=== PATIENT | female | born 1965 | race Caucasian/White ===

== ENCOUNTER 2018-08-07 11:30 | Emergency (ER) | payer OTHER ==
[2018-08-07 12:59] LABS: Urine Bacteria <20 /HPF (<20)
[2018-08-07 13:00] LABS: Urine Culture Reflex Order NOT NEEDED; Urine Mucus 1+ /HPF (NONE SEEN)
--- NOTE | 2018-08-07 13:01 | RAD REPORT ---
EXAM DESCRIPTION: Jorge Cash (2 Views)08/07/2018 12:52 pm CLINICAL HISTORY: Cough COMPARISON: 2014 FINDINGS: The lungs appear clear of acute infiltrate. The heart is normal size IMPRESSION: No acute abnormalities displayed
--- NOTE | 2018-08-07 13:44 | EDPHYS ---
Physician Documentation [facility] Name: Brittany Schulte Age: 53 yrs Sex: Female : 1965 Arrival Date: 08/07/2018 Time: 11:33 Bed 16 Private MD: Rishi Alfaro H ED Physician Dean Zacarias HPI: 08/07 12:10 This 53 yrs old Female presents to ER via Ambulatory with complaints of Sinus cp Congestion, Cough. 12:10 The patient or guardian reports cough, that is intermittent. Onset: The cp symptoms/episode began/occurred 6 month(s) ago, and became worse 4 day(s) ago. Severity of symptoms: in the emergency department the symptoms are unchanged, despite home interventions. Associated signs and symptoms: Pertinent positives: rhinorrhea, sinus congestion, Pertinent negatives: chest pain, fever, sore throat, vomiting. The patient has been recently seen by a physician: the patient's primary care provider, with similar presenting complaints, given RX for cough syrup and inhaler. Historical: - Allergies: 11:40 No Known Allergies; hb - Home Meds: 11:40 Keppra 500 mg Oral tab at bedtime [Active]; hb - PSHx: 11:40 Lumpectomy; Brain sx; hb - Immunization history:: Adult Immunizations up to date. - Social history:: Smoking status: Patient/guardian denies using tobacco. - Ebola Screening: : No symptoms or risks identified at this time. ROS: 12:15 Constitutional: Negative for body aches, chills, fever, poor PO intake. cp 12:15 Eyes: Negative for injury, pain, redness, and discharge. cp 12:15 ENT: Positive for sinus congestion, Negative for drainage from ear(s), ear pain, sore throat, difficulty swallowing, difficulty handling secretions. 12:15 Cardiovascular: Negative for chest pain, edema, palpitations. 12:15 Respiratory: Positive for cough, Negative for shortness of breath, wheezing. 12:15 Abdomen/GI: Negative for abdominal pain, nausea, vomiting, and diarrhea. 12:15 Skin: Negative for cellulitis, rash. 12:15 All other systems are negative. Exam: 12:20 Constitutional: The patient appears in no acute distress, alert, awake, cp non-diaphoretic, non-toxic, well developed, well nourished. 12:20 Head/Face: Normocephalic, atraumatic. cp 12:20 Eyes: Periorbital structures: appear normal, Conjunctiva: normal, no exudate, no injection, Sclera: no appreciated abnormality, Lids and lashes: appear normal, bilaterally. 12:20 ENT: External ear(s): are unremarkable, Ear canal(s): are normal, clear, TM's: bulging, is not appreciated, bilaterally, dullness, bilaterally, erythema, is not appreciated, bilaterally, Nose: is normal, Mouth: Lips: moist, Oral mucosa: pink and intact, moist, Posterior pharynx: Airway: no evidence of obstruction, patent, Tonsils: are normal in appearance, Uvula: midline, non-edematous, no erythema, swelling, is not appreciated, erythema, is not appreciated, exudate, is not appreciated. 12:20 Neck: ROM/movement: is normal, is supple, without pain, no range of motions limitations, no meningismus, no nuchal rigidity. 12:20 Chest/axilla: Inspection: normal, Palpation: is normal, no crepitus, no tenderness. 12:20 Cardiovascular: Rate: normal, Rhythm: regular, Edema: is not appreciated, JVD: is not appreciated. 12:20 Respiratory: the patient does not display signs of respiratory distress, Respirations: normal, no use of accessory muscles, no retractions, no splinting, no tachypnea, labored breathing, is not present, Breath sounds: bronchial sounds, are not appreciated, decreased breath sounds, are not appreciated, stridor, is not appreciated, wheezing: is not appreciated. 12:20 Abdomen/GI: Exam negative for discomfort, distension, guarding, Inspection: abdomen appears normal. 12:20 Back: pain, is absent, ROM is normal. 12:20 Skin: cellulitis, is not appreciated, no rash present. 12:20 Neuro: Orientation: to person, place \T\ time. Mentation: is normal, Cerebellar function: is grossly normal, Motor: is normal, Sensation: is normal. Vital Signs: 11:40 BP 198 / 88; Pulse 88; Resp 16; Temp 97.7; Pulse Ox 100% on R/A; Pain 3/10; hb 13:28 BP 137 / 87; Pulse 85; Resp 18; Temp 97.5; Pulse Ox 100% on R/A; ph MDM: 11:42 Patient medically screened. cp 12:30 Differential Diagnosis: Bronchitis Influenza Asthma Exacerbation Viral Syndrome cp Pneumonia. 13:22 Data reviewed: vital signs, nurses notes, lab test result(s), radiologic studies, plain cp films, and as a result, I will discharge patient. 13:22 Test interpretation: by ED physician or midlevel provider: plain radiologic studies. cp Counseling: I had a detailed discussion with the patient and/or guardian regarding: the historical points, exam findings, and any diagnostic results supporting the discharge/admit diagnosis, lab results, radiology results, the need for outpatient follow up, a family practitioner, to return to the emergency department if symptoms worsen or persist or if there are any questions or concerns that arise at home. 08/07 12:03 Order name: Strep; Complete Time: 13:05 08/07 12:03 Order name: Influenza Screen (a \T\ B); Complete Time: 13:05 08/07 12:34 Order name: Urine Microscopic Only; Complete Time: 13:05 08/07 13:05 Interpretation: Normal except: URBC 10-20; SQEPI 5-10. 08/07 12:59 Order name: Urine Dipstick--Ancillary (enter results) [facility] 08/07 12:59 Order name: Urine --Ancillary (enter results) [facility] 08/07 13:01 Order name: Throat Culture [facility] 08/07 12:03 Order name: XRAY Chest Pa And Lat (2 Views); Complete Time: 13:05 08/07 12:34 Order name: Urine Dipstick-Ancillary (obtain specimen); Complete Time: 12:48 08/07 13:19 Order name: Vital Signs; Complete Time: 13:28 cp Administered Medications: No medications were administered Disposition: 08/07/18 13:43 Discharged to Home. Impression: Cough. - Condition is Stable. - Discharge Instructions: Cough, Adult. - Prescriptions for Tessalon Perles 100 mg Oral Capsule - take 2 capsule by ORAL route every 8 hours As needed; 30 capsule. Medrol ([place]) 4 mg Oral Tablets, Dose Pack - take 1 tablet by ORAL route as directed - follow package instructions; 1 packet. Flonase Allergy Relief 50 mcg/actuation Nasal spray,suspension - inhale 1 spray by INTRANASAL route once daily for 14-21 days; 1 unit. - Medication Reconciliation Form, Thank You Letter, Antibiotic Education, Prescription Opioid Use form. - Follow up: Rishi Alfaro DO; When: 2 - 3 days; Reason: Recheck today's complaints. - Problem is an ongoing problem. - Symptoms have improved. Addendum: 08/09/2018 07:12 Co-signature as Attending Physician, Dean Zacarias MD. r n Signatures: Dispatcher [employer] EDKY Dean Zacarias MD MD rn Smirch, Shelby, RN RN ss Ezio Huynh PA PA cp Yris Devi RN RN Corrections: (The following items were deleted from the chart) 08/07 13:58 13:43 08/07/2018 13:43 Discharged to Home. Impression: Cough. Condition is Stable. ss Forms are Medication Reconciliation Form, Thank You Letter, Antibiotic Education, Prescription Opioid Use. Follow up: Rishi Alfaro; When: 2 - 3 days; Reason: Recheck today's complaints. Problem is an ongoing problem. Symptoms have improved. cp
--- NOTE | 2018-08-07 13:44 | ER ---
Nurse's Notes [facility] Name: Brittany Schulte Age: 53 yrs Sex: Female : 1965 Arrival Date: 08/07/2018 Time: 11:33 Bed 16 Private MD: Rishi Alfaro H Diagnosis: Cough Presentation: 08/07 11:39 Presenting complaint: Patient states: Low back pain, cough, sinus congestion, headache, hb body aches, and burning with urination x 4 days. Transition of care: patient was not received from another setting of care. Onset of symptoms was August 03, 2018. Risk Assessment: Do you want to hurt yourself or someone else? Patient reports no desire to harm self or others. Care prior to arrival: None. 11:39 Method Of Arrival: Ambulatory hb 11:39 Acuity: ANNMARIE 3 hb Historical: - Allergies: 11:40 No Known Allergies; hb - Home Meds: 11:40 Keppra 500 mg Oral tab at bedtime [Active]; hb - PSHx: 11:40 Lumpectomy; Brain sx; hb - Immunization history:: Adult Immunizations up to date. - Social history:: Smoking status: Patient/guardian denies using tobacco. - Ebola Screening: : No symptoms or risks identified at this time. Screenin:41 Abuse screen: Denies threats or abuse. Denies injuries from another. Nutritional hb screening: No deficits noted. Tuberculosis screening: No symptoms or risk factors identified. Fall Risk None identified. Assessment: 12:15 General: Appears in no apparent distress. comfortable, well groomed, Behavior is calm, ph cooperative, appropriate for age. Pain: Complains of pain in "all over" and low back area. Neuro: Level of Consciousness is awake, alert, obeys commands, Oriented to person, place, time, situation. Cardiovascular: Capillary refill < 3 seconds in bilateral fingers Patient's skin is warm and dry. Respiratory: Reports cough that is Airway is patent Respiratory effort is even, unlabored, Respiratory pattern is regular, symmetrical. GI: No signs and/or symptoms were reported involving the gastrointestinal system. : Reports burning with urination, pain in lower back with urination. EENT: Reports nasal congestion nasal discharge Denies difficulty swallowing. Derm: Skin is intact, is healthy with good turgor, Skin is pink, warm \\T\\ dry. Musculoskeletal: Circulation, motion, and sensation intact. Range of motion: intact in all extremities. 13:30 Reassessment: Patient appears in no apparent distress at this time. Patient and/or ph family updated on plan of care and expected duration. Pain level reassessed. Patient is alert, oriented x 3, equal unlabored respirations, skin warm/dry/pink. Pt resting quietly, awaiting d/c family at bedside. Vital Signs: 11:40 BP 198 / 88; Pulse 88; Resp 16; Temp 97.7; Pulse Ox 100% on R/A; Pain 3/10; hb 13:28 BP 137 / 87; Pulse 85; Resp 18; Temp 97.5; Pulse Ox 100% on R/A; ph ED Course: 11:33 Patient arrived in ED. sb2 11:33 Rishi Alfaro DO is Private Physician. sb2 11:40 Triage completed. hb 11:40 Arm band placed on left wrist. hb 11:41 Ezio Huynh PA is PHCP. cp 11:41 Dean Zacarias MD is Attending Physician. cp 11:46 Emmy Fletcher, JENNY is Primary Nurse. ph 12:38 Flu and/or RSV swab sent to lab. Strep swab sent to lab. dh3 12:48 Urine collected: clean catch specimen, clear. dh3 12:50 X-ray completed. Patient tolerated procedure well. sw 12:52 XRAY Chest Pa And Lat (2 Views) In Process Unspecified. EDMS 13:43 Rishi Alfaro DO is Referral Physician. cp 13:58 No provider procedures requiring assistance completed. Patient did not have IV access ss during this emergency room visit. Administered Medications: No medications were administered Outcome: 13:43 Discharge ordered by MD. cp 13:58 Discharged to home ambulatory, with family. ss 13:58 Condition: good 13:58 Discharge instructions given to patient, family, Instructed on discharge instructions, follow up and referral plans. Demonstrated understanding of instructions, follow-up care, medications, Prescriptions given X 3. 13:58 Patient left the ED. ss Signatures: Dispatcher [employer] EDKY Kirti Pressley RN RN Emmy Fletcher RN RN ph Ijeoma Richards Ezio Huynh PA PA cp Baxter, Heather, RN RN Claudia Horvath 3 Catherine Irvin 2
[2018-08-07 14:06] VITALS: O2SAT 100
[2018-08-07 14:08] VITALS: BP 137/87; TEMP 97.5
[2018-08-07 14:16] LABS: Urine Blood 1+ (NEG); Urine Glucose NEGATIVE (NEG); Urine Protein TRACE (NEG)
== END 2018-08-07 13:58 | disposition home or self-care (01) ==
LOC: ER 11:30
DX: R05 Cough (principal)
CPT/HCPCS: 71046; 81003; 81015; 81025; 87070; 87081; 87804; 99283

== ENCOUNTER 2018-08-08 12:12 | Emergency (ER) | payer OTHER ==
--- OUTSIDE RECORDS SUMMARY | 2018-08-08 12:15 | XMS REPORT | Continuity of Care Document ---
:1965 Author Organization Interface Problems Problem Status Onset Classification Date Comments Source Date Reported LOCALIZATION Active 03/17/20 [facility] RELATED EPILEPSY Medical AND EPILEP Center SEIZURES Active 12/11/19 [place] [id number] [facility] Center INTRACTABLE Active 11/07/19 [facility] SEIZURES 15 [facility] Seizures Resolved Problem 08/19/2015 [facility] Final: 01/24/2015 [facility] PSYMOTR EPIL W Active [facility] INTR [facility] Center FEBRILE Active [facility] CONVULSIONS NOS [facility] Medications Medication Details Route Status Patient Ordering Order Source Instructions Provider Date Sodium Chloride 1,000 mL, 1,000 Inactive 01/21[facility] [place] 0.154 MEQ/ML ml/hr, Infuse Formerly named [facility] Medical Injectable Over: 1 hr, [place] Solution Route: IV, 1,000, Drug form: INJ, ONCE, Priority: STAT, Dosing Weight 70 kg, Start date: 01/21/15 10:15:00, Duration: 1 doses or times, Stop date: 01/21/15 10:15:00 Milk of Magnesia 2.4 gm=30 mL, Active [place] 8% oral PO, Daily, PRN 2015 Medical suspension Constipation, X Center 10 day, # 300 mL, 0 Refill(s) Citrate of 300 ml, Route: Inactive 01/21[facility] [place] Magnesia PO, Drug Form: 2014 Medical LIQ, Dosing Center Weight 70, kg, ONCE, NOW, Start date: 01/21/15 8:11:00, Stop date: 01/21/15 8:11:00Notes: (Same as: Citrate of Magnesia) magnesium 300 ml, Route: Inactive 01/21[facility] citrate PO, Drug Form: 2014 Medical LIQ, Dosing Center Weight 70, kg, ONCE, NOW, Start date: 01/21/15 5:58:00, Stop date: 01/21/15 5:58:00Notes: (Same as: Citrate of Magnesia) Acetaminophen 1 tab, PO, Q4H, Active 01/21[facility] [place] 300 MG / Codeine PRN Pain, X 10 2014 Medical Phosphate 30 MG day, # 60 tab, 0 Center Oral Tablet Refill(s) [Tylenol with Codeine #3] heparin sodium, 5,000 unit, 1 Inactive [facility] porcine 2500 mL, Route: 2014 Medical UNT/ML SUB-Q, Drug Center Injectable form: INJ, Q8H, Solution Dosing Weight 70, kg, Start date: 01/21/15 0:00:00, Duration: 30 day, Stop date: 02/19/15 16:00:00Notes: porcine heparin levETIRAcetam 750 mg, 3 tab, No Longer [facility] Route: PO, Drug Active 2014 Medical form: TAB, Q12H, Center Dosing Weight 70, kg, Start date: 01/19/15 21:00:00, Duration: 30 day, Stop date: 02/18/15 9:00:00Notes: (Same as:Kebolivar) Divalproex 500 mg, 1 tab, No Longer [facility] Sodium 500 MG Route: PO, Drug Active 2014 Medical Enteric Coated form: ECTAB, [place] Tablet Q12H, Dosing [Depakote] Weight 70, kg, Start date: 01/19/15 21:00:00, Duration: 30 day, Stop date: 02/18/15 9:00:00, Delayed Release tabletSpecial Instructions: Delayed Release tabletNotes: (Same as: Depakote Delayed Release) Do not confuse with the extended-release tablet. Delayed absorption enteric coated tablet. Do not crush Ondansetron 4 mg, Route: Inactive [facility] IVP, ONCE, 2014 Medical Dosing Weight Center 70, kg, PRN Nausea & Vomiting, Start date: 01/19/15 13:19:00 Naloxone 0.04 mg, Route: Inactive [facility] IVP, Q2MIN, 2014 Medical Dosing Weight Center 70, kg, PRN Narcotic Reversal, Start date: 01/19/15 13:19:00, Duration: 8 doses or times, Stop date: Limited # of times Flumazenil 0.2 mg, Route: Inactive [facility] IVP, PRN, Dosing 2014 Medical Weight 70, kg, Center PRN Benzodiazepine Reversal, Initial dose, Start date: 01/19/15 13:19:00, Duration: 30 day, Stop date: 02/18/15 13:18:00 Hydromorphone 0.5 mg, Route: Inactive [facility] IVP, Q5Min, 2014 Medical Dosing Weight Center 70, kg, PRN Pain Score 7-10, Start date: 01/19/15 13:19:00, Duration: 4 doses or times, Stop date: Limited # of times Keppra 1,000 mg, Route: Inactive [facility] IVPB, ONCE, 2014 Medical Dosing Weight Center 70, kg, Loading Dose, Start date: 01/19/15 13:04:00, Duration: 1 doses or times, Stop date: 01/19/15 13:04:00Notes: Same as Keppra Mix with 100 mL NS, LR or D5W MEDICATION WASTE Product Size: 500 mg Product Wasted: ___ mg Dexamethasone 4 mg, 1 mL, No Longer [facility] Route: IVP, Drug Active 2014 Medical form: INJ, Q6H, Center Dosing Weight 70, kg, Start date: 01/19/15 12:00:00, Duration: 24 hr, Stop date: 01/20/15 6:00:00Notes: Concentration: 4mg/ml Docusate 100 mg, 1 cap, No Longer [facility] Route: PO, Drug Active 2014 Medical form: CAP, Q12H, Center Dosing Weight 70, kg, Start date: 01/19/15 9:00:00, Duration: 30 day, Stop date: 02/17/15 21:00:00Notes: (Same as: Colace) (Do Not Crush) senna 8.6 mg 8.6 mg, 1 tab, No Longer [facility] oral tablet Route: PO, Drug Active 2014 Medical Form: TAB, Center Dosing Weight 70, kg, Q12H, Start date: 01/19/15 9:00:00, Duration: 30 day, Stop date: 02/17/15 21:00:00Notes: (Same as: Senokot) Famotidine 20 mg, 2 mL, Inactive [facility] Route: IVP, Drug 2014 Medical form: INJ, Q12H, Center Dosing Weight 70, kg, Start date: 01/19/15 9:00:00, Duration: 24 hr, Stop date: 01/19/15 21:00:00Notes: (Same as: Pepcid) Can be dilute in 5-10cc NS IVP: Slow IV push over at least 2 minutes. Ancef 2 gm, Route: Inactive [facility] IVPB, ONCE, 2014 Medical Dosing Weight Center 70, kg, Start date: 01/19/15 8:40:00, Duration: 1 doses or times, Stop date: 01/19/15 8:40:00 Cefazolin 2 gm, Route: No Longer [facility] IVPB, Drug form: Active 2014 Medical INJ, Q8H, Dosing Center Weight 70, kg, Priority: Routine, Start date: 01/19/15 7:00:00, Stop date: 01/20/15 9:00:00Notes: (Same As: Ancef, Kefzol) Cefazolin FOR IV SET ONLY MEDICATION WASTE Product Size: 1000 mg Product Wasted: ___ mg Vancomycin 1 gm, Route: Inactive [facility] IVPB, Drug form: 2014 Medical INJ, [id number], Center Dosing Weight 70, kg, Time Critical Medication, Priority: Routine, Start date: 01/19/15 7:00:00, Duration: 2 doses or times, Stop date: 01/19/15 19:00:00Notes: TIME CRITICAL MEDICATION (Same As: Vancocin) Infusion rate 2001 mg: infuse over 2.5 hours MEDICATION WASTE Product Size: 1000 mg Product Wasted: ___ mg Regular Insulin, 3 unit, 0.03 mL, No Longer [facility] Human 100 UNT/ML Route: SUB-Q, Active 2014 Medical Injectable Drug form: SOLN, Center Solution PRN, Dosing Weight 70, kg, PRN Abnormal Lab Result, Start date: 01/19/15 6:36:00, Duration: 30 day, Stop date: 02/18/15 6:35:00Notes: (Same as: Humulin R) Roll in palms of hands gently; Do not shake vigorously. "single patient use only" (Restricted to patients requiring a dose > 60 units) Stable for 28 days at room temperature Expires in days from Da te Dextrose 50% 6.25 gm, 12.5 No Longer [place] Syringe mL, Route: IVP, Active 2014 Medical Drug Form: INJ, Center Dosing Weight 70, kg, PRN, PRN Abnormal Lab Result, Start date: 01/19/15 6:36:00, Duration: 30 day, Stop date: 02/18/15 6:35:00 Ondansetron 4 MG 4 mg, 1 tab, No Longer [place] Disintegrating Route: PO, Drug Active 2014 Medical Tablet form: TABDIS, Center Q6H, Dosing Weight 70, kg, PRN Nausea & Vomiting, Start date: 01/19/15 6:34:00, Duration: 30 day, Stop date: 02/18/15 6:33:00Notes: (Same as: Zofran ODT) Ondansetron 4 mg, 2 mL, No Longer [facility] Route: IVP, Drug Active 2014 Medical form: INJ, Q6H, Center Dosing Weight 70, kg, PRN Nausea & Vomiting, Start date: 01/19/15 6:34:00, Duration: 30 day, Stop date: 02/18/15 6:33:00Notes: (Same as: Zofran) MEDICATION WASTE Product Size: 4 mg Product Wasted: ___ mg NS + KCL 20mEq/L 1,000 mL, Rate: No Longer [place] 1000ml (Premix) 80 ml/hr, Infuse Active 2014 Medical 1,000 mL over: 12.5 hr, Center Route: IV, Dosing Weight 70 kg, Total Volume: 1,000, Hepl[place] IV when PO > 500ml, Start date: 01/19/15 6:34:00, Duration: 30 day, Stop date: 02/18/15 6:33:00Notes: PREMIX IV - Do Not Alter Acetaminophen 650 mg, 2 tab, No Longer [facility] Route: PO, Drug Active 2014 Medical form: TAB, Q6H, Center Dosing Weight 70, kg, PRN For Temp > 100.4 F, Start date: 01/19/15 6:32:00, Duration: 30 day, Stop date: 02/18/15 6:31:00Notes: Do not exceed 4 gm/day. (Same as: Tylenol) Acetaminophen 1 tab, Route: No Longer [place] 325 MG / PO, Drug Form: Active 2014 Medical Hydrocodone TAB, Dosing Center Bitartrate 5 MG Weight 70, kg, Oral Tablet Q4H, PRN Pain [[place] 5/325] Score 1-3, Start date: 01/19/15 6:32:00, Duration: 30 day, Stop date: 02/18/15 6:31:00Notes: (Same as: [place] 325/5) Do not exceed 4gm/day of acetaminophen. Morphine 2 mg, 1 mL, No Longer [place] Route: IVP, Drug Active 2014 Medical form: INJ, Q2H, Center Dosing Weight 70, kg, PRN Pain Score 7-10, Start date: 01/19/15 6:32:00, Duration: 30 day, Stop date: 02/18/15 6:31:00Notes: (Same as:MORPhine Sulfate) Hydralazine 10 mg, 0.5 mL, No Longer [place] Route: IVP, Drug Active 2014 Medical form: INJ, Q2H, Center Dosing Weight 70, kg, PRN Hypertension, Start date: 01/19/15 6:32:00, Duration: 30 day, Stop date: 02/18/15 6:31:00Notes: (Same as: Apresoline) Push over 5 minutes Divalproex 500 mg, 1 tab, Inactive [place] Sodium 500 MG Route: PO, Drug 2014 Medical Enteric Coated form: ECTAB, [place] Tablet ONCE, Dosing Weight 70.455, kg, Start date: 11/19/14 10:05:00, Stop date: 11/19/14 10:05:00, Delayed Release tabletSpecial Instructions: Delayed Release tabletNotes: (Same as: Depakote Delayed Release) Do not confuse with the extended-release tablet. Delayed absorption enteric coated tablet. Do not crush Keppra XR 750mg Keppra XR 750mg No Longer [place] tablet tablet, 750 mg, Active 2014 Medical Drug form: MISC, [place] Route: PO, Bedtime, 11/16/14 21:00:00, Duration: 30 day, Stop date: 12/15/14 21:00:00 Keppra XR 750 mg, Route: Inactive [place] PO, Drug form: 2014 Medical ERTAB, Daily, Center Dosing Weight 70.455, kg, Start date: 11/16/14 9:00:00, Duration: 30 day, Stop date: 12/15/14 9:00:00 Divalproex 500 mg, 1 tab, No Longer [place] Sodium 500 MG Route: PO, Drug Active 2014 Medical Enteric Coated form: ECTAB, Center Tablet Q12H, Dosing [Depakote] Weight 70.455, kg, Start date: 11/16/14 9:00:00, Duration: 30 day, Stop date: 12/15/14 21:00:00 24 HR 750 mg=1 tab, Active [place] Levetiracetam PO, Daily 2014 Medical 750 MG Extended Center Release Tablet [Keppra] Levetiracetam 750 mg=1 tab, Inactive [place] 750 MG Oral PO, Bedtime, 0 2014 Medical Tablet [Keppra] Refill(s) Center Divalproex 500 mg=1 tab, Active [place] Sodium 500 MG PO, BID, 0 2014 Medical Enteric Coated Refill(s) Center Tablet [Depakote] Saline Flush 10 ml, Route: No Longer [place] 0.9% IVP, Drug Form: Active 2014 Medical INJ, kg, Q12H, Center Start date: 11/15/14 9:00:00, Duration: 30 day, Stop date: 12/14/14 21:00:00Notes: (Same as: BD Posiflush) Saline Flush 10 ml, Route: No Longer [place] 0.9% IVP, Drug Form: Active 2014 Medical INJ, kg, PRN, Center PRN Line Flush, Start date: 11/15/14 8:32:00, Duration: 30 day, Stop date: 12/15/14 8:31:00Notes: (Same as: BD Posiflush) Allergies, Adverse Reactions, Alerts Substance Category Reaction Severity Reaction Status Date Comments Source type Reported Immunizations Immunization Date Given Site Status Last Updated Comments Source Results Order Name Results Value Reference Date Interpretation Comments Source Range Brain wo Brain wo EXAM: MRI BRAIN WITHOUT CONTRAST 08/16 - [facility] contrast contrast /2015 - Medical MRI This report was dictated by a Vamp Marker/Fellow. I have personally reviewed the images as Center well as the Resident's interpretation and agree with the findings. DATE: Aug 16, 2015 09:20:00 AM Read by: Marley Rojo MD Resident: Marley Rojo MD Dictated Date/time: 08/16/15 11:10 Electronically Signed by: Anamaria Mendoza 08/16/15 11:54 FINAL REPORT INDICATION: Epilepsy TECHNIQUE: Multiplanar multisequence MRI images of the head were obtained without intravenous contrast administration. COMPARISON: MR of the brain dated November 15, 2014 FINDINGS: Postsurgical changes related to right anterior temporal lobectomy and amygdalohippocampectomy with minimal surrounding gliosis. No evidence of mass effect, midline shift or acute intracranial hemorrhage. Few scattered T2/FLAIR hyperintensities in the subcortical white matter, compatible with chronic microvascular ischemic change, not unexpected for patient age. The ventricles and cerebral sulci have normal size and configuration. Normal flow voids are maintained in the major intracranial vessels. The orbits, paranasal sinuses and mastoid air cells appear unremarkable. A 9 mm hemangioma is noted in the left side of the clivus, an d appears unchanged as compared to prior imaging. IMPRESSION: Postsurgical changes related to right anterior temporal lobectomy and amygdalohippocampectomy with minimal surrounding gliosis. CHEM PANEL eGFR 74 01/20 1Result Comment: The eGFR is calculated using the CKD-EPI formula. In most young, healthy individuals the eGFR will be >90 mL/ min/1.73m2. The eGFR declines with age. An eGFR of 60-89 may be normal in [facility] mL/min/1.73 /2014 some populations, particularly the elderly, for whom the CKD-EPI formula has not been extensively validated. Use of the eGFR is not recommended in the following populations: Medical Center Individuals with unstable creatinine concentrations, including patients and those with serious co-morbid conditions. Patients with extremes in muscle mass or diet. The data above are obtained from the National Kidney Disease Education Program (NKDEP) which additionally recommends that when the eGFR is used in patients with extremes of body mass index for purposes of drug dosing, the eGFR should be multiplied by the estimated BMI. CHEM PANEL Chloride Lvl 109 meq/L 95 - 109 01/20 [facility] CHEM PANEL CO2 22 meq/L 24 - 32 01/20 [facility] CHEM PANEL Potassium 4.1 meq/L 3.5 - 5.1 01/20 [facility] CHEM PANEL Sodium Lvl 141 meq/L 135 - 145 01/20 [facility] CHEM PANEL Creatinine 0.9 mg/dL 0.5 - 1.4 01/20 [facility] CHEM PANEL BUN 12 mg/dL 7 - 22 01/20 [facility] CHEM PANEL Calcium Lvl 9.1 mg/dL 8.5 - 10.5 01/20 [facility] CHEM PANEL Glucose Lvl 155 mg/dL 70 - 99 01/20 3Interpretive Data: Adult reference range values reflect the clinical guidelines of the [place] [employer]. [facility] CHEM PANEL AGAP 14.1 meq/L 10.0 - 01/20 20.0 [facility] HEMATOLOGY Monocytes # 0.2 K/CMM 0.0 - 0.8 01/20 [facility] HEMATOLOGY Segs 90.3 % 45.0 - 07 75.0 [facility] HEMATOLOGY Monocytes 1.8 % 2.0 - 12.0 01/20 [facility] HEMATOLOGY Basophils 0.1 % 0.0 - 1.0 01/20 [facility] HEMATOLOGY Segs-Bands # 7.6 K/CMM 1.5 - 8.1 01/20 [facility] HEMATOLOGY Lymphocytes 0.7 K/CMM 1.0 - 5.5 01/20 [place] # /2014 [facility] HEMATOLOGY Lymphocytes 7.8 % 20.0 - 07 40.0 [facility] HEMATOLOGY RDW 12.9 % 11.5 - 07 14.5 [facility] HEMATOLOGY Hct 30.9 % 36.0 - 07 48.0 [facility] HEMATOLOGY MCV 92.2 fL 80.0 - 07 98.0 /2014 [facility] HEMATOLOGY MCH 31.5 pg 27.0 - 01/20 31.0 [facility] HEMATOLOGY MCHC 34.2 g/dL 32.0 - 01/20 [facility] 36.0 /2014 [facility] HEMATOLOGY Platelet 165 K/CMM 133 - 450 01/20 [facility] HEMATOLOGY MPV 9.9 fL 7.4 - 10.4 01/20 [facility] HEMATOLOGY Hgb 10.6 g/dL 12.0 - 01/20 [facility] 16.0 /2014 [facility] HEMATOLOGY RBC 3.35 M/CMM 4.20 - 01/20 [facility] 5.40 /2014 [facility] HEMATOLOGY WBC 8.5 K/CMM 3.7 - 10.4 01/20 [facility] HEMATOLOGY INR 1.10 0.85 - 01/20 5Interpretive Data: RECOMMENDED RANGES FOR PROTIME INR: [facility] . 2.0-3.0 for most medical and surgical thromboembolic states. Medical 2.5-3.5 for artificial heart valves and recurrent embolism. Center INR SHOULD BE USED ONLY FOR PATIENTS ON STABLE ANTICOAGULANT THERAPY. HEMATOLOGY PTT 27.4 s 22.9 - 01/20 7Interpretive [facility] 35.8 Data: Heparin [facility] Range: 57 - 92 Seconds HEMATOLOGY PT 14.3 s 12.0 - 01/20 [facility] 14.7 [facility] IMMUNOLOGY Hep C Ab Negative 01/19 [facility] (01/19/15 12:01 PM) Brain wo Brain wo EXAM: CT BRAIN WITHOUT CONTRAST 01/19 [facility] contrast CT contrast CT /2014 [facility] DATE: 01/19/2015 Read by: Arsenio Ivey MD Dictated Date/time: 01/19/15 18:17 Electronically Signed by: Arsenio Ivey MD 01/19/15 18:21 FINAL REPORT INDICATION: Confusion, anterior temporal lobectomy TECHNIQUE: Noncontrast axial imaging was obtained from the vertex to the skull base. COMPARISON: MRI brain from 11/15/2014 FINDINGS: Recent postoperative changes related to right convexity craniotomy and anterior temporal lobectomy. There is a small amount of hemorrhage along the margins of the resection cavity. Expected po stoperative pneumocephalus. A right scalp drainage catheters in place. No hydrocephalus or significant midline shift. Basal cisterns remain patent. Minimal edema adjacent to the resection cavity. Otherwise, the worley- white matter interface is maintained. IMPRESSION: Expected postoperative changes following right anterior temporal lobectomy. BLOOD BANK Antibody Negative 01/19 [facility] RESULTS [facility]rn [facility] (01/19/15 7:16 AM) [place] BLOOD BANK ABO/Rh O POS 01/19 [facility] RESULTS [facility] BLOOD BANK RBC product Product available 01/19 [facility] RESULTS [facility] (01/19/15 6:26 AM) [place] CHEM PANEL Magnesium 2.2 mg/dL 1.8 - 2.4 01/07 [facility] Lvl /2014 [facility] CHEM PANEL eGFR 106 01/07 2Result Comment: The eGFR is calculated using the CKD-EPI formula. In most young, healthy individuals the eGFR will be > 90 mL/min/1.73m2. The eGFR declines with age. An eGFR of 60-89 may be normal in [facility] mL/min/1.73 some populations, particularly the elderly, for whom the CKD-EPI formula has not been extensively validated. Use of the eGFR is not recommended in the following populations: [place] [id number] Center Individuals with unstable creatinine concentrations, including patients and those with serious co-morbid conditions. Patients with extremes in muscle mass or diet. The data above are obtained from the National Kidney Disease Education Program (NKDEP) which additionally recommends that when the eGFR is used in patients with extremes of body mass index for purposes of drug dosing, the eGFR should be multiplied by the estimated BMI. CHEM PANEL Bili Total 0.5 mg/dL 0.2 - 1.3 01/07 [facility] CHEM PANEL AST 11 unit/L 0 - 37 01/07 [facility] CHEM PANEL Alk Phos 91 unit/L 39 - 136 01/07 [facility] CHEM PANEL ALT 22 unit/L 0 - 65 01/07 [facility] CHEM PANEL Albumin Lvl 4.3 g/dL 3.5 - 5.0 01/07 [facility] CHEM PANEL Creatinine 0.6 mg/dL 0.5 - 1.4 01/07 [facility] Lv [facility] CHEM PANEL BUN 14 mg/dL 7 - 22 01/07 [facility] CHEM PANEL CO2 31 meq/L 24 - 32 01/07 [facility] CHEM PANEL Chloride Lvl 102 meq/L 95 - 109 01/07 [facility] CHEM PANEL Potassium 4.4 meq/L 3.5 - 5.1 01/07 [facility] Lvl /2014 [facility] CHEM PANEL Sodium Lvl 141 meq/L 135 - 145 01/07 [facility] CHEM PANEL Total 7.6 g/dL 6.4 - 8.4 01/07 Protein [facility] CHEM PANEL Calcium Lvl 9.6 mg/dL 8.5 - 10.5 01/07 [facility] CHEM PANEL Glucose Lvl 98 mg/dL 70 - 99 01/07 4Interpretive Data: Adult reference range values reflect the clinical guidelines of the [place] [employer]. [facility] CHEM PANEL AGAP 12.4 meq/L 10.0 - 01/07 20.0 [facility] CHEM PANEL A/G Ratio 1.3 0.7 - 1.6 01/07 [facility] CHEM PANEL Globulin 3.3 g/dL 2.0 - 4.0 01/07 [facility] CHEM PANEL B/C Ratio 23 6 - 25 01/07 [facility] HEMATOLOGY INR 0.94 0.85 - 01/07 6Interpretive Data: RECOMMENDED RANGES FOR PROTIME INR: [facility] 1. 2.0-3.0 for most medical and surgical thromboembolic states. Medical 2.5-3.5 for artificial heart valves and recurrent embolism. Center INR SHOULD BE USED ONLY FOR PATIENTS ON STABLE ANTICOAGULANT THERAPY. HEMATOLOGY PT 12.5 s 12.0 - 01/07 14.7 [facility] HEMATOLOGY PTT 30.3 s 22.9 - 01/07 8Interpretive [facility] 35.8 Data: Heparin [facility] Range: 57 - 92 Seconds HEMATOLOGY Platelet 221 K/CMM 133 - 450 01/07 [facility] HEMATOLOGY RDW 13.4 % 11.5 - 01/07 14.5 [facility] HEMATOLOGY MPV 9.8 fL 7.4 - 10.4 01/07 [facility] HEMATOLOGY MCV 93.3 fL 80.0 - 01/07 98.0 [facility] HEMATOLOGY MCHC 32.5 g/dL 32.0 - 01/07 36.0 [facility] HEMATOLOGY MCH 30.4 pg 27.0 - 01/07 [place] 31.0 [facility] HEMATOLOGY Hct 42.1 % 36.0 - 01/07 [place] 48.0 /2015 [facility] HEMATOLOGY RBC 4.51 M/CMM 4.20 - 01/07 [place] 5.40 /2014 [facility] HEMATOLOGY WBC 4.7 K/CMM 3.7 - 10.4 01/07 [facility] HEMATOLOGY Hgb 13.7 g/dL 12.0 - 01/07 [place] 16.0 /2014 [facility] HEMATOLOGY Lymphocytes 2.3 K/CMM 1.0 - 5.5 01/07 # /2015 [facility] HEMATOLOGY Monocytes # 0.3 K/CMM 0.0 - 0.8 01/07 /2014 [facility] HEMATOLOGY Eosinophils 0.1 K/CMM 0.0 - 0.5 01/07 # /2014 [facility] HEMATOLOGY Segs 42.7 % 45.0 - 01/07 [place] 75.0 /2014 [facility] HEMATOLOGY Basophils 0.2 % 0.0 - 1.0 01/07 [facility] HEMATOLOGY Segs-Bands # 2.0 K/CMM 1.5 - 8.1 01/07 /2014 [facility] HEMATOLOGY Lymphocytes 49.5 % 20.0 - 01/07 [place] 40.0 /2015 [facility] HEMATOLOGY Monocytes 6.4 % 2.0 - 12.0 01/07 [facility] HEMATOLOGY Eosinophils 1.2 % 0.0 - 4.0 01/07 [facility] CHEM PANEL Globulin 3.4 g/dL 2.0 - 4.0 11/15 [facility] CHEM PANEL A/G Ratio 1.2 0.7 - 1.6 11/15 [facility] CHEM PANEL Bili 0.4 mg/dL 0.0 - 1.0 11/15 Indirect [facility] CHEM PANEL Albumin Lvl 4.0 g/dL 3.5 - 5.0 11/15 [facility] CHEM PANEL ALT 20 unit/L 0 - 65 11/15 [facility] CHEM PANEL AST 14 unit/L 0 - 37 11/15 2014 [facility] CHEM PANEL Total 7.4 g/dL 6.4 - 8.4 11/15 [facility] CHEM PANEL Bili Direct 0.1 mg/dL 0.0 - 0.3 11/15 [facility] CHEM PANEL Alk Phos 78 unit/L 39 - 136 11/15 [facility]2014 [facility] CHEM PANEL Bili Total 0.5 mg/dL 0.2 - 1.3 11/15 [facility] ELECTROLYTE AGAP 9.1 meq/L 10.0 - 11/15 [facility] 20.0 [facility] ELECTROLYTE eGFR 106 11/15 1Result Comment: The eGFR is calculated using the CKD-EPI formula. In most young, healthy individuals the eGFR will be > 90 mL/min/1.73m2. The eGFR declines with age. An eGFR of 60-89 may be normal in [facility] mL/min/1.73 some populations, particularly the elderly, for whom the CKD-EPI formula has not been extensively validated. Use of the eGFR is not recommended in the following populations: [address] Individuals with unstable creatinine concentrations, including patients and those with serious co-morbid conditions. Patients with extremes in muscle mass or diet. The data above are obtained from the National Kidney Disease Education Program (NKDEP) which additionally recommends that when the eGFR is used in patients with extremes of body mass index for purposes of drug dosing, the eGFR should be multiplied by the estimated BMI. ELECTROLYTE BUN 17 mg/dL 7 - 22 11/15 [facility] ELECTROLYTE Glucose Lvl 81 mg/dL 70 - 99 11/15 2Interpretive Data: Adult reference range values reflect the clinical guidelines [facility] of the [place] [employer]. [facility] ELECTROLYTE Calcium Lvl 9.0 mg/dL 8.5 - 10.5 11/15 [facility] ELECTROLYTE CO2 31 meq/L 24 - 32 11/15 [facility] ELECTROLYTE Creatinine 0.6 mg/dL 0.5 - 1.4 11/15 [facility] ELECTROLYTE Chloride Lvl 105 meq/L 95 - 109 11/15 [facility] ELECTROLYTE Sodium Lvl 141 meq/L 135 - 145 11/15 [facility] ELECTROLYTE Potassium 4.1 meq/L 3.5 - 5.1 11/15 [facility] HEMATOLOGY Basophils 0.3 % 0.0 - 1.0 11/15 [facility]2014 [facility] HEMATOLOGY Eosinophils 0.7 % 0.0 - 4.0 11/15 [facility] HEMATOLOGY Monocytes 9.1 % 2.0 - 12.0 11/15 [facility] HEMATOLOGY Lymphocytes 46.9 % 20.0 - 11/15 40.0 [facility] HEMATOLOGY Segs 43.0 % 45.0 - 11/15 75.0 /2014 [facility] HEMATOLOGY Lymphocytes 2.4 K/CMM 1.0 - 5.5 11/15 # /2014 [facility] HEMATOLOGY Segs-Bands # 2.2 K/CMM 1.5 - 8.1 11/15 [facility] HEMATOLOGY Monocytes # 0.5 K/CMM 0.0 - 0.8 11/15 [facility] HEMATOLOGY MPV 11.1 fL 7.4 - 10.4 11/15 [facility] HEMATOLOGY RBC 4.47 M/CMM 4.20 - 11/15 5.40 [facility] HEMATOLOGY Hgb 13.3 g/dL 12.0 - 11/15 16.0 [facility] HEMATOLOGY RDW 13.2 % 11.5 - 11/15 14.5 [facility] HEMATOLOGY Platelet 142 K/CMM 133 - 450 11/15 [facility] HEMATOLOGY WBC 5.1 K/CMM 3.7 - 10.4 11/15 [facility] HEMATOLOGY Hct 41.7 % 36.0 - 11/15 48.0 [facility] HEMATOLOGY MCH 29.7 pg 27.0 - 11/15 31.0 [facility] HEMATOLOGY MCHC 31.9 g/dL 32.0 - 11/15 36.0 [facility] HEMATOLOGY MCV 93.2 fL 80.0 - 11/15 98.0 [facility] TOXICOLOGY [place] Lvl 11 11/15 3Result Comment: Therapeutic Levels: [facility] / Drug Dosage Trough (mcg/mL) Peak (mcg/mL) Medical L 500 mg BID 3.1 - 10.0 10.0 - 25.0 Center 1000 mg BID 4.9 - 37.1 30.0 - 40.0 1500 mg BID 7.0 - 34.0 36.1 - 70.0 Toxic level not established Test Performed at: [employer] [facility], [address] [place] [address] B [place]IVER[place], [facility] TOXICOLOGY Valproic 121 ug/ml 50 - 100 11/15 [facility] Acid LvFormerly named [facility] [place] Vital Signs Vital Sign Value Date Comments Source Respitory Rate 17 01/21/2015 [facility] Systolic (mm Hg) 102 01/21/2015 [facility] Diastolic (mm Hg) 69 01/21/2015 [facility] Heart Rate 69 01/21/2015 [facility] Respitory Rate 18 01/21/2015 [facility] Heart Rate 67 01/21/2015 [facility] Systolic (mm Hg) 97 01/21/2015 [facility] Diastolic (mm Hg) 70 01/21/2015 [facility] Systolic (mm Hg) 79 01/21/2015 [facility] Diastolic (mm Hg) 56 01/21/2015 [facility] Respitory Rate 18 01/21/2015 [facility] Heart Rate 65 01/21/2015 [facility] Temperature Oral (F) 98.1 F 01/21/2015 [facility] Temperature Oral (F) 97 F 01/21/2015 [facility] Temperature Oral (F) 98 F 01/21/2015 [facility] Height 162.56 cm 01/19/2015 [facility] Weight 70 01/19/2015 [facility] BMI Calculated 26.49 01/19/2015 [facility] Height 162.56 cm 01/07/2015 [facility] BMI Calculated 26.49 01/07/2015 [facility] Weight 70 01/07/2015 [facility] Temperature Oral (F) 97.8 F 11/20/2014 [facility] Heart Rate 78 11/20/2014 [facility] Respitory Rate 16 11/20/2014 [facility] Systolic (mm Hg) 121 11/20/2014 [facility] Diastolic (mm Hg) 78 11/20/2014 [facility] Heart Rate 80 11/20/2014 [facility] Temperature Oral (F) 97.3 F 11/20/2014 [facility] Systolic (mm Hg) 120 11/20/2014 [facility] Diastolic (mm Hg) 77 11/20/2014 [facility] Respitory Rate 17 11/20/2014 [facility] Temperature Oral (F) 98.1 F 11/19/2014 [facility] Systolic (mm Hg) 133 11/19/2014 [facility] Diastolic (mm Hg) 82 11/19/2014 [facility] Respitory Rate 16 11/19/2014 [facility] Heart Rate 72 11/19/2014 [facility] Weight 70.455 11/15/2014 [facility] Height 162.56 cm 11/15/2014 [facility] BMI Calculated 26.66 11/15/2014 [facility] Encounters Location Location Encounter Encounter Reason Attending ADM DC Status Source Details Type Number For Provider Date Date Visit [facility] Inpatient [id number] Taqueria 11/15 11/20 [facility] Mejia /2014 [facility] ([place], [place]) Inpatient [id number] Taqueria 01/19 01/21 [facility] /2014 [facility] ([place] [place] Outpatient [id number] Jean-Pierre 08/16 08/17 [facility] Yarelis /2015 [facility] ([place] [place] Procedures Procedure Code Date Perfomer Comments Source
--- OUTSIDE RECORDS SUMMARY | 2018-08-08 12:16 | XMS REPORT | Summary of Care ---
:1965 Author Organization [facility] Address [address] [place] [id number] Encounter [facility] Tan_candie(FIN) [id number] Date(s): 08/16/15 - 08/16/15 [facility] [address] [place] [id number]- [employer] Discharge Disposition: Home Attending Physician: Jean-Pierre Santoyo MD Referring Physician: Jean-Pierre Santoyo MD Vital Signs No data available for this section Problem List Condition Effective Dates Status Health Status Informant Seizures(Confirmed) Resolved Allergies, Adverse Reactions, Alerts Substance Reaction Severity Status NKDA Active Medications No data available for this section Results No data available for this section Immunizations No data available for this section Procedures No data available for this section Social History Social History Type Response Alcohol Never Smoking Status Never smoker; Exposure to Tobacco Smoke None; Cigarette Smoking Last 365 Days No; Reg Smoking Cessation Counseling Yes Assessment and Plan No data available for this section
--- OUTSIDE RECORDS SUMMARY | 2018-08-08 12:16 | XMS REPORT | Summary of Care ---
:1965 Author Encounter HQ Ashlee(ROSSY) [id number] Date(s): 11/15/14 - 11/20/14 [facility] [address] [place] [address] Professional Services provided by [facility] [place] [address]- Discharge Disposition: Home Physician Attending: Erik Horn MD Physician Admitting: Erik Horn MD Physician_Referring: Taqueria Mejia MD Vital Signs Most recent to oldest 1 2 3 [Reference Range]: Height 162.56 cm (11/15/14 8:44 AM) Temperature Oral [96.4-99.1 97.8 DegF 97.3 DegF 98.1 DegF DegF] (11/20/14 8:32 AM) (11/19/14 7:45 PM) (11/19/14 8:47 AM) Blood Pressure [90-140/60-90 121/78 mmHg 120/77 mmHg 133/82 mmHg mmHg] (11/20/14 8:32 AM) (11/19/14 7:45 PM) (11/19/14 8:47 AM) Respiratory Rate [14-20 BRMIN] 16 BRMIN 17 BRMIN 16 BRMIN (11/20/14 8:32 AM) (11/19/14 7:45 PM) (11/19/14 8:47 AM) Peripheral Pulse Rate [60-100 78 bpm 80 bpm 72 bpm bpm] (11/20/14 8:32 AM) (11/19/14 7:45 PM) (11/19/14 8:47 AM) Weight 70.455 kg (11/15/14 8:44 AM) Body Mass Index 26.66 m2 (11/15/14 8:44 AM) Problem List Condition Effective Dates Status Health Status Informant Seizures(Confirmed) Resolved Allergies, Adverse Reactions, Alerts Substance Reaction Severity Status NKDA Active Medications Depakote 500 mg oral enteric coated tablet 500 mg=1 tab, PO, BID, 0 Refill(s) Start Date: 11/15/14 Status: OrderedDepakote 500 mg oral enteric coated tablet 500 mg, 1 tab, Route: PO, Drug form: ECTAB, Q12H, Dosing Weight 70.455, kg, Start date: 11/16/14 9:00:00, Duration: 30 day, Stop date: 12/15/14 21:00:00 Start Date: 11/16/14 Stop Date: 11/20/14 Status: DiscontinuedDepakote 500 mg oral enteric coated tablet 2 tabs, PO, Bedtime, 0 Refill(s) Start Date: 11/15/14 Stop Date: 11/15/14 Status: Discontinueddivalproex sodium 500 mg oral enteric coated tablet ( Depakote) 500 mg, 1 tab, Route: PO, Drug form: ECTAB, ONCE, Dosing Weight 70.455, kg, Start date: 11/19/14 10:05:00, Stop date: 11/19/14 10:05:00, Delayed Release tablet Special Instructions: Delayed Release tablet Notes: (Same as: Depakote Delayed Release) Do not confuse with the extended- release tablet. Delayed absorption enteric coated tablet. Do not crush Start Date: 11/19/14 Stop Date: 11/19/14 Status: CompletedKeppra 750 mg oral tablet 750 mg=1 tab, PO, Bedtime, 0 Refill(s) Start Date: 11/15/14 Stop Date: 11/15/14 Status: DiscontinuedKeppra XR 750 mg, Route: PO, Drug form: ERTAB, Daily, Dosing Weight 70.455, kg, Start date : 11/16/14 9:00:00, Duration: 30 day, Stop date: 12/15/14 9:00:00 Start Date: 11/16/14 Stop Date: 11/16/14 Status: DeletedKeppra XR 750 mg oral tablet, extended release 750 mg=1 tab, PO, Daily Start Date: 11/15/14 Status: OrderedKeppra XR 750mg tablet Keppra XR 750mg tablet, 750 mg, Drug form: MISC, Route: PO, Bedtime, 11/16/14 21 :00:00, Duration: 30day, Stop date: 12/15/14 21:00:00 Start Date: 11/16/14 Stop Date: 11/20/14 Status: DiscontinuedSaline Flush 0.9% 10 ml, Route: IVP, Drug Form: INJ, kg, Q12H, Start date: 11/15/14 9:00:00, Duration: 30 day, Stop date: 12/14/14 21:00:00 Notes: (Same as: BD Posiflush) Start Date: 11/15/14 Stop Date: 11/20/14 Status: DiscontinuedSaline Flush 0.9% 10 ml, Route: IVP, Drug Form: INJ, kg, PRN, PRN Line Flush, Start date: 8:32:00, Duration: 30 day, Stop date: 12/15/14 8:31:00 Notes: (Same as: BD Posiflush) Start Date: 11/15/14 Stop Date: 11/20/14 Status: Discontinued Results ELECTROLYTES Most recent to oldest [Reference Range]: 1 Sodium Lvl [135-145 mEq/L] 141 mEq/L (11/15/14 11:11 AM) Potassium Lvl [3.5-5.1 mEq/L] 4.1 mEq/L (11/15/14 11:11 AM) Chloride Lvl [95-109 mEq/L] 105 mEq/L (11/15/14 11:11 AM) CO2 [24-32 mEq/L] 31 mEq/L (11/15/14 11:11 AM) AGAP [10.0-20.0 mEq/L] 9.1 mEq/L *LOW* (11/15/14 11:11 AM) CHEM PANEL Most recent to oldest [Reference Range]: 1 Creatinine Lvl [0.5-1.4 mg/dL] 0.6 mg/dL (11/15/14 11:11 AM) eGFR 106 mL/min/1.73m2 1 *NA* (11/15/14 11:11 AM) BUN [7-22 mg/dL] 17 mg/dL (11/15/14 11:11 AM) Glucose Lvl [70-99 mg/dL] 81 mg/dL 2 (11/15/14 11:11 AM) Total Protein [6.4-8.4 g/dL] 7.4 g/dL (11/15/14 11:11 AM) Albumin Lvl [3.5-5.0 g/dL] 4.0 g/dL (11/15/14 11:11 AM) Globulin [2.0-4.0 g/dL] 3.4 g/dL (11/15/14 11:11 AM) A/G Ratio [0.7-1.6] 1.2 (11/15/14 11:11 AM) Calcium Lvl [8.5-10.5 mg/dL] 9.0 mg/dL (11/15/14 11:11 AM) ALT [0-65 unit/L] 20 unit/L (11/15/14 11:11 AM) AST [0-37 unit/L] 14 unit/L (11/15/14 11:11 AM) Alk Phos [39-136 unit/L] 78 unit/L (11/15/14 11:11 AM) Bili Total [0.2-1.3 mg/dL] 0.5 mg/dL (11/15/14 11:11 AM) Bili Direct [0.0-0.3 mg/dL] 0.1 mg/dL (11/15/14 11:11 AM) Bili Indirect [0.0-1.0 mg/dL] 0.4 mg/dL (11/15/14 11:11 AM) 1Result Comment: The eGFR is calculated using the CKD-EPI formula. In most young , healthy individualsthe eGFR will be >90 mL/min/1.73m2. The eGFR declines with age. An eGFR of 60-89 may be normal in some populations, particularly the elderly, for whom the CKD-EPI formula has not been extensively validated. Use of the eGFR is not recommended in the following populations: Individuals with unstable creatinine concentrations, including patients and those with serious co-morbid conditions. Patients with extremes in muscle mass or diet. The data above are obtained from the National Kidney Disease Education Program ( NKDEP) which additionally recommends that when the eGFR is used in patients with extremes of body mass index for purposesof drug dosing, the eGFR should be multiplied by the estimated BMI.2Interpretive Data: Adult reference range values reflect the clinical guidelines of the [place] [employer].TOXICOLOGY Most recent to oldest [Reference Range]: 1 Valproic Acid Lvl [50-100 ug/ml] 121 ug/ml *HI* (11/15/14 11:11 AM) Keppa Lvl 11 microgram/mL 3 *NA* (11/15/14 11:11 AM) 3Result Comment: Therapeutic Levels: Drug Dosage Trough (mcg/mL) Peak (mcg/mL) 500 mg BID 3.1 - 10.0 10.0 - 25.0 1000 mg BID 4.9 - 37.1 30.0 - 40.0 1500 mg BID 7.0 - 34.0 36.1 - 70.0 Toxic level not established Test Performed at: [employer] [facility], [id number] [place] [id number] Farrah Hunt MD, FCAPHEMATOLOGY Most recent to oldest [Reference Range]: 1 WBC [3.7-10.4 K/CMM] 5.1 K/CMM (11/15/14 11:11 AM) RBC [4.20-5.40 M/CMM] 4.47 M/CMM (11/15/14 11:11 AM) Hgb [12.0-16.0 g/dL] 13.3 g/dL (11/15/14 11:11 AM) Hct [36.0-48.0 %] 41.7 % (11/15/14 11:11 AM) MCV [80.0-98.0 fL] 93.2 fL (11/15/14 11:11 AM) MCH [27.0-31.0 pg] 29.7 pg (11/15/14 11:11 AM) MCHC [32.0-36.0 g/dL] 31.9 g/dL *LOW* (11/15/14 11:11 AM) RDW [11.5-14.5 %] 13.2 % (11/15/14 11:11 AM) Platelet [133-450 K/CMM] 142 K/CMM (11/15/14 11:11 AM) MPV [7.4-10.4 fL] 11.1 fL *HI* (11/15/14 11:11 AM) Segs [45.0-75.0 %] 43.0 % *LOW* (11/15/14 11:11 AM) Lymphocytes [20.0-40.0 %] 46.9 % *HI* (11/15/14 11:11 AM) Monocytes [2.0-12.0 %] 9.1 % (11/15/14 11:11 AM) Eosinophils [0.0-4.0 %] 0.7 % (11/15/14 11:11 AM) Basophils [0.0-1.0 %] 0.3 % (11/15/14 11:11 AM) Segs-Bands # [1.5-8.1 K/CMM] 2.2 K/CMM (11/15/14 11:11 AM) Lymphocytes # [1.0-5.5 K/CMM] 2.4 K/CMM (11/15/14 11:11 AM) Monocytes # [0.0-0.8 K/CMM] 0.5 K/CMM (11/15/14 11:11 AM) Immunizations No data available for this section Procedures No data available for this section Social History Social History Type Response Alcohol Never Smoking Status Never smoker; Exposure to Tobacco Smoke None; Cigarette Smoking Last 365 Days No; Reg Smoking Cessation Counseling No Assessment and Plan Extracted from: Title: EMU Discharge Summary Author: Ariane Bahena MD Date: 11/20/14 EMU Discharge Summary Referring Physician: Dr. Mejia Attending Physician: Dr. Horn Date of admission: 11/15/14 Date of discharge: 11/20/14 Epilepsy classification: right temporal lobe epilespy Anticonvulsants on discharge: Keppra 750 mg XR qhs, Depakote 500 mg BID Other medications on discharge; Allergies: NKDA, none Follow-up: Dr. Mejia Reason for EMU evaluation: phase I evaluation Seizure history: This is a 49-year-old right-handed female referred by Dr. Mejia for evaluation of a seizure disorder. Pt speaks primarily Fijian, but also speaks some Gambian. Pts was in the room and helped translate. Pt states she began having seizures in the 7th grade where she would simply "faint." Pt was not sure about what workup was done as a child and what medications were tried, but pt was ultimately given the diagnosis of epilepsy. Pt states that throughout her life that if she does not sleep enough or gets very stressed the seizures tend to become more frequent. Pts stated that whenever she has these episodes pt typically gets a strange look on her face, and that her hand will curl up. Pt's states she has also fallen during these episodes. Pt never becomes incotinent. Pt's states that soemtimes she will be confused after an episode and do things such as "pouring creamer on something instead of salt... or she will start tidying up out of nowhere." Pt does not remember her episodes. Pt states she is currently on Divalproex and Levetiracetam. It was reported in pts prior HPI from clinic that she had a fall and hit her head requiring redd. Pt states this was February of 2013. Pt states she had some headaches since this. Seizure History: Age of Onset: Pt states her seizures began in 7th grade when she was around 10 or 11 y/o. Triggers: Pt feels that she has multiple triggers, her main one being getting less than 7-8 hours of sleep. Pt states they can also be triggered by not eating , and by being too hot or too cold. Longest seizure free period: Pt had trouble recalling what her longest seizure free period was, but it appeared maybe 1-2 months. Type: Pt's reports the pt's face will change into a "funny face" and her eyes will looks strange. Pt's states that more recently her hand will curl up. He cannot recall if this is unilat eral or bilateral. Pt's states she will sometimes fall whenever these happen. Duration: states they only last a few seconds to minutes. Frequency: Pt states that recently she has had seizures more frequently, close to once every two weeks. Pt states that she feels this is because she has had more stress with her daughter recently. Auras: No aura was endorsed. Incontinence: Pt does not lose continence. Injury: Pt has fallen before or hit her head in the past with seizures. Per allscripts from Dr. Mejia's visit: The patient speaks only Fijian, and even with an american sign language interpreter was exceedingly difficult to get a clear history from her (and her who does speak Gambian wa s present as well and additional assistance). Apparently, she has been referred to be evaluated for a possible epilepsy surgery. Her first seizure occurred between the age of 10 and 11. She describes on ly a fainting spell. It is unclear what kind of workup was completed, but seemed to at least include electroencephalogram at some point leading to a diagnosis of epilepsy. The patient also states that s he was told by her mother that she was the result of a forceps delivery in that she has a unspecified lesion on the right side of her brain. The patient states that throughout most of her life, she will generally get recurrence of these "fainting episodes" when she overexerts or loses sleep. Her states that her hands will curl up, her eyes will become glassy. If she is standing, she may fall. This will last for a few seconds and then resolve. The patient states that she has only had 4 events within the last year. The is convinced that she has had many more of that and that she is und er reporting. The patient has been maintained recently on the divalproex and levetiracetam as noted, but it is unclear which medications have been tried previously and on what doses. The patient is unab le to tell me the results of any recent imaging study or EEG. The patient had a fall and a accident, hitting her head on February 25 of this year, receiving 5 to 6 redd in her scalp after visiting the emergency room. She has complained of severe headaches ever s sylvester, it appears this may be one of the prime motivators to get her to come in for evaluation. The patient can provide very little additional history. My initial impression from speaking with her is that she was seeking out epilepsy surgery in the hope that she could get off the medications entir dominique. When it was explained to her that this was not terribly likely, she perseverated on the adverse affects that she was suffering from the existing medications, particularly that they made her sleepy. We discussed at length with the fact that during a inpatient evaluation for potential surgery, we would also have the opportunity to rapidly change her over to an alternative medication. Her ap peared to understand this, but it is less than clear that the patient has a good understanding of the plan moving forward. Other Medical History: None, only epilepsy Family & Social History: Patient is from [place]. She is for 21 years and has an 18 yo daughter and 1 yo grandson. The patient worked for many years, but quit when she got . The patien t speaks Fijian. No smoking alcohol use, or drug use. The patient has no family history of seizure. Positive family history of DM, HTN and CVA. Previous investigations: done in [place] AEDs on admission: Keppra 750 mg XR qhs, Depakote 500 mg BID Previous AEDs, reasons for discontinuation: Unable to remember these medications; was on several in [place] in the past. Patient endorses using Dilantin and oxcarabazepine prior. Examination: General: Awake, alert, no apparent distress HEENT: Normocephalic, atraumatic, no nasal discharge, OP clear CV: RRR, no murmurs or rubs Lung: CTAB, no wheezes Abd: Soft, non-tender, non-distended, normal BS MSK: No muscle atrophy, no fasciculations Skin: No rashes or lesions Neuro: Mental Status: Patient is awake alert, fully oriented to person, place, and time Speech/language: Comprehension and fluency are intact. Cranial Nerves: EOMI, visual moran full, pupils 3 mm briskly reactive bilaterally, facial sensation intact, face symmetric, hearing intact, tongue/ uvula/soft palate midline, normal sternocleidomastoid and trapezius muscle strength. No evidence of tongue atrophy or fibrillations Motor: RUE- Deltoid 5/5, Triceps 5/5, Biceps 5/5, Wrist flexion 5/5, Wrist extension 5/5 LUE- Deltoid 5/5, Triceps 5/5, Biceps 5/5, Wrist flexion 5/5, Wrist extension 5 /5 RLE- Iliopsoas 5/5, Knee extension 5/5, Knee flexion 5/5, dorsiflexion 5/5, plantarflexion 5/5 LLE- Iliopsoas 5/5, Knee extension 5/5, Knee flexion 5/5, dorsiflexion 5/5, plantarflexion 5/5 Tone is normal Sensation: intact to light touch Coordination: FTN wnl with no signs of dysmetria. Gait: deferred Reflexes: R Triceps 2+, Biceps 2+, Brachioradialis 2+, Patellar 2+, Ankle 2+ L Triceps 2+, Biceps 2+, Brachioradialis 2+, Patellar 2+, Ankle 2+ Toes down going bilaterally Clinical course: The patient was admitted to the EMU and had several recorded auras and 2 seizure episodes during hospitalization. On 11/15, the patient was admitted to the EMU and was continued on home doses of Keppra XR 750 mg qhs, Depakote 500 mg BID. On 11/16, the patient's evening dose of Depakote was held, and the patient was continued on Keppra. Overnight, the button was pushed for patient feeling something strange in her abdomen and chest, like palpitations/butterflies in her stomach. No clinical seizure activity. Continue d to hold Depakote. Held Keppra on the night of 11/17. On the day of 11/18, both Depakote and Keppra were held. The patient was also sleep deprived without a cocktail. The patient again pushed the button for autonomic aura. She describes the aura as a feeling from her legs up to her stomach; she sometimes feels numbness in her face and body chills, followed by feeling hot. Overnight on 11/18-11/19, there was One push button event for aura. Patient experienced 2 seizures at 04:30 and 06:00. The patient felt the aura of rising in her stomach with palpitations and chills, followed by staring, eyes deviate d to the right, hands fidgeting with her right hand, grabbing her gown, not responding. The patient's left side remains flaccid. The patient does not remember what happened during the seizures, but is a ble to recall what the nurse said just prior and a few minutes following. Post- ictally, the patient is confused, not speaking. Patient's Keppra and Depakote had continued to be held overnight. EEG samuels es were noted. The patient was restarted on Keppra and Depakote on 11/19. She will be discharged with these medications, with plans to follow up with Dr. Mejia in clinic. Summary of VEEG evaluation: INTERICTAL ABNORMALITIES: 1. Continuous slow, right frontotemporal (FT10/F8/T8) INTERICTAL EPILEPTIFORM ABNORMALITIES: 1. 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 2. Nonspecific foci of T2 signal hyperintensity in the bilateral frontal subcortical white matter. In a patient in this age group, this is as likely as not to be a post ischemic or post inflammatory gli osis. It does not have morphologic findings characteristic of a dysplasia. Neuropsychology: n/a Conclusions: The patient has MTS on the right on MRI, and she has interictal sharps in the rightfrontotemporal region. Ictally, the patient has a focal seizure on the right, with left side flaccid, eyes deviated rig ht, and automatisms, all preceded by an autonomic aura. This supports right temporal epilepsy. This case will be discussed during case conference. The patient may be a good surgical candidate given the right sided MRI changes that correspond with the patient's right sided epilepsy. Ariane Bahena MD PGY 1 Neurology Pager #[phone] Teaching Physician Attestation: I was present with the resident (or fellow) during the history and exam. I discussed the case with the resident and agree with the findings and plan as documented in the resident's note. My changes to the note are indicated by adeola. Extracted from: Title: EMU Progress Note Author: Ariane Bahena MD Date: 11/19/14 EMU Daily Progress Note Subjective: 11/15: Admit to EMU. No events. On home AED's: Keppra XR 750 mg qhs, Depakote 500 mg BID. 11/16: No events. Held patient's evening dose of Depakote. Keppra was continued. 11/17: Overnight, the button was pushed for patient feeling something strange in her abdomen and chest, like palpiations. No clinical seizure activity. Continue to hold Depakote. Will hold Keppra tonight and try sleep deprivation. 11/18: Keppra and Depakote both held. Patient sleep deprived. Patient experienced autonomic aura overnight, but no seizure. No seizure cocktail given. 11/19: One push button event for aura. Patient experienced 2 seizures at 04:30 and 06:00. The patient felt the aura of rising in her stomach with palpitations and chills, followed by staring, eyes devia cleve to the right, hands fidgeting, not responding. The patient does not remember what happened during the seizures, but is able to recall what the nurse said just prior and a few minutes following. Nel ent's Keppra and Depakote have continued to be held overnight. Objective: Vitals: Vitals Tmp(F) Tmp(C) Ttype BP MAP Pulse RR SpO2 FIO2 ETCO2 11/19 08:47 98.1 36.72 oral 133/82 --- 72 16 --- --- --- 11/18 20:00 97.0 36.11 oral 138/88 --- 78 17 97 --- --- 11/18 09:44 97.0 36.11 oral 114/72 --- 52 18 --- --- --- 11/17 19:45 98.5 36.94 oral 107/74 85 77 18 98 --- --- 24 Hr Tmax: 98.1F (36.72c) at 11/19 08:47 24 Hr Tmin: 97.0F (36.11c) at 11/18 20:00 36 Hr Tmax: 98.1F (36.72c) at 11/19 08:47 36 Hr Tmin: 97.0F (36.11c) at 11/18 20:00 Vital Signs are the last 5 in the past 48 hours. Weights are the last 5 in 60 days, plus initial. Physical Exam: AAO*3 Speech: fluent, comprehension intact, repeatition and naming intact evp and chief operating officer: 2-12 intact Motor: Strength is 5/5 throughout Sensory: Intact sensation to light touch and pin prick throughout Cerebellar signs: Intact FTN, Rombergs negative Gait: normal Labs: BMP, CBC wnl Valproic acid level 121 H Medications: Scheduled Meds (3): 11/16/14 (Suspended) divalproex sodium (Depakote 500 mg oral enteric coated tablet) 500 mg PO Q12H 11/17/14 (Suspended) non-formulary (Keppra XR 750mg tablet) 750 mg PO Bedtime 11/15/14 sodium chloride (Saline Flush 0.9%) 10 ml IVP Q12H Unscheduled Meds: None PRN Meds (1): 11/15/14 sodium chloride (Saline Flush 0.9%) 10 ml IVP PRN One Time Meds: None Continuous Infusions: None Imaging: MRI brain without contrast 11/15: 1. 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 2. Nonspecific foci of T2 signal hyperintensity in the bilateral frontal subcortical white matter. In a patient in this age group, this is as likely as not to be a post ischemic or post inflammatory gli osis. It does not have morphologic findings characteristic of a dysplasia. Assessment: Patient is a 49 yo right handed female who presents for phase I evlauation. Patient noted to have right sided MTS on imaging, and EEG has shown abnormal sharps on the right. Plan: - Continuous video EEG monitoring - Will restart Keppra and Depakote today - Plan for discharge tomorrow # Disposition: Once work up is complete, will discharge home. Patient will follow up with Dr. Mejia on discharge. Ariane Bahena MD PGY 1 Neurology Resident Pager # [phone] MSO # [id number] Teaching Physician Attestation: I was present with the resident (or fellow) during the history and exam. I discussed the case with the resident and agree with the findings and plan as documented in the resident's note. My changes to the note are indicated by adeola. Extracted from: Title: EMU Author: Yony Orourke DO Date: 11/15/14 EMU History and Physical Reason for admission: Phase I Diagnostic Evaluation HPI: This is a 49-year-old right-handed female referred by Dr. Mejia for evaluation of a seizure disorder. Pt speaks primarily Fijian, but also speaks some Gambian. Pts was in the room and helped translate. Pt states she began having seizures in the 7th grade where she would simply "faint." Pt was not sure about what workup was done as a child and what medications were tried, but pt was ultimately given the diagnosis of epilepsy. Pt states that throughout her life that if she does not sleep enough or gets very stressed the seizures tend to become more frequent. Pts stated that whenever she has these episodes pt typically gets a strange look on her face, and that her hand will curl up. Pt's states she has also fallen during these episodes. Pt never becomes incotinent. Pt's states that soemtimes she will be confused after an episode and do things such as "pouring creamer on something instead of salt... or she will start tidying up out of nowhere." Pt does not remember her episodes. Pt states she is currently on Divalproex and Levetiracetam. It was reported in pts prior HPI from clinic that she had a fall and hit her head requiring redd. Pt states this was February of 2013. Pt states she had some headaches since this. Seizure History: Age of Onset: Pt states her seizures began in 7th grade when she was around 10 or 11 y/o. Triggers: Pt feels that she has multiple triggers, her main one being getting less than 7-8 hours of sleep. Pt states they can also be triggered by not eating , and by being too hot or too cold. Longest seizure free period: Pt had trouble recalling what her longest seizure free period was, but it appeared maybe 1-2 months. Type: Pt's reports the pt's face will change into a "funny face" and her eyes will looks strange. Pt's states that more recently her hand will curl up. He cannot recall if this is unilat eral or bilateral. Pt's states she will sometimes fall whenever these happen. Duration: states they only last a few seconds to minutes. Frequency: Pt states that recently she has had seizures more frequently, close to once every two weeks. Pt states that she feels this is because she has had more stress with her daughter recently. Auras: No aura was endorsed. Incontinence: Pt does not lose continence. Injury: Pt has fallen before or hit her head in the past with seizures. Per allscripts from Dr. Mejia's visit: The patient speaks only Fijian, and even with an american sign language interpreter was exceedingly difficult to get a clear history from her (and her who does speak Gambian wa s present as well and additional assistance). Apparently, she has been referred to be evaluated for a possible epilepsy surgery. Her first seizure occurred between the age of 10 and 11. She describes on ly a fainting spell. It is unclear what kind of workup was completed, but seemed to at least include electroencephalogram at some point leading to a diagnosis of epilepsy. The patient also states that s he was told by her mother that she was the result of a forceps delivery in that she has a unspecified lesion on the right side of her brain. The patient states that throughout most of her life, she will generally get recurrence of these "fainting episodes" when she overexerts or loses sleep. Her states that her hands will curl up, her eyes will become glassy. If she is standing, she may fall. This will last for a few seconds and then resolve. The patient states that she has only had 4 events within the last year. The is convinced that she has had many more of that and that she is und er reporting. The patient has been maintained recently on the divalproex and levetiracetam as noted, but it is unclear which medications have been tried previously and on what doses. The patient is unab le to tell me the results of any recent imaging study or EEG. The patient had a fall and a accident, hitting her head on February 25 of this year, receiving 5 to 6 redd in her scalp after visiting the emergency room. She has complained of severe headaches ever s sylvester, it appears this may be one of the prime motivators to get her to come in for evaluation. The patient can provide very little additional history. My initial impression from speaking with her is that she was seeking out epilepsy surgery in the hope that she could get off the medications entir dominique. When it was explained to her that this was not terribly likely, she perseverated on the adverse affects that she was suffering from the existing medications, particularly that they made her sleepy. We discussed at length with the fact that during a inpatient evaluation for potential surgery, we would also have the opportunity to rapidly change her over to an alternative medication. Her ap peared to understand this, but it is less than clear that the patient has a good understanding of the plan moving forward. We were unsuccessful in Review of Systems: Constitutional: recent weight gain. Cardiovascular, respiratory, sleep, gastrointestinal, genitourinary, musculoskeletal, skin, endocrine and hematologic review of systems are normal. Eyes: red eyesanddryness of the eyes. ENT: sore throat. insomnia Neurological: convulsions,dizziness,faintingandheadache. Psychiatric: emotional problems. Current AEDS/Meds: Divalproex 500 BID Levetiracetam 750 QHS Other Medications: Pt denies other medications. Pt states she does sometimes take OTC Tylenol for headaches. Previous AED s (started/stopped/reason for D/C): Pt states she has been on medication since she was 11, but most of this treatment was in [place] and she cannot remember the names. None of them have ever been able to control her seizures though. 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 Pt has been for 21 years to her current . Pt denies smoking, EtOH or recreational drugs. Pt is primarily greek speaking. Allergies: nkda Physical Exam: Vitals Tmp(F) Pulse BP RR SpO2 FIO2 11/15 14:36 97.3 --- 113/69 -- 100 --- 24 Hr Tmax: 97.3F (36.28c) at 11/15 14:36 Vital Signs are the last 5 in the past 48 hours. APPEARANCE - Active, alert, well developed, well nourished. HEAD - Normocephalic and atraumatic. EARS - Canals clear. TMs pearly bermudez bilaterally EYES - PERRL, fundi benign, aligned NOSE - [place] nasal turbinates, septum is midline. No drainage or deformities. PHARYNX - Mouth pink, mucous membranes moist. No tonsillar enlargement, exudate , or erythema. Teeth-normal for age, good dentition. NECK - Supple, thyroid nonpalpable, full ROM, no significant adenopathy. LUNGS - Clear to auscultation CV - RRR, no murmur, equal pulses bilaterally. ABDOMEN - Soft, nontender, nondistended with normoactive BS. No hepatosplenomegaly, no masses, no hernia. SPINE - Straight, no defects, no scoliosis. EXTREMITIES- Full ROM including neck and spine, normal gait. NEURO: overall appears encephalopathic, II-XII intact, DTR s 2/2, Good tone, good strength, Normal station, negative rhomberg, No ataxia, plantar reflexes downgoing. SKIN: Clear, no rashes. Pt has a bruise on her L mormon area. Diagnostic Tests: MRI brain wo contrast epilepsy protcol: pend Assessment and Plan: 49 year old female with history of epilepsy, with recurrent events presents for phase 1 evaluation. Per reports, pt has a limited ability to report on seizure recurrence, and a desire for possible surgical intervention. -admit to Adult EMU -continuous vEEG monitoring -MRI epilepsy protocol -continue anticonvulsants; will plan to taper and discontinue exisiting meds and switch to alternative per Dr. Mejia. -check routine labs and anticonvulsant levels: marlys costa -f/u w/ once EMU evaluation completed Yony Orourke DO Neurology PGY2 Pager [phone] [id number] Teaching Physician Attestation: I was present with the resident (or fellow) during the history and exam. I discussed the case with the resident and agree with the findings and plan as documented in the resident's note. My changes to the note are indicated by adeola.
--- OUTSIDE RECORDS SUMMARY | 2018-08-08 12:16 | XMS REPORT | Summary of Care ---
:1965 Author Encounter [facility] Ashlee(ROSSY) [id number] Date(s): 01/19/15 - 01/21/[address] Professional Services provided by [facility] [place] [address]- Final: Discharge Disposition: Home Physician Attending: Jean-Pierre Santoyo MD Physician Admitting: Jean-Pierre Santoyo MD Physician_Referring: Taqueria Mejia MD Vital Signs Most recent to oldest 1 2 3 [Reference Range]: Height 162.56 cm 162.56 cm (01/19/15 6:57 AM) (01/07/15 3:38 PM) Temperature Oral [96.4-99.1 98.1 DegF 97 DegF 98 DegF DegF] (01/21/15 8:00 AM) (01/21/15 4:00 AM) (01/21/15 12:00 AM) Blood Pressure [90-140/60-90 102/69 mmHg 97/70 mmHg 1 79/56 mmHg mmHg] (01/21/15 10:09 AM) (01/21/15 10:00 AM) *LOW* (01/21/15 9:50 AM) Respiratory Rate [14-20 BRMIN] 17 BRMIN 18 BRMIN 18 BRMIN (01/21/15 10:09 AM) (01/21/15 10:00 AM) (01/21/15 9:50 AM) Peripheral Pulse Rate [60-100 69 bpm 67 bpm 65 bpm 2 bpm] (01/21/15 10:09 AM) (01/21/15 10:00 AM) (01/21/15 9:50 AM) Weight 70 kg 70 kg (01/19/15 6:57 AM) (01/07/15 3:38 PM) Body Mass Index 26.49 m2 26.49 m2 (01/19/15 6:57 AM) (01/07/15 3:38 PM) 1Result Comment: [place] juice was given and IV bolus was [id number] Comment : Dr. Fan was contacted. Dr. Fan ordered to give patient orange juice and 1000ml IV bolus Problem List Condition Effective Dates Status Health Status Informant Seizures(Confirmed) Resolved Allergies, Adverse Reactions, Alerts Substance Reaction Severity Status NKDA Active Medications acetaminophen 650 mg, 2 tab, Route: PO, Drug form: TAB, Q6H, Dosing Weight 70, kg, PRN For Temp > 100.4 F, Start date: 01/19/15 6:32:00, Duration: 30 day, Stop date: 02/18 6:31:00 Notes: Do not exceed 4 gm/day. (Same as: Tylenol) Start Date: 01/19/15 Stop Date: 01/21/15 Status: DiscontinuedAncef 2 gm, Route: IVPB, ONCE, Dosing Weight 70, kg, Start date: 01/19/15 8:40:00, Duration: 1 doses or times, Stop date: 01/19/15 8:40:00 Start Date: 01/19/15 Stop Date: 01/19/15 Status: CompletedceFAZolin + Dextrose 5% in Water IV 50 mL 2 gm, Route: IVPB, Drug form: INJ, Q8H, Dosing Weight 70, kg, Priority: Routine , Start date: 01/19/15 7:00:00, Stop date: 01/20/15 9:00:00 Notes: (Same As: Ancef Kefzol)Cefazolin FOR IV SET ONLY MEDICATION WASTE Product Size:1000 mgProduct Wasted: ___ mg Start Date: 01/19/15 Stop Date: 01/20/15 Status: CompletedCitrate of Magnesia 300 ml, Route: PO, Drug Form: LIQ, Dosing Weight 70, kg, ONCE, NOW, Start date: 01/21/15 8:11:00, Stop date: 01/21/15 8:11:00 Notes: (Same as: Citrate of Magnesia) Start Date: 01/21/15 Stop Date: 01/21/15 Status: CompletedDepakote 500 mg oral enteric coated tablet 500 mg, 1 tab, Route: PO, Drug form: ECTAB, Q12H, Dosing Weight 70, kg, Start date: 01/19/15 21:00:00, Duration: 30 day, Stop date: 02/18/15 9:00:00, Delayed Release tablet Special Instructions: Delayed Release tablet Notes: (Same as: Depakote Delayed Release) Do not confuse with the extended- release tablet. Delayed absorption enteric coated tablet. Do not crush Start Date: 01/19/15 Stop Date: 01/21/15 Status: Discontinueddexamethasone 4 mg, 1 mL, Route: IVP, Drug form: INJ, Q6H, Dosing Weight 70, kg, Start date: 01/19/15 12:00:00, Duration: 24 hr, Stop date: 01/20/15 6:00:00 Notes: Concentration: 4mg/ml Start Date: 01/19/15 Stop Date: 01/20/15 Status: CompletedDextrose 50% Syringe 6.25 gm, 12.5 mL, Route: IVP, Drug Form: INJ, Dosing Weight 70, kg, PRN, PRN Abnormal Lab Result, Start date: 01/19/15 6:36:00, Duration: 30 day, Stop date: 02/18/15 6:35:00 Start Date: 01/19/15 Stop Date: 01/21/15 Status: DiscontinuedDextrose 50% Syringe 12.5 gm, 25 mL, Route: IVP, Drug Form: INJ, Dosing Weight 70, kg, PRN, PRN Abnormal Lab Result, Start date: 01/19/15 6:36:00, Duration: 30 day, Stop date: 02/18/15 6:35:00 Start Date: 01/19/15 Stop Date: 01/21/15 Status: DiscontinuedDextrose 50% Syringe 25 gm, 50 mL, Route: IVP, Drug Form: INJ, Dosing Weight 70, kg, PRN, PRN Abnormal Lab Result, Start date: 01/19/15 6:36:00, Duration: 30 day, Stop date: 02/18/15 6:35:00 Start Date: 01/19/15 Stop Date: 01/21/15 Status: Discontinueddocusate 100 mg, 1 cap, Route: PO, Drug form: CAP, Q12H, Dosing Weight 70, kg, Start date : 01/19/15 9:00:00, Duration: 30 day, Stop date: 02/17/15 21:00:00 Notes: (Same as: Colace) (Do Not Crush) Start Date: 01/19/15 Stop Date: 01/21/15 Status: Discontinuedfamotidine 20 mg, 2 mL, Route: IVP, Drug form: INJ, Q12H, Dosing Weight 70, kg, Start date : 01/19/15 9:00:00, Duration: 24 hr, Stop date: 01/19/15 21:00:00 Notes: (Same as: Pepcid)Can be dilute in 5-10cc NS IVP: Slow IV push over at least 2 minutes. Start Date: 01/19/15 Stop Date: 01/19/15 Status: Completedflumazenil 0.2 mg, Route: IVP, PRN, Dosing Weight 70, kg, PRN Benzodiazepine Reversal, Initial dose, Start date: 01/19/15 13:19:00, Duration: 30 day, Stop date: 13:18:00 Start Date: 01/19/15 Stop Date: 01/19/15 Status: Discontinuedheparin 5000 units/mL injectable solution 5,000 unit, 1 mL, Route: SUB-Q, Drug form: INJ, Q8H, Dosing Weight 70, kg, Start date: 01/21/15 0:00:00, Duration: 30 day, Stop date: 02/19/15 16:00:00 Notes: porcine heparin Start Date: 01/21/15 Stop Date: 01/21/15 Status: DiscontinuedhydrALAZINE 10 mg, 0.5 mL, Route: IVP, Drug form: INJ, Q2H, Dosing Weight 70, kg, PRN Hypertension, Start date: 01/19/15 6:32:00, Duration: 30 day, Stop date: 6:31:00 Notes: (Same as: Apresoline)Push over 5 minutes Start Date: 01/19/15 Stop Date: 01/21/15 Status: Discontinuedhydromorphone 0.5 mg, Route: IVP, Q5Min, Dosing Weight 70, kg, PRN Pain Score 7-10, Start date : 01/19/15 13:19:00,Duration: 4 doses or times, Stop date: Limited # of times Start Date: 01/19/15 Stop Date: 01/19/15 Status: Discontinuedinsulin regular 100 units/mL human recombinant 3 unit, 0.03 mL, Route: SUB-Q, Drug form: SOLN, PRN, Dosing Weight 70, kg, PRN Abnormal Lab Result, Start date: 01/19/15 6:36:00, Duration: 30 day, Stop date: 02/18/15 6:35:00 Notes: (Same as: Humulin R) Roll in palms of hands gently; Do not shake vigorously. "single patientuse only"(Restricted to patients requiring a dose > 60 units) Stable for 28 days at room temperatureExpires in days from ___ Date Start Date: 01/19/15 Stop Date: 01/21/15 Status: Discontinuedinsulin regular 100 units/mL human recombinant 5 unit, 0.05 mL, Route: SUB-Q, Drug form: SOLN, PRN, Dosing Weight 70, kg, PRN Abnormal Lab Result, Start date: 01/19/15 6:36:00, Duration: 30 day, Stop date: 02/18/15 6:35:00 Notes: (Same as: Humulin R) Roll in palms of hands gently; Do not shake vigorously. "single patientuse only"(Restricted to patients requiring a dose > 60 units) Stable for 28 days at room temperatureExpires in days from ___ Date Start Date: 01/19/15 Stop Date: 01/21/15 Status: Discontinuedinsulin regular 100 units/mL human recombinant 7 unit, 0.07 mL, Route: SUB-Q, Drug form: SOLN, PRN, Dosing Weight 70, kg, PRN Abnormal Lab Result, Start date: 01/19/15 6:36:00, Duration: 30 day, Stop date: 02/18/15 6:35:00 Notes: (Same as: Humulin R) Roll in palms of hands gently; Do not shake vigorously. "single patientuse only"(Restricted to patients requiring a dose > 60 units) Stable for 28 days at room temperatureExpires in days from ___ Date Start Date: 01/19/15 Stop Date: 01/21/15 Status: DiscontinuedKeppra + Sodium Chloride 0.9% IV 100 mL 1,000 mg, Route: IVPB, ONCE, Dosing Weight 70, kg, Loading Dose, Start date: 13:04:00, Duration: 1 doses or times, Stop date: 01/19/15 13:04:00 Notes: Same as KeppraMix with 100 mL NS, LR or D5W MEDICATION WASTE Product Size: 500 mgProduct Wasted: ___ mg Start Date: 01/19/15 Stop Date: 01/19/15 Status: CompletedlevETIRAcetam 750 mg, 3 tab, Route: PO, Drug form: TAB, Q12H, Dosing Weight 70, kg, Start date : 01/19/15 21:00:00,Duration: 30 day, Stop date: 02/18/15 9:00:00 Notes: (Same as:Keppra) Start Date: 01/19/15 Stop Date: 01/21/15 Status: Discontinuedmagnesium citrate 300 ml, Route: PO, Drug Form: LIQ, Dosing Weight 70, kg, ONCE, NOW, Start date: 01/21/15 5:58:00, Stop date: 01/21/15 5:58:00 Notes: (Same as: Citrate of Magnesia) Start Date: 01/21/15 Stop Date: 01/21/15 Status: DeletedMilk of Magnesia 8% oral suspension 2.4 gm=30 mL, PO, Daily, PRN Constipation, X 10 day, # 300 mL, 0 Refill(s) Start Date: 01/21/15 Stop Date: 01/31/15 Status: Orderedmorphine Sulfate 2 mg, 1 mL, Route: IVP, Drug form: INJ, Q2H, Dosing Weight 70, kg, PRN Pain Score 7-10, Start date: 01/19/15 6:32:00, Duration: 30 day, Stop date: 02/18/15 6:31:00 Notes: (Same as:MORPhine Sulfate) Start Date: 01/19/15 Stop Date: 01/21/15 Status: Discontinuednaloxone 0.04 mg, Route: IVP, Q2MIN, Dosing Weight 70, kg, PRN Narcotic Reversal, Start date: 01/19/15 13:19:00, Duration: 8 doses or times, Stop date: Limited # of times Start Date: 01/19/15 Stop Date: 01/19/15 Status: DiscontinuedNorco 5/325 oral tablet 1 tab, Route: PO, Drug Form: TAB, Dosing Weight 70, kg, Q4H, PRN Pain Score 1-3 , Start date: 01/19/15 6:32:00, Duration: 30 day, Stop date: 02/18/15 6:31:00 Notes: (Same as: Umpire 325/5) Do not exceed 4gm/day of acetaminophen. Start Date: 01/19/15 Stop Date: 01/21/15 Status: DiscontinuedNS (Bolus) IV 1,000 mL, 1,000 ml/hr, Infuse Over: 1 hr, Route: IV, 1,000, Drug form: INJ, ONCE , Priority: STAT, Dosing Weight 70 kg, Start date: 01/21/15 10:15:00, Duration: 1 doses or times, Stop date: 01/21/15 10:15:00 Start Date: 01/21/15 Stop Date: 01/21/15 Status: CompletedNS + KCL 20mEq/L 1000ml (Premix) 1,000 mL 1,000 mL, Rate: 80 ml/hr, Infuse over: 12.5 hr, Route: IV, Dosing Weight 70 kg, Total Volume: 1,000,Heplock IV when PO > 500ml, Start date: 01/19/15 6:34:00, Duration: 30 day, Stop date: 02/18/15 6:33:00 Notes: PREMIX IV - Do Not Alter Start Date: 01/19/15 Stop Date: 01/21/15 Status: Discontinuedondansetron 4 mg, Route: IVP, ONCE, Dosing Weight 70, kg, PRN Nausea & Vomiting, Start date: 01/19/15 13:19:00 Start Date: 01/19/15 Stop Date: 01/19/15 Status: Discontinuedondansetron 4 mg, 2 mL, Route: IVP, Drug form: INJ, Q6H, Dosing Weight 70, kg, PRN Nausea & amp; Vomiting, Start date: 01/19/15 6:34:00, Duration: 30 day, Stop date: 6:33:00 Notes: (Same as: Stefanie) MEDICATION WASTE Product Size: 4 mgProduct Wasted: ___ mg Start Date: 01/19/15 Stop Date: 01/21/15 Status: Discontinuedondansetron 4 mg oral tablet, disintegrating 4 mg, 1 tab, Route: PO, Drug form: TABDIS, Q6H, Dosing Weight 70, kg, PRN Nausea & Vomiting, Start date: 01/19/15 6:34:00, Duration: 30 day, Stop date : 02/18/15 6:33:00 Notes: (Same as: Stefanie ODT) Start Date: 01/19/15 Stop Date: 01/21/15 Status: Discontinuedsenna 8.6 mg oral tablet 8.6 mg, 1 tab, Route: PO, Drug Form: TAB, Dosing Weight 70, kg, Q12H, Start date : 01/19/15 9:00:00, Duration: 30 day, Stop date: 02/17/15 21:00:00 Notes: (Same as: Cristhian) Start Date: 01/19/15 Stop Date: 01/21/15 Status: DiscontinuedTylenol with Codeine #3 oral tablet 1 tab, PO, Q4H, PRN Pain, X 10 day, # 60 tab, 0 Refill(s) Start Date: 01/21/15 Stop Date: 01/31/15 Status: Orderedvancomycin 1 gm, Route: IVPB, Drug form: INJ, [id number], Dosing Weight 70, kg, Time Critical Medication, Priority: Routine, Start date: 01/19/15 7:00:00, Duration: 2 doses or times, Stop date: 01/19/15 19:00:00 Notes: TIME CRITICAL MEDICATION(Same As: Vancocin)Infusion rate< 1000 mg: infuse over 1 [id number] - 1500 mg: infuse over 1.5 [id number] - 2000 mg: infuse over 2 hours> 2001 mg: infuse over 2.5 hours MEDICATION WASTE Product Size: 1000 mgProduct Wasted: ___ mg Start Date: 01/19/15 Stop Date: 01/19/15 Status: Completed Results BLOOD BANK RESULTS Most recent to oldest [Reference Range]: 1 2 ABO/Rh O POS *Unknown* (01/19/15 7:16 AM) Antibody Scrn Negative (01/19/15 7:16 AM) RBC product Product available (01/19/15 6:26 AM) ELECTROLYTES Most recent to oldest [Reference Range]: 1 2 Sodium Lvl [135-145 mEq/L] 141 mEq/L 141 mEq/L (01/20/15 1:02 AM) (01/07/15 3:30 PM) Potassium Lvl [3.5-5.1 mEq/L] 4.1 mEq/L 4.4 mEq/L (01/20/15 1:02 AM) (01/07/15 3:30 PM) Chloride Lvl [95-109 mEq/L] 109 mEq/L 102 mEq/L (01/20/15 1:02 AM) (01/07/15 3:30 PM) CO2 [24-32 mEq/L] 22 mEq/L 31 mEq/L *LOW* (01/07/15 3:30 PM) (01/20/15 1:02 AM) AGAP [10.0-20.0 mEq/L] 14.1 mEq/L 12.4 mEq/L (01/20/15 1:02 AM) (01/07/15 3:30 PM) CHEM PANEL Most recent to oldest [Reference Range]: 1 2 Creatinine Lvl [0.5-1.4 mg/dL] 0.9 mg/dL 0.6 mg/dL (01/20/15 1:02 AM) (01/07/15 3:30 PM) eGFR 74 mL/min/1.73m2 1 106 mL/min/1.73m2 2 *NA* *NA* (01/20/15 1:02 AM) (01/07/15 3:30 PM) BUN [7-22 mg/dL] 12 mg/dL 14 mg/dL (01/20/15 1:02 AM) (01/07/15 3:30 PM) B/C Ratio [6-25] 23 (01/07/15 3:30 PM) Glucose Lvl [70-99 mg/dL] 155 mg/dL 3 98 mg/dL 4 *HI* (01/07/15 3:30 PM) (01/20/15 1:02 AM) Total Protein [6.4-8.4 g/dL] 7.6 g/dL (01/07/15 3:30 PM) Albumin Lvl [3.5-5.0 g/dL] 4.3 g/dL (01/07/15 3:30 PM) Globulin [2.0-4.0 g/dL] 3.3 g/dL (01/07/15 3:30 PM) A/G Ratio [0.7-1.6] 1.3 (01/07/15 3:30 PM) Calcium Lvl [8.5-10.5 mg/dL] 9.1 mg/dL 9.6 mg/dL (01/20/15 1:02 AM) (01/07/15 3:30 PM) Magnesium Lvl [1.8-2.4 mg/dL] 2.2 mg/dL (01/07/15 3:30 PM) ALT [0-65 unit/L] 22 unit/L (01/07/15 3:30 PM) AST [0-37 unit/L] 11 unit/L (01/07/15 3:30 PM) Alk Phos [39-136 unit/L] 91 unit/L (01/07/15 3:30 PM) Bili Total [0.2-1.3 mg/dL] 0.5 mg/dL (01/07/15 3:30 PM) 1Result Comment: The eGFR is calculated using [...] eGFR should be multiplied by the estimated BMI.2Result Comment: The eGFR is calculated using the CKD-EPI formula. In most young, healthy individualsthe eGFR will be >90 mL/ min/1.73m2. The [...] eGFR should be multiplied by the estimated BMI.3Interpretive Data: Adult reference range values reflect the clinical guidelines of the [employer].4Interpretive Data: Adult reference range values reflect the clinical guidelines of the [employer].IMMUNOLOGY Most recent to oldest [Reference Range]: 1 2 Hep C Ab Negative *NA* (01/19/15 12:01 PM) HEMATOLOGY Most recent to oldest [Reference Range]: 1 2 WBC [3.7-10.4 K/CMM] 8.5 K/CMM 4.7 K/CMM (01/20/15 1:02 AM) (01/07/15 3:30 PM) RBC [4.20-5.40 M/CMM] 3.35 M/CMM 4.51 M/CMM *LOW* (01/07/15 3:30 PM) (01/20/15 1:02 AM) Hgb [12.0-16.0 g/dL] 10.6 g/dL 13.7 g/dL *LOW* (01/07/15 3:30 PM) (01/20/15 1:02 AM) Hct [36.0-48.0 %] 30.9 % 42.1 % *LOW* (01/07/15 3:30 PM) (01/20/15 1:02 AM) MCV [80.0-98.0 fL] 92.2 fL 93.3 fL (01/20/15 1:02 AM) (01/07/15 3:30 PM) MCH [27.0-31.0 pg] 31.5 pg 30.4 pg *HI* (01/07/15 3:30 PM) (01/20/15 1:02 AM) MCHC [32.0-36.0 g/dL] 34.2 g/dL 32.5 g/dL (01/20/15 1:02 AM) (01/07/15 3:30 PM) RDW [11.5-14.5 %] 12.9 % 13.4 % (01/20/15 1:02 AM) (01/07/15 3:30 PM) Platelet [133-450 K/CMM] 165 K/CMM 221 K/CMM (01/20/15 1:02 AM) (01/07/15 3:30 PM) MPV [7.4-10.4 fL] 9.9 fL 9.8 fL (01/20/15 1:02 AM) (01/07/15 3:30 PM) Segs [45.0-75.0 %] 90.3 % 42.7 % *HI* *LOW* (01/20/15 1:02 AM) (01/07/15 3:30 PM) Lymphocytes [20.0-40.0 %] 7.8 % 49.5 % *LOW* *HI* (01/20/15 1:02 AM) (01/07/15 3:30 PM) Monocytes [2.0-12.0 %] 1.8 % 6.4 % *LOW* (01/07/15 3:30 PM) (01/20/15 1:02 AM) Eosinophils [0.0-4.0 %] 1.2 % (01/07/15 3:30 PM) Basophils [0.0-1.0 %] 0.1 % 0.2 % (01/20/15 1:02 AM) (01/07/15 3:30 PM) Segs-Bands # [1.5-8.1 K/CMM] 7.6 K/CMM 2.0 K/CMM (01/20/15 1:02 AM) (01/07/15 3:30 PM) Lymphocytes # [1.0-5.5 K/CMM] 0.7 K/CMM 2.3 K/CMM *LOW* (01/07/15 3:30 PM) (01/20/15 1:02 AM) Monocytes # [0.0-0.8 K/CMM] 0.2 K/CMM 0.3 K/CMM (01/20/15 1:02 AM) (01/07/15 3:30 PM) Eosinophils # [0.0-0.5 K/CMM] 0.1 K/CMM (01/07/15 3:30 PM) PT [12.0-14.7 seconds] 14.3 seconds 12.5 seconds (01/20/15 1:02 AM) (01/07/15 3:30 PM) INR [0.85-1.17] 1.10 5 0.94 6 (01/20/15 1:02 AM) (01/07/15 3:30 PM) PTT [22.9-35.8 seconds] 27.4 seconds 7 30.3 seconds 8 (01/20/15 1:02 AM) (01/07/15 3:30 PM) 5Interpretive Data: RECOMMENDED RANGES FOR PROTIME INR: 2.0-3.0 for most medical and surgical thromboembolic states. 2.5-3.5 for artificial heart valves and recurrent embolism. INR SHOULD BE USED ONLY FOR PATIENTS ON STABLE ANTICOAGULANT THERAPY.6Interpretive Data: RECOMMENDED RANGES FOR PROTIME INR: 2.0-3.0 for most medical and surgical thromboembolic states. 2.5-3.5 for artificial heart valves and recurrent embolism. INR SHOULD BE USED ONLY FOR PATIENTS ON STABLE ANTICOAGULANT THERAPY.7Interpretive Data: Heparin Therapeutic Range: 57 - 92 [id number] Data: Heparin Therapeutic Range: 57 - 92 Seconds Immunizations No data available for this section Procedures No data available for this section Social History Social History Type Response Alcohol Never Smoking Status Never smoker; Exposure to Tobacco Smoke None; Cigarette Smoking Last 365 Days No; Reg Smoking Cessation Counseling Yes Assessment and Plan No data available for this section
--- NOTE | 2018-08-08 14:20 | RAD REPORT ---
EXAM DESCRIPTION: CT - Head Brain Wo Cont - 08/08/2018 2:03 pm CLINICAL HISTORY: Seizure history, headache, sinus congestion, history of prior brain surgery COMPARISON: CT study February 2018, prior to historically stated brain surgery TECHNIQUE: Axial 5 mm thick images of the head were obtained without IV contrast. All CT scans are performed using dose optimization technique as appropriate and may include automated exposure control or mA/KV adjustment according to patient size. FINDINGS: There is a 4 centimeter area of encephalomalacia or CSF collecting in the right middle aircraft load controller nial fossa. There are overlying postsurgical changes to the skull. This matches the patient provided history. Surgery occurred after the comparison study. No intracranial hemorrhage or mass. No acute co rtical based infarction. Physiologic calcifications are present. Ventricles are normal. Mastoid air cells are clear. Extensive mucosal thickening with air-fluid level in the right side sphe noid sinus. Partially imaged right maxillary sinus is opacified. There is patchy opacification of the right side ethmoid air cells. No acute bony findings. IMPRESSION: No acute intracranial finding. Patient has postsurgical change to the right temporal lob e in the middle cranial fossa and postsurgical changes to the overlying skull. Acute sinusitis findings involving the maxillary and sphenoid sinuses.
[2018-08-08 15:07] LABS: ALT/SGPT 30 U/L (12-78); AST/SGOT 25 U/L (15-37); Albumin 3.4 g/dL (3.4-5.0); Alkaline Phosphatase 116 U/L (45-117); BUN Blood Urea Nitrogen 14 mg/dL (7-18); Bicarbonate 30 mmol/L (21-32); Bilirubin Total 0.2 mg/dL (0.2-1.0); Glucose Level 96 mg/dL (74-106); Protein, Total 7.5 g/dL (6.4-8.2); Sodium Level 142 mmol/L (136-145)
--- NOTE | 2018-08-08 17:12 | ER ---
Nurse's Notes [facility] Name: Brittany Schulte Age: 53 yrs Sex: Female : 1965 Arrival Date: 08/08/2018 Time: 12:17 Bed 13 Private MD: Rishi Alfaro H Diagnosis: Paresthesia of skin;Headache;Abdominal and pelvic pain Presentation: 08/08 12:23 Presenting complaint: Body aches, headache, sinus congestion, and nausea x 5 days. hb Transition of care: patient was not received from another setting of care. Onset of symptoms is unknown. Risk Assessment: Do you want to hurt yourself or someone else?. Initial Sepsis Screen: Does the patient meet any 2 criteria? No. Patient's initial sepsis screen is negative. Does the patient have a suspected source of infection? No. Patient's initial sepsis screen is negative. Care prior to arrival: None. 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 - Social history:: Smoking status: Patient/guardian denies using tobacco. - Ebola Screening: : No symptoms or risks identified at this time. Screenin:27 Abuse screen: Denies threats or abuse. Tuberculosis screening: No symptoms or risk rb1 factors identified. 13:27 Fall Risk None identified. rb1 13:27 Nutritional screening: No deficits noted. rb1 Assessment: 13:27 General: Appears in no apparent distress. Behavior is calm, cooperative. Pain: rb1 Complains of pain in generalized bodyaches, headache. Neuro: Level of Consciousness is awake, alert, obeys commands, Oriented to person, place, time, situation. Cardiovascular: Capillary refill < 3 seconds is brisk in bilateral fingers. Respiratory: Airway is patent Respiratory effort is even, unlabored, Respiratory pattern is regular, symmetrical. GI: Reports nausea. : No signs and/or symptoms were reported regarding the genitourinary system. EENT: Reports nasal congestion. Derm: Skin is dry, Skin is normal, Skin temperature is warm. 13:27 Pain: Pain currently is 7 out of 10 on a pain scale. rb1 14:02 Reassessment: Pt. went to CT. rb1 14:27 Reassessment: Patient appears in no apparent distress at this time. No changes from rb1 previously documented assessment. 15:25 Reassessment: Patient appears in no apparent distress at this time. Patient and/or rb1 family updated on plan of care and expected duration. Pain level reassessed. Patient is alert, oriented x 3, equal unlabored respirations, skin warm/dry/pink. at bedside. 16:25 Reassessment: Patient appears in no apparent distress at this time. No changes from rb1 previously documented assessment. 17:20 Reassessment: Patient appears in no apparent distress at this time. Patient and/or rb1 family updated on plan of care and expected duration. Pain level reassessed. Patient is alert, oriented x 3, equal unlabored respirations, skin warm/dry/pink. Vital Signs: 12:24 BP 159 / 81; Pulse 76; Resp 16; Temp 98.1; Pulse Ox 100% on R/A; Pain 5/10; hb 14:23 BP 128 / 76; Pulse 66; Resp 17; Pulse Ox 100% on R/A; rb1 15:23 BP 119 / 83; Pulse 68; Resp 18; Pulse Ox 100% ; rb1 16:20 BP 127 / 78; Pulse 66; Resp 17; Pulse Ox 100% ; Pain 3/10; rb1 17:20 BP 127 / 76; Pulse 70; Resp 17; Pulse Ox 100% on R/A; rb1 ED Course: 12:17 Patient arrived in ED. rg4 12:17 Rishi Alfaro DO is Private Physician. rg4 12:24 Triage completed. hb 12:25 Arm band placed on left wrist. hb 13:24 Alana Rodriguez, RN is Primary Nurse. rb1 13:27 Patient has correct armband on for positive identification. Bed in low position. Call rb1 light in reach. Side rails up X 1. Pulse ox on. NIBP on. 13:39 Abraham Carter MD is Attending Physician. kdr 14:05 CT Head Brain wo Cont In Process Unspecified. EDMS 17:09 Angelina ElizabethDO Peter is Referral Physician. kdr 17:25 No provider procedures requiring assistance completed. IV discontinued, intact, rb1 bleeding controlled, No redness/swelling at site. Pressure dressing applied. Administered Medications: No medications were administered Outcome: 17:11 Discharge ordered by MD. kdr 17:25 Patient left the ED. rb1 17:25 Discharged to home ambulatory, with family. rb1 17:25 Condition: stable 17:25 Discharge instructions given to patient, Instructed on discharge instructions, follow up and referral plans. Demonstrated understanding of instructions, follow-up care, Prescriptions given X none Signatures: Dispatcher [employer] EDUT Abraham Carter MD MD kdr Alana Rodriguez RN RN rb1 Yris Devi RN RN Awa Belle rg4 Corrections: (The following items were deleted from the chart) 15:49 12:25 Home Meds: None; hb rb1 16:02 12:23 Acuity: ANNMARIE 4 hb hb
--- NOTE | 2018-08-08 17:12 | EDPHYS ---
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 - Social history:: Smoking status: Patient/guardian denies using tobacco. - Ebola Screening: : No symptoms or risks identified at this time. Vital Signs: 12:24 BP 159 / 81; Pulse 76; Resp 16; Temp 98.1; Pulse Ox 100% on R/A; Pain 5/10; hb 14:23 BP 128 / 76; Pulse 66; Resp 17; Pulse Ox 100% on R/A; rb1 15:23 BP 119 / 83; Pulse 68; Resp 18; Pulse Ox 100% ; rb1 16:20 BP 127 / 78; Pulse 66; Resp 17; Pulse Ox 100% ; Pain 3/10; rb1 17:20 BP 127 / 76; Pulse 70; Resp 17; Pulse Ox 100% on R/A; rb1 MDM: 17:11 Patient medically screened. kdr 08/08 13:54 Order name: CBC with Diff kdr 08/08 13:54 Order name: Comprehensive Metabolic Panel; Complete Time: 16:04 kdr 08/08 13:54 Order name: Urine Dipstick-Ancillary (obtain specimen); Complete Time: 17:33 kdr 08/08 13:54 Order name: CT Head Brain wo Cont; Complete Time: 16:04 kdr 08/08 13:54 Order name: ESR kdr Administered Medications: No medications were administered Disposition: 08/08/18 17:11 Discharged to Home. Impression: Paresthesia of skin, Headache, Abdominal and pelvic pain. - Condition is Stable. - Discharge Instructions: Abdominal Pain, Adult, General Headache Without Cause, Neuropathic Pain, Paresthesia. - Medication Reconciliation Form, Thank You Letter form. - Follow up: Rishi Alfaro DO; When: 1 - 2 days; Reason: If symptoms return, Further diagnostic work-up, Recheck today's complaints, Continuance of care, Re-evaluation by your physician. - Problem is new. - Symptoms have improved. Signatures: Dispatcher [employer] EDMS Abraham Carter MD MD [facility] Alana Rodriguez RN RN rb1 Yris Devi RN RN Corrections: (The following items were deleted from the chart) 15:49 12:25 Home Meds: None; hb rb1 17:25 17:11 08/08/2018 17:11 Discharged to Home. Impression: Paresthesia of skin; Headache; rb1 Abdominal and pelvic pain. Condition is Stable. Forms are Medication Reconciliation Form, Thank You Letter, Antibiotic Education, Prescription Opioid Use. Follow up: Rishi Alfaro; When: 1 - 2 days; Reason: If symptoms return, Further diagnostic work-up, Recheck today's complaints, Continuance of care, Re-evaluation by your physician. Problem is new. Symptoms have improved. kdr
[2018-08-08 17:42] VITALS: O2SAT 100
[2018-08-08 17:43] VITALS: TEMP 98.1
[2018-08-08 17:45] VITALS: BP 119/83
== END 2018-08-08 17:25 | disposition home or self-care (01) ==
LOC: ER 12:12
DX: R20.2 Paresthesia of skin (principal); R51 Headache; R10.2 Pelvic and perineal pain
CPT/HCPCS: 36415; 70450; 80053; 85025; 85652

== ENCOUNTER 2018-09-25 09:22 | Emergency (ER) | payer OTHER ==
--- OUTSIDE RECORDS SUMMARY | 2018-09-25 10:13 | XMS REPORT | Continuity of Care Document ---
:1965 Author Organization Interface Problems Problem Status Onset Classification Date Comments Source Date Reported LOCALIZATION Active 03/17/20 [facility] RELATED EPILEPSY Medical AND EPILEP Center SEIZURES Active 12/11/19 [place] [address] [facility] INTRACTABLE Active 11/07/19 [facility] SEIZURES 15 [facility] Seizures Resolved Problem 08/19/2015 [facility] Final: 01/24/2015 [facility] PSYMOTR EPIL W Active [facility] INTR [facility] FEBRILE Active [facility] CONVULSIONS NOS [facility] Medications Medication Details Route Status Patient Ordering Order Source Instructions Provider Date Sodium Chloride 1,000 mL, 1,000 Inactive 01/21[facility] Akua 0.154 MEQ/ML ml/hr, Infuse [facility] Medical Injectable Over: 1 hr, [place] Solution Route: IV, 1,000, Drug form: INJ, ONCE, Priority: STAT, Dosing Weight 70 kg, Start date: 01/21/15 10:15:00, Duration: 1 doses or times, Stop date: 01/21/15 10:15:00 Milk of Magnesia 2.4 gm=30 mL, Active [place] 8% oral PO, Daily, PRN 2015 Medical suspension Constipation, X Center 10 day, # 300 mL, 0 Refill(s) Citrate of 300 ml, Route: Inactive 01/21[facility] Magnesia PO, Drug Form: 2014 Medical LIQ, Dosing Center Weight 70, kg, ONCE, NOW, Start date: 01/21/15 8:11:00, Stop date: 01/21/15 8:11:00Notes: (Same as: Citrate of Magnesia) magnesium 300 ml, Route: Inactive 01/21[facility] citrate PO, Drug Form: 2014 Medical LIQ, Dosing Center Weight 70, kg, ONCE, NOW, Start date: 01/21/15 5:58:00, Stop date: 01/21/15 5:58:00Notes: (Same as: Citrate of Magnesia) Acetaminophen 1 tab, PO, Q4H, Active 01/21[facility] Akua 300 MG / Codeine PRN Pain, X 10 2014 Medical Phosphate 30 MG day, # 60 tab, 0 Center Oral Tablet Refill(s) [Tylenol with Codeine #3] heparin sodium, 5,000 unit, 1 Inactive [facility] porcine 2500 mL, Route: 2014 Medical UNT/ML SUB-Q, Drug Center Injectable form: INJ, Q8H, Solution Dosing Weight 70, kg, Start date: 01/21/15 0:00:00, Duration: 30 day, Stop date: 02/19/15 16:00:00Notes: porcine heparin levETIRAcetam 750 mg, 3 tab, No Longer [facility] Route: PO, Drug Active 2014 Medical form: TAB, Q12H, Center Dosing Weight 70, kg, Start date: 01/19/15 21:00:00, Duration: 30 day, Stop date: 02/18/15 9:00:00Notes: (Same as:Kebolivar) Divalproex 500 mg, 1 tab, No Longer [facility] Sodium 500 MG Route: PO, Drug Active 2014 Medical Enteric Coated form: ECTAB, [place] Tablet Q12H, Dosing [Depakote] Weight 70, kg, Start date: 01/19/15 21:00:00, Duration: 30 day, Stop date: 02/18/15 9:00:00, Delayed Release tabletSpecial Instructions: Delayed Release tabletNotes: (Same as: Depakote Delayed Release) Do not confuse with the extended-release tablet. Delayed absorption enteric coated tablet. Do not crush Ondansetron 4 mg, Route: Inactive [facility] IVP, ONCE, 2014 Medical Dosing Weight Center 70, kg, PRN Nausea & Vomiting, Start date: 01/19/15 13:19:00 Naloxone 0.04 mg, Route: Inactive [facility] IVP, Q2MIN, 2014 Medical Dosing Weight Center 70, kg, PRN Narcotic Reversal, Start date: 01/19/15 13:19:00, Duration: 8 doses or times, Stop date: Limited # of times Flumazenil 0.2 mg, Route: Inactive [facility] IVP, PRN, Dosing 2014 Medical Weight 70, kg, Center PRN Benzodiazepine Reversal, Initial dose, Start date: 01/19/15 13:19:00, Duration: 30 day, Stop date: 02/18/15 13:18:00 Hydromorphone 0.5 mg, Route: Inactive [facility] IVP, Q5Min, 2014 Medical Dosing Weight Center 70, kg, PRN Pain Score 7-10, Start date: 01/19/15 13:19:00, Duration: 4 doses or times, Stop date: Limited # of times Keppra 1,000 mg, Route: Inactive [facility] IVPB, ONCE, 2014 Medical Dosing Weight Center 70, kg, Loading Dose, Start date: 01/19/15 13:04:00, Duration: 1 doses or times, Stop date: 01/19/15 13:04:00Notes: Same as Keppra Mix with 100 mL NS, LR or D5W MEDICATION WASTE Product Size: 500 mg Product Wasted: ___ mg Dexamethasone 4 mg, 1 mL, No Longer [facility] Route: IVP, Drug Active 2014 Medical form: INJ, Q6H, Center Dosing Weight 70, kg, Start date: 01/19/15 12:00:00, Duration: 24 hr, Stop date: 01/20/15 6:00:00Notes: Concentration: 4mg/ml Docusate 100 mg, 1 cap, No Longer [facility] Route: PO, Drug Active 2014 Medical form: CAP, Q12H, Center Dosing Weight 70, kg, Start date: 01/19/15 9:00:00, Duration: 30 day, Stop date: 02/17/15 21:00:00Notes: (Same as: Colace) (Do Not Crush) senna 8.6 mg 8.6 mg, 1 tab, No Longer [facility] oral tablet Route: PO, Drug Active 2014 Medical Form: TAB, Center Dosing Weight 70, kg, Q12H, Start date: 01/19/15 9:00:00, Duration: 30 day, Stop date: 02/17/15 21:00:00Notes: (Same as: Senokot) Famotidine 20 mg, 2 mL, Inactive [facility] Route: IVP, Drug 2014 Medical form: INJ, Q12H, Center Dosing Weight 70, kg, Start date: 01/19/15 9:00:00, Duration: 24 hr, Stop date: 01/19/15 21:00:00Notes: (Same as: Pepcid) Can be dilute in 5-10cc NS IVP: Slow IV push over at least 2 minutes. Ancef 2 gm, Route: Inactive [facility] IVPB, ONCE, 2014 Medical Dosing Weight Center 70, kg, Start date: 01/19/15 8:40:00, Duration: 1 doses or times, Stop date: 01/19/15 8:40:00 Cefazolin 2 gm, Route: No Longer [facility] IVPB, Drug form: Active 2014 Medical INJ, Q8H, Dosing Center Weight 70, kg, Priority: Routine, Start date: 01/19/15 7:00:00, Stop date: 01/20/15 9:00:00Notes: (Same As: Ancef, Kefzol) Cefazolin FOR IV SET ONLY MEDICATION WASTE Product Size: 1000 mg Product Wasted: ___ mg Vancomycin 1 gm, Route: Inactive [facility] IVPB, Drug form: 2014 Medical INJ, [id number], Center Dosing Weight 70, kg, Time Critical Medication, Priority: Routine, Start date: 01/19/15 7:00:00, Duration: 2 doses or times, Stop date: 01/19/15 19:00:00Notes: TIME CRITICAL MEDICATION (Same As: Vancocin) Infusion rate 2001 mg: infuse over 2.5 hours MEDICATION WASTE Product Size: 1000 mg Product Wasted: ___ mg Regular Insulin, 3 unit, 0.03 mL, No Longer [facility] Human 100 UNT/ML Route: SUB-Q, Active 2014 [...] Dextrose 50% 6.25 gm, 12.5 No Longer [place] Syringe mL, Route: IVP, Active 2014 Medical Drug Form: INJ, Center Dosing Weight 70, kg, PRN, PRN Abnormal Lab Result, Start date: 01/19/15 6:36:00, Duration: 30 day, Stop date: 02/18/15 6:35:00 Ondansetron 4 MG 4 mg, 1 tab, No Longer [place] Disintegrating Route: PO, Drug Active 2014 Medical Tablet form: TABDIS, Center Q6H, Dosing Weight 70, kg, PRN Nausea & Vomiting, Start date: 01/19/15 6:34:00, Duration: 30 day, Stop date: 02/18/15 6:33:00Notes: (Same as: Zofran ODT) Ondansetron 4 mg, 2 mL, No Longer [facility] Route: IVP, Drug Active 2014 Medical form: INJ, Q6H, Center Dosing Weight 70, kg, PRN Nausea & Vomiting, Start date: 01/19/15 6:34:00, Duration: 30 day, Stop date: 02/18/15 6:33:00Notes: (Same as: Zofran) MEDICATION WASTE Product Size: 4 mg Product Wasted: ___ mg NS + KCL 20mEq/L 1,000 mL, Rate: No Longer [place] 1000ml (Premix) 80 ml/hr, Infuse Active 2014 Medical 1,000 mL over: 12.5 hr, Center Route: IV, Dosing Weight 70 kg, Total Volume: 1,000, Heplock IV when PO > 500ml, Start date: 01/19/15 6:34:00, Duration: 30 day, Stop date: 02/18/15 6:33:00Notes: PREMIX IV - Do Not Alter Acetaminophen 650 mg, 2 tab, No Longer [facility] Route: PO, Drug Active 2014 Medical form: [...] 70, kg, Oral Tablet Q4H, PRN Pain [[place] 5/325] Score 1-3, Start date: 01/19/15 6:32:00, Duration: 30 day, Stop date: 02/18/15 6:31:00Notes: (Same as: [place] 325/5) Do not exceed 4gm/day of acetaminophen. [...] Drug 2014 Medical Enteric Coated form: ECTAB, [place] Tablet ONCE, Dosing Weight 70.455, kg, Start date: 11/19/14 10:05:00, Stop date: 11/19/14 10:05:00, Delayed Release tabletSpecial Instructions: Delayed Release tabletNotes: (Same as: Depakote Delayed Release) Do not confuse with the extended-release tablet. Delayed absorption enteric coated tablet. Do not crush Keppra XR 750mg Keppra XR 750mg No Longer [place] tablet tablet, 750 mg, Active 2014 Medical Drug form: MISC, [place] Route: PO, Bedtime, 11/16/14 21:00:00, Duration: 30 [...] EXAM: MRI BRAIN WITHOUT CONTRAST 08/16 - [facility] contrast contrast /2015 - Medical MRI This report was dictated by a Crime Scene Photographer/Fellow. I have personally reviewed the images as [...] eGFR of 60-89 may be normal in [facility] mL/min/1.73 /2014 some populations, particularly the elderly, [...] Lvl 109 meq/L 95 - 109 01/20 [facility] CHEM PANEL CO2 22 meq/L 24 - 32 01/20 [facility] CHEM PANEL Potassium 4.1 meq/L 3.5 - 5.1 01/20 [facility] CHEM PANEL Sodium Lvl 141 meq/L 135 - 145 01/20 [facility] CHEM PANEL Creatinine 0.9 mg/dL 0.5 - 1.4 01/20 [facility] CHEM PANEL BUN 12 mg/dL 7 - 22 01/20 [facility] CHEM PANEL Calcium Lvl 9.1 mg/dL 8.5 - 10.5 01/20 [facility] CHEM PANEL Glucose Lvl 155 mg/dL 70 - 99 01/20 3Interpretive Data: Adult reference range values reflect the clinical guidelines of the [place] [employer]. [facility] CHEM PANEL AGAP 14.1 meq/L 10.0 - 01/20 20.0 [facility] HEMATOLOGY Monocytes # 0.2 K/CMM 0.0 - 0.8 01/20 [facility] HEMATOLOGY Segs 90.3 % 45.0 - 07 75.0 [facility] HEMATOLOGY Monocytes 1.8 % 2.0 - 12.0 01/20 [facility] HEMATOLOGY Basophils 0.1 % 0.0 - 1.0 01/20 [facility] HEMATOLOGY Segs-Bands # 7.6 K/CMM 1.5 - 8.1 01/20 [facility] HEMATOLOGY Lymphocytes 0.7 K/CMM 1.0 - 5.5 01/20 [place] # /2014 [facility] HEMATOLOGY Lymphocytes 7.8 % 20.0 - 07 40.0 [facility] HEMATOLOGY RDW 12.9 % 11.5 - 07 14.5 [facility] HEMATOLOGY Hct 30.9 % 36.0 - 07 48.0 [facility] HEMATOLOGY MCV 92.2 fL 80.0 - 07 98.0 /2014 [facility] HEMATOLOGY MCH 31.5 pg 27.0 - 01/20 31.0 [facility] HEMATOLOGY MCHC 34.2 g/dL 32.0 - 01/20 [facility] 36.0 /2014 [facility] HEMATOLOGY Platelet 165 K/CMM 133 - 450 01/20 [facility] HEMATOLOGY MPV 9.9 fL 7.4 - 10.4 01/20 [facility] HEMATOLOGY Hgb 10.6 g/dL 12.0 - 01/20 [facility] 16.0 /2014 [facility] HEMATOLOGY RBC 3.35 M/CMM 4.20 - 01/20 [facility] 5.40 /2014 [facility] HEMATOLOGY WBC 8.5 K/CMM 3.7 - 10.4 01/20 [facility] HEMATOLOGY INR 1.10 0.85 - 01/20 5Interpretive Data: RECOMMENDED RANGES FOR PROTIME INR: [facility] . 2.0-3.0 for most medical and surgical thromboembolic states. Medical 2.5-3.5 for artificial heart valves and recurrent embolism. Center INR SHOULD BE USED ONLY FOR PATIENTS ON STABLE ANTICOAGULANT THERAPY. HEMATOLOGY PTT 27.4 s 22.9 - 01/20 7Interpretive [facility] 35.8 Data: Heparin [facility] Range: 57 - 92 Seconds HEMATOLOGY PT 14.3 s 12.0 - 01/20 [facility] 14.7 [facility] I[facility]UNOLOGY [facility]15 12:01 PM) Brain wo Brain wo EXAM: CT BRAIN WITHOUT CONTRAST 01/19 [facility] contrast CT contrast CT /2014 [facility] DATE: 01/19/2015 Read by: Arsenio Ivey [...] temporal lobectomy. BLOOD BANK Antibody Negative 01/19 [facility] RESULTS Scrn [facility] (01/19/15 7:16 AM) [place] BLOOD BANK ABO/Rh O POS 01/19 [facility] RESULTS [facility] BLOOD BANK RBC product Product available 01/19 [facility] RESULTS [facility] (01/19/15 6:26 AM) [place] CHEM PANEL Magnesium 2.2 mg/dL 1.8 - 2.4 01/07 [facility] Lvl /2014 [facility] CHEM PANEL eGFR 106 01/07 2Result Comment: The eGFR is calculated using the CKD-EPI formula. In most young, healthy individuals the eGFR will be > 90 mL/min/1.73m2. The eGFR declines with age. An eGFR of 60-89 may be normal in [facility] mL/min/1.73 some populations, particularly the elderly, for whom the CKD-EPI formula has not been extensively validated. Use of the eGFR is not recommended in the following populations: [place] [address] Center Individuals with unstable creatinine concentrations, including [...] Total 0.5 mg/dL 0.2 - 1.3 01/07 [facility] CHEM PANEL AST 11 unit/L 0 - 37 01/07 [facility] CHEM PANEL Alk Phos 91 unit/L 39 - 136 01/07 [facility] CHEM PANEL ALT 22 unit/L 0 - 65 01/07 [facility] CHEM PANEL Albumin Lvl 4.3 g/dL 3.5 - 5.0 01/07 [facility] CHEM PANEL Creatinine 0.6 mg/dL 0.5 - 1.4 01/07 [facility] Lv [facility] CHEM PANEL BUN 14 mg/dL 7 - 22 01/07 [facility] CHEM PANEL CO2 31 meq/L 24 - 32 01/07 [facility] CHEM PANEL Chloride Lvl 102 meq/L 95 - 109 01/07 [facility] CHEM PANEL Potassium 4.4 meq/L 3.5 - 5.1 01/07 [facility] Lvl /2014 [facility] CHEM PANEL Sodium Lvl 141 meq/L 135 - 145 01/07 [facility] CHEM PANEL Total 7.6 g/dL 6.4 - 8.4 01/07 Protein [facility] CHEM PANEL Calcium Lvl 9.6 mg/dL 8.5 - 10.5 01/07 [facility] CHEM PANEL Glucose Lvl 98 mg/dL 70 - 99 01/07 4Interpretive Data: Adult reference range values reflect the clinical guidelines of the [place] [employer]. [facility] Center CHEM PANEL AGAP 12.4 meq/L 10.0 - 01/07 20.0 [facility] CHEM PANEL A/G Ratio 1.3 0.7 - 1.6 01/07 [facility] CHEM PANEL Globulin 3.3 g/dL 2.0 - 4.0 01/07 [facility] CHEM PANEL B/C Ratio 23 6 - 25 01/07 [facility] HEMATOLOGY INR 0.94 0.85 - 01/07 6Interpretive Data: RECOMMENDED RANGES FOR PROTIME INR: [facility] 1. 2.0-3.0 for most medical and surgical thromboembolic states. Medical 2.5-3.5 for artificial heart valves and recurrent embolism. Center INR SHOULD BE USED ONLY FOR PATIENTS ON STABLE ANTICOAGULANT THERAPY. HEMATOLOGY PT 12.5 s 12.0 - 01/07 14.7 [facility] HEMATOLOGY PTT 30.3 s 22.9 - 01/07 8Interpretive [facility] 35.8 Data: Heparin [facility] Range: 57 - 92 Seconds HEMATOLOGY Platelet 221 K/CMM 133 - 450 01/07 [facility] HEMATOLOGY RDW 13.4 % 11.5 - 01/07 14.5 [facility] HEMATOLOGY MPV 9.8 fL 7.4 - 10.4 01/07 [facility] HEMATOLOGY MCV 93.3 fL 80.0 - 01/07 98.0 [facility] HEMATOLOGY MCHC 32.5 g/dL 32.0 - 01/07 36.0 [facility] HEMATOLOGY MCH 30.4 pg 27.0 - 01/07 [place] 31.0 [facility] HEMATOLOGY Hct 42.1 % 36.0 - 01/07 [place] 48.0 /2015 [facility] HEMATOLOGY RBC 4.51 M/CMM 4.20 - 01/07 [place] 5.40 /2014 [facility] HEMATOLOGY WBC 4.7 K/CMM 3.7 - 10.4 01/07 [facility] HEMATOLOGY Hgb 13.7 g/dL 12.0 - 01/07 [place] 16.0 /2014 [facility] HEMATOLOGY Lymphocytes 2.3 K/CMM 1.0 - 5.5 01/07 # /2015 [facility] HEMATOLOGY Monocytes # 0.3 K/CMM 0.0 - 0.8 01/07 /2014 [facility] HEMATOLOGY Eosinophils 0.1 K/CMM 0.0 - 0.5 01/07 # /2014 [facility] HEMATOLOGY Segs 42.7 % 45.0 - 01/07 [place] 75.0 /2014 [facility] HEMATOLOGY Basophils 0.2 % 0.0 - 1.0 01/07 [facility] HEMATOLOGY Segs-Bands # 2.0 K/CMM 1.5 - 8.1 01/07 /2014 [facility] HEMATOLOGY Lymphocytes 49.5 % 20.0 - 01/07 [place] 40.0 /2015 [facility] HEMATOLOGY Monocytes 6.4 % 2.0 - 12.0 01/07 [facility] HEMATOLOGY Eosinophils 1.2 % 0.0 - 4.0 01/07 [facility] CHEM PANEL Globulin 3.4 g/dL 2.0 - 4.0 11/15 [facility] CHEM PANEL A/G Ratio 1.2 0.7 - 1.6 11/15 [facility] CHEM PANEL Bili 0.4 mg/dL 0.0 - 1.0 11/15 Indirect [facility] CHEM PANEL Albumin Lvl 4.0 g/dL 3.5 - 5.0 11/15 [facility] CHEM PANEL ALT 20 unit/L 0 - 65 11/15 [facility] CHEM PANEL AST 14 unit/L 0 - 37 11/15 2014 [facility] CHEM PANEL Total 7.4 g/dL 6.4 - 8.4 11/15 [facility] CHEM PANEL Bili Direct 0.1 mg/dL 0.0 - 0.3 11/15 [facility] CHEM PANEL Alk Phos 78 unit/L 39 - 136 11/15 [facility]2014 [facility] CHEM PANEL Bili Total 0.5 mg/dL 0.2 - 1.3 11/15 [facility] ELECTROLYTE AGAP 9.1 meq/L 10.0 - 11/15 [facility] 20.0 [facility] ELECTROLYTE eGFR 106 11/15 1Result Comment: The eGFR is calculated using the CKD-EPI formula. In most young, healthy individuals the eGFR will be > 90 mL/min/1.73m2. The eGFR declines with age. An eGFR of 60-89 may be normal in [facility] mL/min/1.73 some populations, particularly the elderly, for whom the CKD-EPI formula has not been extensively validated. Use of the eGFR is not recommended in the following populations: [address] Individuals with unstable creatinine concentrations, including [...] BUN 17 mg/dL 7 - 22 11/15 [facility] ELECTROLYTE Glucose Lvl 81 mg/dL 70 - 99 11/15 2Interpretive Data: Adult reference range values reflect the clinical guidelines [facility] of the [place] [employer]. [facility] ELECTROLYTE Calcium Lvl 9.0 mg/dL 8.5 - 10.5 11/15 [facility] ELECTROLYTE CO2 31 meq/L 24 - 32 11/15 [facility] ELECTROLYTE Creatinine 0.6 mg/dL 0.5 - 1.4 11/15 [facility] ELECTROLYTE Chloride Lvl 105 meq/L 95 - 109 11/15 [facility] ELECTROLYTE Sodium Lvl 141 meq/L 135 - 145 11/15 [facility]2014 [facility] ELECTROLYTE Potassium 4.1 meq/L 3.5 - 5.1 11/15 [facility] HEMATOLOGY Basophils 0.3 % 0.0 - 1.0 11/15 [facility]2014 [facility] HEMATOLOGY Eosinophils 0.7 % 0.0 - 4.0 11/15 [facility] HEMATOLOGY Monocytes 9.1 % 2.0 - 12.0 11/15 [facility] HEMATOLOGY Lymphocytes 46.9 % 20.0 - 11/15 40.0 [facility] HEMATOLOGY Segs 43.0 % 45.0 - 11/15 75.0 /2014 [facility] HEMATOLOGY Lymphocytes 2.4 K/CMM 1.0 - 5.5 11/15 # /2014 [facility] HEMATOLOGY Segs-Bands # 2.2 K/CMM 1.5 - 8.1 11/15 [facility] HEMATOLOGY Monocytes # 0.5 K/CMM 0.0 - 0.8 11/15 [facility] HEMATOLOGY MPV 11.1 fL 7.4 - 10.4 11/15 [facility] HEMATOLOGY RBC 4.47 M/CMM 4.20 - 11/15 5.40 [facility] HEMATOLOGY Hgb 13.3 g/dL 12.0 - 11/15 16.0 [facility] HEMATOLOGY RDW 13.2 % 11.5 - 11/15 14.5 [facility] HEMATOLOGY Platelet 142 K/CMM 133 - 450 11/15 [facility] HEMATOLOGY WBC 5.1 K/CMM 3.7 - 10.4 11/15 [facility] HEMATOLOGY Hct 41.7 % 36.0 - 11/15 48.0 [facility] HEMATOLOGY MCH 29.7 pg 27.0 - 11/15 31.0 [facility] HEMATOLOGY MCHC 31.9 g/dL 32.0 - 11/15 36.0 [facility] HEMATOLOGY MCV 93.2 fL 80.0 - 11/15 98.0 [facility] TOXICOLOGY [place] Lvl 11 11/15 3Result Comment: Therapeutic Levels: [facility] / Drug Dosage Trough (mcg/mL) Peak (mcg/mL) Medical L 500 mg BID 3.1 - 10.0 10.0 - 25.0 Center 1000 mg BID 4.9 - 37.1 30.0 - 40.0 1500 mg BID 7.0 - 34.0 36.1 - 70.0 Toxic level not established Test Performed at: [employer] [facility], [address] [place] [address] [address] [place], [facility] TOXICOLOGY Valproic 121 ug/ml 50 - 100 11/15 [facility] [place] Vital Signs Vital Sign Value Date Comments Source Respitory Rate 17 01/21/2015 [facility] Systolic (mm Hg) 102 01/21/2015 [facility] Diastolic (mm Hg) 69 01/21/2015 [facility] Heart Rate 69 01/21/2015 [facility] Respitory Rate 18 01/21/2015 [facility] Heart Rate 67 01/21/2015 [facility] Systolic (mm Hg) 97 01/21/2015 [facility] Diastolic (mm Hg) 70 01/21/2015 [facility] Systolic (mm Hg) 79 01/21/2015 [facility] Diastolic (mm Hg) 56 01/21/2015 [facility] Respitory Rate 18 01/21/2015 [facility] Heart Rate 65 01/21/2015 [facility] Temperature Oral (F) 98.1 F 01/21/2015 [facility] Temperature Oral (F) 97 F 01/21/2015 [facility] Temperature Oral (F) 98 F 01/21/2015 [facility] Height 162.56 cm 01/19/2015 [facility] Weight 70 01/19/2015 [facility] BMI Calculated 26.49 01/19/2015 [facility] Height 162.56 cm 01/07/2015 [facility] BMI Calculated 26.49 01/07/2015 [facility] Weight 70 01/07/2015 [facility] Temperature Oral (F) 97.8 F 11/20/2014 [facility] Heart Rate 78 11/20/2014 [facility] Respitory Rate 16 11/20/2014 [facility] Systolic (mm Hg) 121 11/20/2014 [facility] Diastolic (mm Hg) 78 11/20/2014 [facility] Heart Rate 80 11/20/2014 [facility] Temperature Oral (F) 97.3 F 11/20/2014 [facility] Systolic (mm Hg) 120 11/20/2014 [facility] Diastolic (mm Hg) 77 11/20/2014 [facility] Respitory Rate 17 11/20/2014 [facility] Temperature Oral (F) 98.1 F 11/19/2014 [facility] Systolic (mm Hg) 133 11/19/2014 [facility] Diastolic (mm Hg) 82 11/19/2014 [facility] Respitory Rate 16 11/19/2014 [facility] Heart Rate 72 11/19/2014 [facility] Weight 70.455 11/15/2014 [facility] Height 162.56 cm 11/15/2014 [facility] BMI Calculated 26.66 11/15/2014 [facility] Encounters Location Location Encounter Encounter Reason Attending ADM DC Status Source Details Type Number For Provider Date Date Visit [facility] Inpatient [id number] [place] 11/15 11/20 [facility] Mejia /2014 [facility] Inpatient [id number] [place] 01/19 01/21 [facility] /2014 [facility] Outpatient [id number] Jean-Pierre 08/16 08/17 [facility] /2015 [facility] Procedures Procedure Code Date Perfomer Comments Source
[2018-09-25 10:33] LABS: Urine Blood TRACE (NEG); Urine Glucose NEGATIVE (NEG); Urine Protein NEGATIVE (NEG)
[2018-09-25 10:41] LABS: Absolute Lymphocytes (CBC) 1.7 K/uL (0.7-4.9); Absolute Monocytes 0.4 K/uL (0.1-1.3); Absolute Neutrophil 2.8 K/uL (1.8-8.0); Basophils % 0.4 % (0-1.3); Eosinophils % 0.9 % (0-4.4); Hematocrit 40.7 % (36.0-45.0); Lymphocytes % 34.4 % (15.3-44.8); MPV 9.8 fL (7.6-11.3); Monocytes % 7.2 % (3.3-12.3); RBC Red Blood Cell Count 4.69 M/uL (3.86-4.86)
[2018-09-25 11:07] LABS: Bilirubin Direct 0.1 mg/dL (0-0.2); Bilirubin Total 0.5 mg/dL (0.2-1.0); Potassium 4.1 mmol/L (3.5-5.1); Protein, Total 7.4 g/dL (6.4-8.2)
--- NOTE | 2018-09-25 11:14 | EDPHYS ---
Physician Documentation [facility] Name: Brittany Schulte Age: 53 yrs Sex: Female : 1965 Arrival Date: 09/25/2018 Time: 09:26 Bed 5 Private MD: Rishi Alfaro H ED Physician Abraham Carter HPI: 09/25 16:05 This 53 yrs old Female presents to ER via Ambulatory with complaints of kdr Numbness Of Hand, Abdominal Pain. 16:05 The patient has multiple c/o including tingling all over and hand numbness and low kdr abdominal pain with foul smelling urine. All of these c/o have been intermittent and ongoing for some weeks. She has had many of these same s/s before. She does not appear acutely will in any way at this time. Onset: The symptoms/episode began/occurred gradually, at an unknown time. Severity of symptoms: At their worst the symptoms were very mild in the emergency department the symptoms are unchanged. The patient has experienced similar episodes in the past, multiple times, chronically. The patient has not recently seen a physician. 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 - Social history:: Smoking status: Patient/guardian denies using tobacco. - Ebola Screening: : No symptoms or risks identified at this time. ROS: 16:16 Constitutional: Negative for fever, chills, and weight loss, Eyes: Negative for injury, kdr pain, redness, and discharge, ENT: Negative for injury, pain, and discharge, Neck: Negative for injury, pain, and swelling, Cardiovascular: Negative for chest pain, palpitations, and edema, Respiratory: Negative for shortness of breath, cough, wheezing, and pleuritic chest pain, Back: Negative for injury and pain, : Negative for injury, bleeding, discharge, and swelling, MS/Extremity: Negative for injury and deformity, Skin: Negative for injury, rash, and discoloration, Psych: Negative for depression, anxiety, suicide ideation, homicidal ideation, and hallucinations, Allergy/Immunology: Negative for hives, rash, and allergies, Endocrine: Negative for neck swelling, polydipsia, polyuria, polyphagia, and marked weight changes, Hematologic/Lymphatic: Negative for swollen nodes, abnormal bleeding, and unusual bruising. 16:16 Abdomen/GI: Positive for abdominal pain, nausea, Negative for vomiting, diarrhea, constipation, abdominal cramps, abdominal distension, anorexia, black/tarry stool, rectal pain, rectal bleeding, bowel incontinence, flatulence. 16:16 Neuro: Positive for tingling, of the right arm, left arm, right leg and left leg. Exam: 16:16 Constitutional: This is a well developed, well nourished patient who is awake, alert, kdr and in no acute distress. Head/Face: Normocephalic, atraumatic. Eyes: Pupils equal round and reactive to light, extra-ocular motions intact. Lids and lashes normal. Conjunctiva and sclera are non-icteric and not injected. Cornea within normal limits. Periorbital areas with no swelling, redness, or edema. Neck: Trachea midline, no thyromegaly or masses palpated, and no cervical lymphadenopathy. Supple, full range of motion without nuchal rigidity, or vertebral point tenderness. No Meningismus. Chest/axilla: Normal chest wall appearance and motion. Nontender with no deformity. No lesions are appreciated. Cardiovascular: Regular rate and rhythm with a normal S1 and S2. No gallops, murmurs, or rubs. Normal PMI, no JVD. No pulse deficits. Respiratory: Lungs have equal breath sounds bilaterally, clear to auscultation and percussion. No rales, rhonchi or wheezes noted. No increased work of breathing, no retractions or nasal flaring. Abdomen/GI: Soft, non-tender, with normal bowel sounds. No distension or tympany. No guarding or rebound. No evidence of tenderness throughout. Back: No spinal tenderness. No costovertebral tenderness. Full range of motion. Skin: Warm, dry with normal turgor. Normal color with no rashes, no lesions, and no evidence of cellulitis. MS/ Extremity: Pulses equal, no cyanosis. Neurovascular intact. Full, normal range of motion. Neuro: Awake and alert, GCS 15, oriented to person, place, time, and situation. Cranial nerves II-XII grossly intact. Motor strength 5/5 in all extremities. Sensory grossly intact. Cerebellar exam normal. Normal gait. Psych: Awake, alert, with orientation to person, place and time. Behavior, mood, and affect are within normal limits. Vital Signs: 09:35 BP 166 / 89; Pulse 85; Resp 18 S; Temp 98.8(O); Pulse Ox 100% on R/A; Weight 69.85 kg aa5 (R); Pain 5/10; 10:45 BP 131 / 87; Pulse 69; Resp 16 S; Pulse Ox 100% on R/A; Pain 5/10; aa5 MDM: 11:14 Patient medically screened. kdr 16:16 Data reviewed: vital signs, nurses notes, lab test result(s), radiologic studies. [facility] 09/25 10:15 Order name: Basic Metabolic Panel; Complete Time: 11:10 [facility] 09/25 10:15 Order name: CBC with Diff; Complete Time: 11:00 [facility] 09/25 10:15 Order name: Creatinine for Radiology; Complete Time: 11:10 [facility] 09/25 10:15 Order name: Hepatic Function; Complete Time: 11:10 [facility] 09/25 10:15 Order name: Lipase; Complete Time: 11:10 [facility] 09/25 10:20 Order name: Urine Dipstick--Ancillary (enter results) [facility] 09/25 10:15 Order name: IV Saline Lock; Complete Time: 10:36 [facility] 09/25 10:15 Order name: Labs collected and sent; Complete Time: 10:36 [facility] 09/25 10:16 Order name: Urine Dipstick-Ancillary (obtain specimen); Complete Time: 10:19 [facility] 09/25 10:21 Order name: Urine Dipstick-Ancillary; Complete Time: 11:00 EDMS Administered Medications: No medications were administered Disposition: 09/25/18 11:14 Discharged to Home. Impression: Paresthesia of skin, Lower abdominal pain, unspecified. - Condition is Stable. - Discharge Instructions: Abdominal Pain, Adult, Paresthesia, [id number]. - Prescriptions for Bactrim DS 800- 160 mg Oral Tablet - take 1 tablet by ORAL route every 12 hours for 3 days; 6 tablet. - Medication Reconciliation Form, Thank You Letter form. - Follow up: Rishi Alfaro DO; When: 2 - 3 days; Reason: If symptoms return, Further diagnostic work-up, Recheck today's complaints, Continuance of care, Re-evaluation by your physician. Follow up: Stiven Wayne MD; When: 2 - 3 days; Reason: If symptoms return, Further diagnostic work-up, Recheck today's complaints, Continuance of care, Re-evaluation by your physician. - Problem is an ongoing problem. - Symptoms are unchanged. Signatures: Dispatcher [employer] EDMS Abraham Carter MD MD kdr Martinez, Eric em1 Linda Collins RN RN aa5 Corrections: (The following items were deleted from the chart) 11:24 11:14 09/25/2018 11:14 Discharged to Home. Impression: Paresthesia of skin; Lower aa5 abdominal pain, unspecified. Condition is Stable. Forms are Medication Reconciliation Form, Thank You Letter, Antibiotic Education, Prescription Opioid Use. Follow up: Rishi Alfaro; When: 2 - 3 days; Reason: If symptoms return, Further diagnostic work-up, Recheck today's complaints, Continuance of care, Re-evaluation by your physician. Follow up: Stiven Wayne; When: 2 - 3 days; Reason: If symptoms return, Further diagnostic work-up, Recheck today's complaints, Continuance of care, Re-evaluation by your physician. Problem is an ongoing problem. Symptoms are unchanged. kdr
--- NOTE | 2018-09-25 11:14 | ER ---
Nurse's Notes [facility] Name: Brittany Schulte Age: 53 yrs Sex: Female : 1965 Arrival Date: 09/25/2018 Time: 09:26 Bed 5 Private MD: Rishi Alfaro H Diagnosis: Paresthesia of skin;Lower abdominal pain, unspecified Presentation: 09/25 09:35 Presenting complaint: Patient states: lower abd pain, burning sensation to vaginal aa5 area, and foul odor urine x 3 days ago. Pt also c/o tingling sensation to whole body that began in July. Pt states "I was taking lisinopril but it gave me a cough so I took myself off of it back in July". 09:35 Transition of care: patient was not received from another setting of care. Onset of aa5 symptoms was September 2018. Risk Assessment: Do you want to hurt yourself or someone else? Patient reports no desire to harm self or others. Initial Sepsis Screen: Does the patient meet any 2 criteria? No. Patient's initial sepsis screen is negative. Does the patient have a suspected source of infection? No. Patient's initial sepsis screen is negative. Care prior to arrival: None. 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 - Social history:: Smoking status: Patient/guardian denies using tobacco. - Ebola Screening: : No symptoms or risks identified at this time. Screenin:40 Abuse screen: Denies threats or abuse. Nutritional screening: No deficits noted. aa5 Tuberculosis screening: No symptoms or risk factors identified. Fall Risk None identified. Assessment: 09:35 General: Appears comfortable, Behavior is cooperative, anxious. Pain: Complains of pain aa5 in right lower quadrant and left lower quadrant Quality of pain is described as pressure, Pain began 2-3 days ago. Is continuous. Neuro: Level of Consciousness is awake, alert, obeys commands, Oriented to person, place, time, situation, Residential Worker are equal bilaterally Moves all extremities. Gait is steady, Speech is normal, Facial symmetry appears normal, Pupils are PERRLA, Reports tingling to whole body . Cardiovascular: Heart tones S1 S2 present Rhythm is regular. Respiratory: Airway is patent Respiratory effort is even, unlabored, Respiratory pattern is regular, symmetrical, Breath sounds are clear bilaterally. GI: Abdomen is round non-distended, Bowel sounds present X 4 quads. Abd is soft and non tender X 4 quads. Patient currently denies diarrhea, nausea, vomiting. : Reports burning with urination, and burning to vaginal area. EENT: No signs and/or symptoms were reported regarding the EENT system. Derm: Skin is pink, warm \\T\\ dry. Musculoskeletal: Range of motion: intact in all extremities. 10:30 Reassessment: Patient is alert, oriented x 3, equal unlabored respirations, skin aa5 warm/dry/pink. Pt states "everything is just getting worse and I haven't been able to sleep much over the last week and now I think I have multiple sclerosis and I want to be checked". MD at bedside discussing POC with patient and possible d/c home with follow-up with neurologist if lab results are normal, pt agrees with plan. . 11:20 Reassessment: Patient is alert, oriented x 3, equal unlabored respirations, skin aa5 warm/dry/pink. Vital Signs: 09:35 BP 166 / 89; Pulse 85; Resp 18 S; Temp 98.8(O); Pulse Ox 100% on R/A; Weight 69.85 kg aa5 (R); Pain 5/10; 10:45 BP 131 / 87; Pulse 69; Resp 16 S; Pulse Ox 100% on R/A; Pain 5/10; aa5 ED Course: 09:26 Patient arrived in ED. mr 09:26 Rishi Alfaro DO is Private Physician. mr 09:35 Arm band placed on Patient placed in an exam room, on a stretcher. aa5 09:35 Patient has correct armband on for positive identification. Placed in gown. Bed in low aa5 position. Call light in reach. Side rails up X2. Adult w/ patient. 09:39 Linda Collins, RN is Primary Nurse. aa5 09:52 Abraham Carter MD is Attending Physician. kdr 10:01 Triage completed. aa5 10:20 Initial lab(s) drawn, by me, sent to lab. Urine collected: clean catch specimen, clear. aa5 Inserted saline lock: 20 gauge in left antecubital area, using aseptic technique. Blood collected. 10:20 No provider procedures requiring assistance completed. aa5 11:12 Rishi Alfaro DO is Referral Physician. kdr 11:12 Stiven Wayne MD is Referral Physician. kdr 11:20 IV discontinued, intact, bleeding controlled, No redness/swelling at site. Pressure aa5 dressing applied. Administered Medications: No medications were administered Outcome: 11:14 Discharge ordered by . kdr 11:20 Discharged to home ambulatory, with significant other. aa5 11:20 Condition: stable 11:20 Discharge instructions given to patient, Instructed on discharge instructions, follow up and referral plans. medication usage, Demonstrated understanding of instructions, follow-up care, medications, Prescriptions given X 1. 11:24 Patient left the ED. aa5 Signatures: Abraham Carter MD MD [facility] mr Linda Collins, RN RN aa5
[2018-09-25 11:41] VITALS: TEMP 98.8; O2SAT 100
[2018-09-25 11:42] VITALS: BP 131/87
== END 2018-09-25 11:24 | disposition home or self-care (01) ==
LOC: ER 09:22
DX: R10.30 Lower abdominal pain, unspecified (principal); I10 Essential (primary) hypertension; Z88.8 Allergy status to other drugs, medicaments and biological substances
CPT/HCPCS: 36415; 80048; 80076; 81003; 83690; 85025; 99283

== ENCOUNTER 2018-11-05 13:25 | Emergency (ER) | payer OTHER ==
--- OUTSIDE RECORDS SUMMARY | 2018-11-05 13:30 | XMS REPORT | Continuity of Care Document ---
:1965 Author Organization Interface Problems Problem Status Onset Classification Date Comments Source Date Reported LOCALIZATION Active 03/17/20 [facility] RELATED EPILEPSY Medical AND EPILEP Center SEIZURES Active 12/11/19 [place] [address] [facility] INTRACTABLE Active 11/07/19 [facility] SEIZURES 15 [facility] Seizures Resolved Problem 08/19/2015 [facility] Final: 01/24/2015 [facility] PSYMOTR EPIL W Active [facility] INTR [facility] Center FEBRILE Active [facility] CONVULSIONS NOS [facility] Medications Medication Details Route Status Patient Ordering Order Source Instructions Provider Date Sodium Chloride 1,000 mL, 1,000 Inactive 01/21[facility] Akua 0.154 MEQ/ML ml/hr, Infuse [facility] Medical Injectable Over: 1 hr, [place] Solution Route: IV, 1,000, Drug form: INJ, ONCE, Priority: STAT, Dosing Weight 70 kg, Start date: 01/21/15 10:15:00, Duration: 1 doses or times, Stop date: 01/21/15 10:15:00 Milk of Magnesia 2.4 gm=30 mL, Active [place] 8% oral PO, Daily, PRN 2015 Medical suspension Constipation, X Center 10 day, # 300 mL, 0 Refill(s) Citrate of 300 ml, Route: Inactive 01/21[facility] [place] Magnesia PO, Drug Form: 2014 Medical LIQ, Dosing Center Weight 70, kg, ONCE, NOW, Start date: 01/21/15 8:11:00, Stop date: 01/21/15 8:11:00Notes: (Same as: Citrate of Magnesia) magnesium 300 ml, Route: Inactive 01/21[facility] citrate PO, Drug Form: 2014 Medical LIQ, Dosing Center Weight 70, kg, ONCE, NOW, Start date: 01/21/15 5:58:00, Stop date: 01/21/15 5:58:00Notes: (Same as: Citrate of Magnesia) Acetaminophen 1 tab, PO, Q4H, Active 01/21[facility] Akua 300 MG / Codeine PRN Pain, X 10 2014 Medical Phosphate 30 MG day, # 60 tab, 0 Center Oral Tablet Refill(s) [Tylenol with Codeine #3] heparin sodium, 5,000 unit, 1 Inactive [facility] porcine 2500 mL, Route: 2014 Medical UNT/ML SUB-Q, Drug Center Injectable form: INJ, Q8H, Solution Dosing Weight 70, kg, Start date: 01/21/15 0:00:00, Duration: 30 day, Stop date: 02/19/15 16:00:00Notes: porcine heparin levETIRAcetam 750 mg, 3 tab, No Longer [facility] Route: PO, Drug Active 2014 Medical form: TAB, Q12H, Center Dosing Weight 70, kg, Start date: 01/19/15 21:00:00, Duration: 30 day, Stop date: 02/18/15 9:00:00Notes: (Same as:Kebolivar) Divalproex 500 mg, 1 tab, No Longer [facility] Sodium 500 MG Route: PO, Drug Active 2014 Medical Enteric Coated form: ECTAB, [place] Tablet Q12H, Dosing [Depakote] Weight 70, kg, Start date: 01/19/15 21:00:00, Duration: 30 day, Stop date: 02/18/15 9:00:00, Delayed Release tabletSpecial Instructions: Delayed Release tabletNotes: (Same as: Depakote Delayed Release) Do not confuse with the extended-release tablet. Delayed absorption enteric coated tablet. Do not crush Ondansetron 4 mg, Route: Inactive [facility] IVP, ONCE, 2014 Medical Dosing Weight Center 70, kg, PRN Nausea & Vomiting, Start date: 01/19/15 13:19:00 Naloxone 0.04 mg, Route: Inactive [facility] IVP, Q2MIN, 2014 Medical Dosing Weight Center 70, kg, PRN Narcotic Reversal, Start date: 01/19/15 13:19:00, Duration: 8 doses or times, Stop date: Limited # of times Flumazenil 0.2 mg, Route: Inactive [facility] IVP, PRN, Dosing 2014 Medical Weight 70, kg, Center PRN Benzodiazepine Reversal, Initial dose, Start date: 01/19/15 13:19:00, Duration: 30 day, Stop date: 02/18/15 13:18:00 Hydromorphone 0.5 mg, Route: Inactive [facility] IVP, Q5Min, 2014 Medical Dosing Weight Center 70, kg, PRN Pain Score 7-10, Start date: 01/19/15 13:19:00, Duration: 4 doses or times, Stop date: Limited # of times Keppra 1,000 mg, Route: Inactive [facility] IVPB, ONCE, 2014 Medical Dosing Weight Center 70, kg, Loading Dose, Start date: 01/19/15 13:04:00, Duration: 1 doses or times, Stop date: 01/19/15 13:04:00Notes: Same as Keppra Mix with 100 mL NS, LR or D5W MEDICATION WASTE Product Size: 500 mg Product Wasted: ___ mg Dexamethasone 4 mg, 1 mL, No Longer [facility] Route: IVP, Drug Active 2014 Medical form: INJ, Q6H, Center Dosing Weight 70, kg, Start date: 01/19/15 12:00:00, Duration: 24 hr, Stop date: 01/20/15 6:00:00Notes: Concentration: 4mg/ml Docusate 100 mg, 1 cap, No Longer [facility] Route: PO, Drug Active 2014 Medical form: CAP, Q12H, Center Dosing Weight 70, kg, Start date: 01/19/15 9:00:00, Duration: 30 day, Stop date: 02/17/15 21:00:00Notes: (Same as: Colace) (Do Not Crush) senna 8.6 mg 8.6 mg, 1 tab, No Longer [facility] oral tablet Route: PO, Drug Active 2014 Medical Form: TAB, Center Dosing Weight 70, kg, Q12H, Start date: 01/19/15 9:00:00, Duration: 30 day, Stop date: 02/17/15 21:00:00Notes: (Same as: Senokot) Famotidine 20 mg, 2 mL, Inactive [facility] Route: IVP, Drug 2014 Medical form: INJ, Q12H, Center Dosing Weight 70, kg, Start date: 01/19/15 9:00:00, Duration: 24 hr, Stop date: 01/19/15 21:00:00Notes: (Same as: Pepcid) Can be dilute in 5-10cc NS IVP: Slow IV push over at least 2 minutes. Ancef 2 gm, Route: Inactive [facility] IVPB, ONCE, 2014 Medical Dosing Weight Center 70, kg, Start date: 01/19/15 8:40:00, Duration: 1 doses or times, Stop date: 01/19/15 8:40:00 Cefazolin 2 gm, Route: No Longer [facility] IVPB, Drug form: Active 2014 Medical INJ, Q8H, Dosing Center Weight 70, kg, Priority: Routine, Start date: 01/19/15 7:00:00, Stop date: 01/20/15 9:00:00Notes: (Same As: Ancef, Kefzol) Cefazolin FOR IV SET ONLY MEDICATION WASTE Product Size: 1000 mg Product Wasted: ___ mg Vancomycin 1 gm, Route: Inactive [facility] IVPB, Drug form: 2014 Medical INJ, [id number], Center Dosing Weight 70, kg, Time Critical Medication, Priority: Routine, Start date: 01/19/15 7:00:00, Duration: 2 doses or times, Stop date: 01/19/15 19:00:00Notes: TIME CRITICAL MEDICATION (Same As: Vancocin) Infusion rate 2001 mg: infuse over 2.5 hours MEDICATION WASTE Product Size: 1000 mg Product Wasted: ___ mg Regular Insulin, 3 unit, 0.03 mL, No Longer [facility] Human 100 UNT/ML Route: SUB-Q, Active 2014 [...] Dextrose 50% 6.25 gm, 12.5 No Longer [place] Syringe mL, Route: IVP, Active 2014 Medical Drug Form: INJ, Center Dosing Weight 70, kg, PRN, PRN Abnormal Lab Result, Start date: 01/19/15 6:36:00, Duration: 30 day, Stop date: 02/18/15 6:35:00 Ondansetron 4 MG 4 mg, 1 tab, No Longer [place] Disintegrating Route: PO, Drug Active 2014 Medical Tablet form: TABDIS, Center Q6H, Dosing Weight 70, kg, PRN Nausea & Vomiting, Start date: 01/19/15 6:34:00, Duration: 30 day, Stop date: 02/18/15 6:33:00Notes: (Same as: Zofran ODT) Ondansetron 4 mg, 2 mL, No Longer [facility] Route: IVP, Drug Active 2014 Medical form: INJ, Q6H, Center Dosing Weight 70, kg, PRN Nausea & Vomiting, Start date: 01/19/15 6:34:00, Duration: 30 day, Stop date: 02/18/15 6:33:00Notes: (Same as: Zofran) MEDICATION WASTE Product Size: 4 mg Product Wasted: ___ mg NS + KCL 20mEq/L 1,000 mL, Rate: No Longer [place] 1000ml (Premix) 80 ml/hr, Infuse Active 2014 Medical 1,000 mL over: 12.5 hr, Center Route: IV, Dosing Weight 70 kg, Total Volume: 1,000, [place] IV when PO > 500ml, Start date: 01/19/15 6:34:00, Duration: 30 day, Stop date: 02/18/15 6:33:00Notes: PREMIX IV - Do Not Alter Acetaminophen 650 mg, 2 tab, No Longer [facility] Route: PO, Drug Active 2014 Medical form: [...] 70, kg, Oral Tablet Q4H, PRN Pain [[place] 5/325] Score 1-3, Start date: 01/19/15 6:32:00, Duration: 30 day, Stop date: 02/18/15 6:31:00Notes: (Same as: [place] 325/5) Do not exceed 4gm/day of acetaminophen. [...] Drug 2014 Medical Enteric Coated form: ECTAB, [place] Tablet ONCE, Dosing Weight 70.455, kg, Start date: 11/19/14 10:05:00, Stop date: 11/19/14 10:05:00, Delayed Release tabletSpecial Instructions: Delayed Release tabletNotes: (Same as: Depakote Delayed Release) Do not confuse with the extended-release tablet. Delayed absorption enteric coated tablet. Do not crush Keppra XR 750mg Keppra XR 750mg No Longer [place] tablet tablet, 750 mg, Active 2014 Medical Drug form: MISC, [place] Route: PO, Bedtime, 11/16/14 21:00:00, Duration: 30 [...] EXAM: MRI BRAIN WITHOUT CONTRAST 08/16 - [facility] contrast contrast /2015 - Medical MRI This report was dictated by a [employer] Operations Manager/Fellow. I have personally reviewed the images as [...] eGFR of 60-89 may be normal in [facility] mL/min/1.73 /2014 some populations, particularly the elderly, [...] Lvl 109 meq/L 95 - 109 01/20 [facility] CHEM PANEL CO2 22 meq/L 24 - 32 01/20 [facility] CHEM PANEL Potassium 4.1 meq/L 3.5 - 5.1 01/20 [facility] CHEM PANEL Sodium Lvl 141 meq/L 135 - 145 01/20 [facility] CHEM PANEL Creatinine 0.9 mg/dL 0.5 - 1.4 01/20 [facility] CHEM PANEL BUN 12 mg/dL 7 - 22 01/20 [facility] CHEM PANEL Calcium Lvl 9.1 mg/dL 8.5 - 10.5 01/20 [facility] CHEM PANEL Glucose Lvl 155 mg/dL 70 - 99 01/20 3Interpretive Data: Adult reference range values reflect the clinical guidelines of the [place] [employer]. [facility] CHEM PANEL AGAP 14.1 meq/L 10.0 - 01/20 20.0 [facility] HEMATOLOGY Monocytes # 0.2 K/CMM 0.0 - 0.8 01/20 [facility] HEMATOLOGY Segs 90.3 % 45.0 - 07 75.0 [facility] HEMATOLOGY Monocytes 1.8 % 2.0 - 12.0 01/20 [facility] HEMATOLOGY Basophils 0.1 % 0.0 - 1.0 01/20 [facility] HEMATOLOGY Segs-Bands # 7.6 K/CMM 1.5 - 8.1 01/20 [facility] HEMATOLOGY Lymphocytes 0.7 K/CMM 1.0 - 5.5 01/20 [place] # /2014 [facility] HEMATOLOGY Lymphocytes 7.8 % 20.0 - 07 40.0 [facility] HEMATOLOGY RDW 12.9 % 11.5 - 07 14.5 [facility] HEMATOLOGY Hct 30.9 % 36.0 - 07 48.0 [facility] HEMATOLOGY MCV 92.2 fL 80.0 - 07 98.0 /2014 [facility] HEMATOLOGY MCH 31.5 pg 27.0 - 01/20 31.0 [facility] HEMATOLOGY MCHC 34.2 g/dL 32.0 - 01/20 [facility] 36.0 /2014 [facility] HEMATOLOGY Platelet 165 K/CMM 133 - 450 01/20 [facility] HEMATOLOGY MPV 9.9 fL 7.4 - 10.4 01/20 [facility] HEMATOLOGY Hgb 10.6 g/dL 12.0 - 01/20 [facility] 16.0 /2014 [facility] HEMATOLOGY RBC 3.35 M/CMM 4.20 - 01/20 [facility] 5.40 /2014 [facility] HEMATOLOGY WBC 8.5 K/CMM 3.7 - 10.4 01/20 [facility] HEMATOLOGY INR 1.10 0.85 - 01/20 5Interpretive Data: RECOMMENDED RANGES FOR PROTIME INR: [facility] . 2.0-3.0 for most medical and surgical thromboembolic states. Medical 2.5-3.5 for artificial heart valves and recurrent embolism. Center INR SHOULD BE USED ONLY FOR PATIENTS ON STABLE ANTICOAGULANT THERAPY. HEMATOLOGY PTT 27.4 s 22.9 - 01/20 7Interpretive [facility] 35.8 Data: Heparin [facility] Range: 57 - 92 Seconds HEMATOLOGY PT 14.3 s 12.0 - 01/20 [facility] 14.7 [facility]OLOGY [facility]01[facility]19[facility]15 12:01 PM) Brain wo Brain wo EXAM: CT BRAIN WITHOUT CONTRAST 01/19 [facility] contrast CT contrast CT /2014 [facility] DATE: 01/19/2015 Read by: Arsenio Ivey [...] temporal lobectomy. BLOOD BANK Antibody Negative 01/19 [facility] RESULTS [facility] (01/19/15 7:16 AM) [place] BLOOD BANK ABO/Rh O POS 01/19 [facility] RESULTS [facility] BLOOD BANK RBC product Product available 01/19 [facility] RESULTS [facility] (01/19/15 6:26 AM) [place] CHEM PANEL Magnesium 2.2 mg/dL 1.8 - 2.4 01/07 [facility] Lvl /2014 [facility] CHEM PANEL eGFR 106 01/07 2Result Comment: The eGFR is calculated using the CKD-EPI formula. In most young, healthy individuals the eGFR will be > 90 mL/min/1.73m2. The eGFR declines with age. An eGFR of 60-89 may be normal in [facility] mL/min/1.73 some populations, particularly the elderly, for whom the CKD-EPI formula has not been extensively validated. Use of the eGFR is not recommended in the following populations: [place] [address] Center Individuals with unstable creatinine concentrations, including [...] Total 0.5 mg/dL 0.2 - 1.3 01/07 [facility] CHEM PANEL AST 11 unit/L 0 - 37 01/07 [facility] CHEM PANEL Alk Phos 91 unit/L 39 - 136 01/07 [facility] CHEM PANEL ALT 22 unit/L 0 - 65 01/07 [facility] CHEM PANEL Albumin Lvl 4.3 g/dL 3.5 - 5.0 01/07 [facility] CHEM PANEL Creatinine 0.6 mg/dL 0.5 - 1.4 01/07 [facility] Lv [facility] CHEM PANEL BUN 14 mg/dL 7 - 22 01/07 [facility] CHEM PANEL CO2 31 meq/L 24 - 32 01/07 [facility] CHEM PANEL Chloride Lvl 102 meq/L 95 - 109 01/07 [facility] CHEM PANEL Potassium 4.4 meq/L 3.5 - 5.1 01/07 [facility] Lvl /2014 [facility] CHEM PANEL Sodium Lvl 141 meq/L 135 - 145 01/07 [facility] CHEM PANEL Total 7.6 g/dL 6.4 - 8.4 01/07 Protein [facility] CHEM PANEL Calcium Lvl 9.6 mg/dL 8.5 - 10.5 01/07 [facility] CHEM PANEL Glucose Lvl 98 mg/dL 70 - 99 01/07 4Interpretive Data: Adult reference range values reflect the clinical guidelines of the [place] [employer]. [facility] CHEM PANEL AGAP 12.4 meq/L 10.0 - 01/07 20.0 [facility] CHEM PANEL A/G Ratio 1.3 0.7 - 1.6 01/07 [facility] CHEM PANEL Globulin 3.3 g/dL 2.0 - 4.0 01/07 [facility] CHEM PANEL B/C Ratio 23 6 - 25 01/07 [facility] HEMATOLOGY INR 0.94 0.85 - 01/07 6Interpretive Data: RECOMMENDED RANGES FOR PROTIME INR: [facility] 1. 2.0-3.0 for most medical and surgical thromboembolic states. Medical 2.5-3.5 for artificial heart valves and recurrent embolism. Center INR SHOULD BE USED ONLY FOR PATIENTS ON STABLE ANTICOAGULANT THERAPY. HEMATOLOGY PT 12.5 s 12.0 - 01/07 14.7 [facility] HEMATOLOGY PTT 30.3 s 22.9 - 01/07 8Interpretive [facility] 35.8 Data: Heparin [facility] Range: 57 - 92 Seconds HEMATOLOGY Platelet 221 K/CMM 133 - 450 01/07 [facility] HEMATOLOGY RDW 13.4 % 11.5 - 01/07 14.5 [facility] HEMATOLOGY MPV 9.8 fL 7.4 - 10.4 01/07 [facility] HEMATOLOGY MCV 93.3 fL 80.0 - 01/07 98.0 [facility] HEMATOLOGY MCHC 32.5 g/dL 32.0 - 01/07 36.0 [facility] HEMATOLOGY MCH 30.4 pg 27.0 - 01/07 [place] 31.0 [facility] HEMATOLOGY Hct 42.1 % 36.0 - 01/07 [place] 48.0 /2015 [facility] HEMATOLOGY RBC 4.51 M/CMM 4.20 - 01/07 [place] 5.40 /2014 [facility] HEMATOLOGY WBC 4.7 K/CMM 3.7 - 10.4 01/07 [facility] HEMATOLOGY Hgb 13.7 g/dL 12.0 - 01/07 [place] 16.0 /2014 [facility] HEMATOLOGY Lymphocytes 2.3 K/CMM 1.0 - 5.5 01/07 # /2015 [facility] HEMATOLOGY Monocytes # 0.3 K/CMM 0.0 - 0.8 01/07 /2014 [facility] HEMATOLOGY Eosinophils 0.1 K/CMM 0.0 - 0.5 01/07 # /2014 [facility] HEMATOLOGY Segs 42.7 % 45.0 - 01/07 [place] 75.0 /2014 [facility] HEMATOLOGY Basophils 0.2 % 0.0 - 1.0 01/07 [facility] HEMATOLOGY Segs-Bands # 2.0 K/CMM 1.5 - 8.1 01/07 /2014 [facility] HEMATOLOGY Lymphocytes 49.5 % 20.0 - 01/07 [place] 40.0 /2015 [facility] HEMATOLOGY Monocytes 6.4 % 2.0 - 12.0 01/07 [facility] HEMATOLOGY Eosinophils 1.2 % 0.0 - 4.0 01/07 [facility] CHEM PANEL Globulin 3.4 g/dL 2.0 - 4.0 11/15 [facility] CHEM PANEL A/G Ratio 1.2 0.7 - 1.6 11/15 [facility] CHEM PANEL Bili 0.4 mg/dL 0.0 - 1.0 11/15 Indirect [facility] CHEM PANEL Albumin Lvl 4.0 g/dL 3.5 - 5.0 11/15 [facility] CHEM PANEL ALT 20 unit/L 0 - 65 11/15 [facility] CHEM PANEL AST 14 unit/L 0 - 37 11/15 2014 [facility] CHEM PANEL Total 7.4 g/dL 6.4 - 8.4 11/15 [facility] CHEM PANEL Bili Direct 0.1 mg/dL 0.0 - 0.3 11/15 [facility] CHEM PANEL Alk Phos 78 unit/L 39 - 136 11/15 [facility]2014 [facility] CHEM PANEL Bili Total 0.5 mg/dL 0.2 - 1.3 11/15 [facility] ELECTROLYTE AGAP 9.1 meq/L 10.0 - 11/15 [facility] 20.0 [facility] ELECTROLYTE eGFR 106 11/15 1Result Comment: The eGFR is calculated using the CKD-EPI formula. In most young, healthy individuals the eGFR will be > 90 mL/min/1.73m2. The eGFR declines with age. An eGFR of 60-89 may be normal in [facility] mL/min/1.73 some populations, particularly the elderly, for whom the CKD-EPI formula has not been extensively validated. Use of the eGFR is not recommended in the following populations: [address] Individuals with unstable creatinine concentrations, including [...] BUN 17 mg/dL 7 - 22 11/15 [facility] ELECTROLYTE Glucose Lvl 81 mg/dL 70 - 99 11/15 2Interpretive Data: Adult reference range values reflect the clinical guidelines [facility] of the [place] [employer]. [facility] ELECTROLYTE Calcium Lvl 9.0 mg/dL 8.5 - 10.5 11/15 [facility] ELECTROLYTE CO2 31 meq/L 24 - 32 11/15 [facility] ELECTROLYTE Creatinine 0.6 mg/dL 0.5 - 1.4 11/15 [facility] ELECTROLYTE Chloride Lvl 105 meq/L 95 - 109 11/15 [facility] ELECTROLYTE Sodium Lvl 141 meq/L 135 - 145 11/15 [facility]2014 [facility] ELECTROLYTE Potassium 4.1 meq/L 3.5 - 5.1 11/15 [facility] HEMATOLOGY Basophils 0.3 % 0.0 - 1.0 11/15 [facility]2014 [facility] HEMATOLOGY Eosinophils 0.7 % 0.0 - 4.0 11/15 [facility] HEMATOLOGY Monocytes 9.1 % 2.0 - 12.0 11/15 [facility] HEMATOLOGY Lymphocytes 46.9 % 20.0 - 11/15 40.0 [facility] HEMATOLOGY Segs 43.0 % 45.0 - 11/15 75.0 /2014 [facility] HEMATOLOGY Lymphocytes 2.4 K/CMM 1.0 - 5.5 11/15 # /2014 [facility] HEMATOLOGY Segs-Bands # 2.2 K/CMM 1.5 - 8.1 11/15 [facility] HEMATOLOGY Monocytes # 0.5 K/CMM 0.0 - 0.8 11/15 [facility] HEMATOLOGY MPV 11.1 fL 7.4 - 10.4 11/15 [facility] HEMATOLOGY RBC 4.47 M/CMM 4.20 - 11/15 5.40 [facility] HEMATOLOGY Hgb 13.3 g/dL 12.0 - 11/15 16.0 [facility] HEMATOLOGY RDW 13.2 % 11.5 - 11/15 14.5 [facility] HEMATOLOGY Platelet 142 K/CMM 133 - 450 11/15 [facility] HEMATOLOGY WBC 5.1 K/CMM 3.7 - 10.4 11/15 [facility] HEMATOLOGY Hct 41.7 % 36.0 - 11/15 48.0 [facility] HEMATOLOGY MCH 29.7 pg 27.0 - 11/15 31.0 [facility] HEMATOLOGY MCHC 31.9 g/dL 32.0 - 11/15 36.0 [facility] HEMATOLOGY MCV 93.2 fL 80.0 - 11/15 98.0 [facility] TOXICOLOGY [place] Lvl 11 11/15 3Result Comment: Therapeutic Levels: [facility] / Drug Dosage Trough (mcg/mL) Peak (mcg/mL) Medical L 500 mg BID 3.1 - 10.0 10.0 - 25.0 Center 1000 mg BID 4.9 - 37.1 30.0 - 40.0 1500 mg BID 7.0 - 34.0 36.1 - 70.0 Toxic level not established Test Performed at: [facility], [address] [place] [address] [address] [place], [facility] TOXICOLOGY Valproic 121 ug/ml 50 - 100 11/15 [facility] [place] Vital Signs Vital Sign Value Date Comments Source Respitory Rate 17 01/21/2015 [facility] Systolic (mm Hg) 102 01/21/2015 [facility] Diastolic (mm Hg) 69 01/21/2015 [facility] Heart Rate 69 01/21/2015 [facility] Respitory Rate 18 01/21/2015 [facility] Heart Rate 67 01/21/2015 [facility] Systolic (mm Hg) 97 01/21/2015 [facility] Diastolic (mm Hg) 70 01/21/2015 [facility] Systolic (mm Hg) 79 01/21/2015 [facility] Diastolic (mm Hg) 56 01/21/2015 [facility] Respitory Rate 18 01/21/2015 [facility] Heart Rate 65 01/21/2015 [facility] Temperature Oral (F) 98.1 F 01/21/2015 [facility] Temperature Oral (F) 97 F 01/21/2015 [facility] Temperature Oral (F) 98 F 01/21/2015 [facility] Height 162.56 cm 01/19/2015 [facility] Weight 70 01/19/2015 [facility] BMI Calculated 26.49 01/19/2015 [facility] Height 162.56 cm 01/07/2015 [facility] BMI Calculated 26.49 01/07/2015 [facility] Weight 70 01/07/2015 [facility] Temperature Oral (F) 97.8 F 11/20/2014 [facility] Heart Rate 78 11/20/2014 [facility] Respitory Rate 16 11/20/2014 [facility] Systolic (mm Hg) 121 11/20/2014 [facility] Diastolic (mm Hg) 78 11/20/2014 [facility] Heart Rate 80 11/20/2014 [facility] Temperature Oral (F) 97.3 F 11/20/2014 [facility] Systolic (mm Hg) 120 11/20/2014 [facility] Diastolic (mm Hg) 77 11/20/2014 [facility] Respitory Rate 17 11/20/2014 [facility] Temperature Oral (F) 98.1 F 11/19/2014 [facility] Systolic (mm Hg) 133 11/19/2014 [facility] Diastolic (mm Hg) 82 11/19/2014 [facility] Respitory Rate 16 11/19/2014 [facility] Heart Rate 72 11/19/2014 [facility] Weight 70.455 11/15/2014 [facility] Height 162.56 cm 11/15/2014 [facility] BMI Calculated 26.66 11/15/2014 [facility] Encounters Location Location Encounter Encounter Reason Attending ADM DC Status Source Details Type Number For Provider Date Date Visit [facility] Inpatient [id number] [place] 11/15 11/20 [facility] [place] /2014 [facility] Inpatient [id number] [place] 01/19 01/21 [facility] /2014 [facility] Outpatient [id number] [place] 08/16 08[facility] [facility] Yarelis /2015 [facility] Procedures Procedure Code Date Perfomer Comments Source
--- OUTSIDE RECORDS SUMMARY | 2018-11-05 13:31 | XMS REPORT ---
:1965 Author Organization [facility] Address [address] [place] [address] Dr. Riddle. [address] [place] [id number] Care Team Providers Name Role Phone Unavailable Unavailable Unavailable Problems This patient has no known problems. Allergies, Adverse Reactions, Alerts This patient has no known allergies or adverse reactions. Medications This patient has no known medications.
[2018-11-05 14:43] LABS: Absolute Lymphocytes (CBC) 1.7 K/uL (0.7-4.9); Absolute Monocytes 0.5 K/uL (0.1-1.3); Absolute Neutrophil 3.1 K/uL (1.8-8.0); Basophils % 0.1 % (0-1.3); Eosinophils % 1.5 % (0-4.4); Lymphocytes % 31.4 % (15.3-44.8); Monocytes % 8.5 % (3.3-12.3); RBC Red Blood Cell Count 4.55 M/uL (3.86-4.86)
[2018-11-05 15:03] LABS: Albumin 3.8 g/dL (3.4-5.0); Bilirubin Direct 0.1 mg/dL (0-0.2); Bilirubin Total 0.7 mg/dL (0.2-1.0); Potassium 3.8 mmol/L (3.5-5.1); Protein, Total 7.2 g/dL (6.4-8.2)
[2018-11-05] MEDS ORDERED: NA CHLORIDE 0.9% 1,000 ML ONE (15:03)
--- NOTE | 2018-11-05 15:05 | RAD REPORT ---
EXAM DESCRIPTION: CT - Stone Protocol - 11/05/2018 2:54 pm CLINICAL HISTORY: Abdominal pain. COMPARISON: 2016 TECHNIQUE: Computed axial tomography of the abdomen pelvis was obtained without oral or IV contrast. Lack of IV and oral contrast limits evaluation of solid organs, bowel, and vessels. Coronal reformat cleve images were obtained and reviewed. All CT scans are performed using dose optimization technique as appropriate and may include automated exposure control or mA/KV adjustment according to patient size. FINDINGS: A renal calculus is not seen. An ureteral calculus is not noted. A bladder calculus is not present. Small renal cysts The liver, spleen, pancreas and adrenals appear grossly normal There is no evidence of diverticulitis. The appendix appears normal Small umbilical hernia IMPRESSION: Negative for a genitourinary calculus
--- NOTE | 2018-11-05 15:51 | RAD REPORT ---
EXAM DESCRIPTION: RAD - Chest Single View - 11/05/2018 3:29 pm CLINICAL HISTORY: ABDOMINAL DISTENTION Chest pain. COMPARISON: Chest Pa And Lat (2 Views) dated 08/07/2018; CHEST SINGLE VIEW dated 02/25/2014 FINDINGS: Portable technique limits examination quality. The lungs are grossly clear. The heart is normal in size. No displaced fractures. IMPRESSION: No acute intrathoracic process suspected.
[2018-11-05 15:53] LABS: Magnesium 2.2 mg/dL (1.8-2.4); NT PRO-BNP 32 pg/mL (<125); Troponin (Emerg Dept Use Only) < 0.02 ng/mL (0.0-0.045)
[2018-11-05 15:56] LABS: Protime INR 0.93
--- NOTE | 2018-11-05 17:03 | RAD REPORT ---
EXAM DESCRIPTION: MRI - Brain Wo Cont - 11/05/2018 4:28 pm CLINICAL HISTORY: DIZZINESS Headache, drowsiness, seizure. COMPARISON: Head Brain Wo Cont dated 08/08/2018 TECHNIQUE: Multi-sequence, multiplanar MR imaging of the brain was performed without contrast. FINDINGS: No intracranial hemorrhage, hydrocephalus or extra-axial fluid collections. Prominent glio sis is noted in the right temporal lobe compatible with postsurgical changes. DWI is negative for acu te CVA. Midline structures are normally formed. Mastoid air cells and paranasal sinuses are clear. IMPRESSION: Gliosis is present in the right temporal lobe compatible with prior surgery. No acute or aggressive intracranial finding.
--- NOTE | 2018-11-05 17:07 | ER ---
Nurse's Notes [facility] Name: Brittany Schulte Age: 53 yrs Sex: Female : 1965 Arrival Date: 11/05/2018 Time: 13:27 Bed 23 Private MD: Rishi Alfaro H Diagnosis: Weakness;Pain in left leg;Pain in right leg;Abdominal tenderness Presentation: 11/05 13:29 Presenting complaint: Patient states: lower abd pain, back and neck pain x 1 day. Was sv seen here for the same thing and dx with parasthesia and abd pain, f/u with her PCP and referred her to a neurologist and she has a MRI this Sunday but she cannot take the pain any longer. Transition of care: patient was not received from another setting of care. Onset of symptoms is unknown. Care prior to arrival: None. 13:29 Method Of Arrival: Ambulatory sv 13:29 Acuity: ANNMARIE 4 sv 14:02 Risk Assessment: Do you want to hurt yourself or someone else? Patient reports no hj desire to harm self or others. Initial Sepsis Screen: Does the patient meet any 2 criteria? No. Patient's initial sepsis screen is negative. Does the patient have a suspected source of infection? No. Patient's initial sepsis screen is negative. Triage Assessment: 14:02 General: Appears in no apparent distress. uncomfortable, Behavior is calm, cooperative, hj appropriate for age. Pain: Complains of pain in back, right leg and left leg. Musculoskeletal: Circulation, motion, and sensation intact. Capillary refill < 3 seconds. 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 - Social history:: Smoking status: Patient/guardian denies using tobacco, Patient/guardian denies using alcohol. - Ebola Screening: : Patient negative for fever greater than or equal to 101.5 degrees Fahrenheit, and additional compatible Ebola Virus Disease symptoms Patient denies exposure to infectious person Patient denies travel to an Ebola-affected area in the 21 days before illness onset. - Family history:: not pertinent. Screenin:00 Abuse screen: Denies threats or abuse. Denies injuries from another. Nutritional hj screening: No deficits noted. Tuberculosis screening: No symptoms or risk factors identified. Fall Risk None identified. Assessment: 14:33 General: Appears in no apparent distress. uncomfortable, Behavior is calm, cooperative, hj appropriate for age. Pain: Complains of pain in left leg and right leg and back. Neuro: Level of Consciousness is awake, alert, obeys commands, Oriented to person, place, time, situation, Appropriate for age. Cardiovascular: Capillary refill < 3 seconds Patient's skin is warm and dry. Respiratory: Airway is patent Respiratory effort is even, unlabored, Respiratory pattern is regular, symmetrical. GI: No signs and/or symptoms were reported involving the gastrointestinal system. : No signs and/or symptoms were reported regarding the genitourinary system. EENT: No signs and/or symptoms were reported regarding the EENT system. Derm: No signs and/or symptoms reported regarding the dermatologic system. Musculoskeletal: Reports pain in left leg and right leg and back. 15:09 Reassessment: Patient and/or family updated on plan of care and expected duration. Pain hj level reassessed. Patient is alert, oriented x 3, equal unlabored respirations, skin warm/dry/pink. awaiting results and POC;. 15:48 Reassessment: Patient and/or family updated on plan of care and expected duration. Pain hj level reassessed. Patient is alert, oriented x 3, equal unlabored respirations, skin warm/dry/pink. sent to XRAY:. Vital Signs: 13:32 BP 150 / 89; Pulse 78; Resp 18; Temp 98.8; Pulse Ox 99% ; Weight 69.85 kg; Height 5 ft. sv 4 in. (162.56 cm); 15:09 BP 137 / 77; Pulse 74; Resp 18; Pulse Ox 100% on R/A; hj 13:32 Body Mass Index 26.43 (69.85 kg, 162.56 cm) sv ED Course: 13:27 Patient arrived in ED. mr 13:28 Rishi Alfaro DO is Private Physician. mr 13:32 Triage completed. sv 13:32 Arm band placed on. sv 13:53 Wilfrido Dubon, RN is Primary Nurse. hj 14:03 Patient has correct armband on for positive identification. Placed in gown. Bed in low hj position. Call light in reach. Side rails up X 1. Adult w/ patient. 14:14 Ezio Gilman MD is Attending Physician. kolby 14:30 Initial lab(s) drawn, by ut, sent to lab. Inserted saline lock: 22 gauge in left hj antecubital area, using aseptic technique. Blood collected. 14:52 CT completed. Patient tolerated procedure well. Patient moved to CT via wheelchair. vr Patient moved back from CT. 14:54 CT Stone Protocol In Process Unspecified. EDMS 15:10 EKG done, by test cell technician. reviewed by Ezio Gilman MD. 3 15:36 XRAY Chest (1 view) In Process Unspecified. EDMS 15:51 Patient moved to MRI via wheelchair. em2 16:28 Brain Wo Cont In Process Unspecified. EDMS 17:06 Rishi Alfaro DO is Referral Physician. kolby 17:20 No provider procedures requiring assistance completed. IV discontinued, intact, hj bleeding controlled, No redness/swelling at site. Pressure dressing applied. Administered Medications: 14:46 Drug: NS 0.9% 1000 ml Route: IV; Rate: 1 bolus; Site: right antecubital; hj 16:00 Follow up: IV Status: Completed infusion; IV Intake: 1000ml hj Intake: 16:00 IV: 1000ml; Total: 1000ml. Outcome: 17:06 Discharge ordered by . kolby 17:20 Discharged to home ambulatory, with family. hj 17:20 Condition: stable 17:20 Discharge instructions given to patient, family, using language line- Iraqi Instructed on discharge instructions, follow up and referral plans. medication usage, Demonstrated understanding of instructions, follow-up care, medications, Prescriptions given X 3. 17:31 Patient left the ED. Signatures: Dispatcher [employer] Sandhya Almanzar RN RN sv Anderson, Corey, MD MD cha Rivera, Nikki Roth, Cristofer Galvan 2 Wilfrido Dubon RN RN Grace Agarwal 3 Corrections: (The following items were deleted from the chart) 13:34 13:32 Pulse 78bpm; Resp 18bpm; Pulse Ox 99%; Temp 98.8F; 69.85 kg; Height 5 ft. 4 in.; sv BMI: 26.4; sv
--- NOTE | 2018-11-05 17:07 | EDPHYS ---
Physician Documentation [facility] Name: Brittany Schulte Age: 53 yrs Sex: Female : 1965 Arrival Date: 11/05/2018 Time: 13:27 Bed 23 Private MD: Rishi Alfaro H ED Physician Ezio Gilman HPI: 11/05 14:43 This 53 yrs old Female presents to ER via Ambulatory with complaints of Leg kolby Pain, Back Pain. 14:43 The patient presents with decreased range of motion. kolby 14:44 The complaints affect the right leg and left leg. Context: resulted from an unknown kolby cause. Onset: The symptoms/episode began/occurred 2 day(s) ago. Modifying factors: The symptoms are alleviated by nothing. the symptoms are aggravated by nothing. Associated signs and symptoms: The patient has no apparent associated signs or symptoms. The patient presents with abdominal pain in the upper abdomen, in the lower abdomen. 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 - Social history:: Smoking status: Patient/guardian denies using tobacco, Patient/guardian denies using alcohol. - Ebola Screening: : Patient negative for fever greater than or equal to 101.5 degrees Fahrenheit, and additional compatible Ebola Virus Disease symptoms Patient denies exposure to infectious person Patient denies travel to an Ebola-affected area in the 21 days before illness onset. - Family history:: not pertinent. ROS: 14:44 Constitutional: Negative for fever, chills, and weight loss, Eyes: Negative for injury, kolby pain, redness, and discharge, ENT: Negative for injury, pain, and discharge, Neck: Negative for injury, pain, and swelling, Cardiovascular: Negative for chest pain, palpitations, and edema, Respiratory: Negative for shortness of breath, cough, wheezing, and pleuritic chest pain, Back: Negative for injury and pain, : Negative for injury, bleeding, discharge, and swelling, MS/Extremity: Negative for injury and deformity, Skin: Negative for injury, rash, and discoloration, Neuro: Negative for headache, weakness, numbness, tingling, and seizure, Psych: Negative for depression, anxiety, suicide ideation, homicidal ideation, and hallucinations, Allergy/Immunology: Negative for hives, rash, and allergies, Endocrine: Negative for neck swelling, polydipsia, polyuria, polyphagia, and marked weight changes, Hematologic/Lymphatic: Negative for swollen nodes, abnormal bleeding, and unusual bruising. 14:44 Abdomen/GI: Positive for abdominal pain, of the posterior aspect of right lateral abdomen, posterior aspect of left lateral abdomen, right lower quadrant and left lower quadrant. Exam: 14:44 Constitutional: This is a well developed, well nourished patient who is awake, alert, kolby and in no acute distress. Head/Face: Normocephalic, atraumatic. Eyes: Pupils equal round and reactive to light, extra-ocular motions intact. Lids and lashes normal. Conjunctiva and sclera are non-icteric and not injected. Cornea within normal limits. Periorbital areas with no swelling, redness, or edema. ENT: Nares patent. No nasal discharge, no septal abnormalities noted. Tympanic membranes are normal and external auditory canals are clear. Oropharynx with no redness, swelling, or masses, exudates, or evidence of obstruction, uvula midline. Mucous membranes moist. Neck: Trachea midline, no thyromegaly or masses palpated, and no cervical lymphadenopathy. Supple, full range of motion without nuchal rigidity, or vertebral point tenderness. No Meningismus. Chest/axilla: Normal chest wall appearance and motion. Nontender with no deformity. No lesions are appreciated. Cardiovascular: Regular rate and rhythm with a normal S1 and S2. No gallops, murmurs, or rubs. Normal PMI, no JVD. No pulse deficits. Respiratory: Lungs have equal breath sounds bilaterally, clear to auscultation and percussion. No rales, rhonchi or wheezes noted. No increased work of breathing, no retractions or nasal flaring. Abdomen/GI: Soft, non-tender, with normal bowel sounds. No distension or tympany. No guarding or rebound. No evidence of tenderness throughout. Back: No spinal tenderness. No costovertebral tenderness. Full range of motion. Skin: Warm, dry with normal turgor. Normal color with no rashes, no lesions, and no evidence of cellulitis. MS/ Extremity: Pulses equal, no cyanosis. Neurovascular intact. Full, normal range of motion. Neuro: Awake and alert, GCS 15, oriented to person, place, time, and situation. Cranial nerves II-XII grossly intact. Motor strength 5/5 in all extremities. Sensory grossly intact. Cerebellar exam normal. Normal gait. Psych: Awake, alert, with orientation to person, place and time. Behavior, mood, and affect are within normal limits. Vital Signs: 13:32 BP 150 / 89; Pulse 78; Resp 18; Temp 98.8; Pulse Ox 99% ; Weight 69.85 kg; Height 5 ft. sv 4 in. (162.56 cm); 15:09 BP 137 / 77; Pulse 74; Resp 18; Pulse Ox 100% on R/A; hj 13:32 Body Mass Index 26.43 (69.85 kg, 162.56 cm) sv MDM: 14:15 Patient medically screened. [facility] 16:41 Data reviewed: vital signs, nurses notes, lab test result(s), EKG, radiologic studies. [facility] 11/05 14:25 Order name: Basic Metabolic Panel; Complete Time: 15:59 11/05 14:25 Order name: CBC with Diff; Complete Time: 15:59 11/05 14:25 Order name: Creatinine for Radiology; Complete Time: 15:59 11/05 14:25 Order name: Hepatic Function; Complete Time: 15:59 11/05 14:25 Order name: Lipase; Complete Time: 15:59 11/05 14:43 Order name: Magnesium; Complete Time: 15:59 [facility] 11/05 14:43 Order name: NT PRO-BNP; Complete Time: 15:59 [facility] 11/05 14:43 Order name: PT-INR; Complete Time: 16:40 [facility] 11/05 14:43 Order name: Troponin (emerg Dept Use Only); Complete Time: 15:59 [facility] 11/05 14:43 Order name: XRAY Chest (1 view); Complete Time: 15:59 [facility] 11/05 14:43 Order name: CT Stone Protocol; Complete Time: 15:59 [facility] 11/05 14:43 Order name: Urine Culture [facility] 11/05 15:52 Order name: Brain Wo Cont; Complete Time: 17:06 [facility] 11/05 14:25 Order name: IV Saline Lock; Complete Time: 14:33 11/05 14:25 Order name: Labs collected and sent; Complete Time: 14:33 11/05 14:43 Order name: EKG; Complete Time: 14:44 [facility] 11/05 14:43 Order name: Cardiac monitoring; Complete Time: 14:48 [facility] 11/05 14:43 Order name: EKG - Nurse/Tech; Complete Time: 15:15 [facility] 11/05 14:43 Order name: O2 Per Protocol; Complete Time: 14:48 [facility] 11/05 14:43 Order name: O2 Sat Monitoring; Complete Time: 14:48 [facility] 11/05 14:43 Order name: Urine Dipstick-Ancillary (obtain specimen); Complete Time: 17:04 [facility] Administered Medications: 14:46 Drug: NS 0.9% 1000 ml Route: IV; Rate: 1 bolus; Site: right antecubital; 16:00 Follow up: IV Status: Completed infusion; IV Intake: 1000ml Disposition: 11/05/18 17:06 Discharged to Home. Impression: Weakness, Pain in left leg, Pain in right leg, Abdominal tenderness. - Condition is Stable. - Discharge Instructions: Abdominal Pain, Adult, Musculoskeletal Pain, Weakness, Abdominal Pain, Adult, Sgfi-ct-[id number], Weakness, Goet-my-Szjg, Aspirin and Your Heart. - Prescriptions for Bentyl 20 mg Oral Tablet - take 1 tablet by ORAL route every 6 hours As needed; 20 tablet. Pepcid 20 mg Oral Tablet - take 1 tablet by ORAL route every 12 hours for 10 days; 20 tablet. Zofran 4 mg Oral Tablet - take 1 tablet by ORAL route every 12 hours As needed; 20 tablet. - Medication Reconciliation Form, Thank You Letter, Antibiotic Education, Prescription Opioid Use form. - Follow up: Rishi Alfaro; When: 2 - 3 days; Reason: Recheck today's complaints, Continuance of care, Re-evaluation by your physician. Follow up: Private Physician; When: 2 - 3 days; Reason: Recheck today's complaints, Continuance of care, Re-evaluation by your physician. - Problem is new. - Symptoms have improved. Signatures: Dispatcher [employer] EDMS Sandhya Amaro, RN Ezio Rubin MD MD cha Joaquin, Henry RN RN hj Corrections: (The following items were deleted from the chart) 15:52 14:47 MR STROKE PROTOCOL+MRI.RAD.BRZ ordered. [facility] 17:31 17:06 11/05/2018 17:06 Discharged to Home. Impression: Weakness; Pain in left leg; Pain hj in right leg; Abdominal tenderness. Condition is Stable. Discharge Instructions: Abdominal Pain, Adult, Musculoskeletal Pain, Weakness, Abdominal Pain, Adult, Aywa-be-Bkcy, Weakness, Xvqo-[id number]-[id number], Aspirin and Your Heart. Prescriptions for Bentyl 20 mg Oral Tablet - take 1 tablet by ORAL route every 6 hours As needed; 20 tablet, Pepcid 20 mg Oral Tablet - take 1 tablet by ORAL route every 12 hours for 10 days; 20 tablet, Zofran 4 mg Oral Tablet - take 1 tablet by ORAL route every 12 hours As needed; 20 tablet. and Forms are Medication Reconciliation Form, Thank You Letter, Antibiotic Education, Prescription Opioid Use. Follow up: Rishi Alfaro; When: 2 - 3 days; Reason: Recheck today's complaints, Continuance of care, Re-evaluation by your physician. Follow up: Private Physician; When: 2 - 3 days; Reason: Recheck today's complaints, Continuance of care, Re-evaluation by your physician. Problem is new. Symptoms have improved. kolby
--- NOTE | 2018-11-05 17:10 | EKG ---
Test Date: 2018-11-05 Test Time: 15:02:03 Recyclable Materials Collector: FRANNIE MEASUREMENT RESULTS: Intervals: Rate: 70 NC: 182 QRSD: 74 QT: 404 QTc: 436 [place]: P: 47 NC: 182 QRS: 29 T: 22 INTERPRETIVE STATEMENTS: Normal sinus rhythm Normal ECG No previous ECG available for comparison Electronically Signed On 11-05-18 17:08:53 CDT by Skyler Andino
[2018-11-05 17:38] VITALS: TEMP 98.8
[2018-11-05 17:39] VITALS: BP 137/77; O2SAT 100
== END 2018-11-05 17:31 | disposition home or self-care (01) ==
LOC: ER 13:25
DX: R53.1 Weakness (principal); M79.604 Pain in right leg; R10.819 Abdominal tenderness, unspecified site; I10 Essential (primary) hypertension; Z88.8 Allergy status to other drugs, medicaments and biological substances
CPT/HCPCS: 36415; 70551; 71045; 74176; 76377; 80048; 80076; 83690; 83735; 83880; 84484; 85025; 85610; 87086; 87088; 93005; 96360; 99284; J7030

== ENCOUNTER 2019-06-13 18:51 | Emergency (ER) | payer OTHER ==
--- OUTSIDE RECORDS SUMMARY | 2019-06-13 18:54 | XMS REPORT ---
:1965 [facility] Address [address] [place] [address] Dr. Riddle. [address] [place] [id number] Care Team Providers Name Role Phone Unavailable Unavailable Unavailable Problems This patient has no known problems. Allergies, Adverse Reactions, Alerts This patient has no known allergies or adverse reactions. Medications This patient has no known medications.
[2019-06-13] MEDS ORDERED: NA CHLORIDE 0.9% 1,000 ML ONE (20:20)
[2019-06-13 20:29] LABS: Absolute Lymphocytes (CBC) 2.6 K/uL (0.7-4.9); Basophils % 0.3 % (0-1.3); Hematocrit 41.1 % (36.0-45.0); Lymphocytes % 32.3 % (15.3-44.8); MPV 10.4 fL (7.6-11.3); RBC Red Blood Cell Count 4.59 M/uL (3.86-4.86)
[2019-06-13 20:30] LABS: Protime INR 0.94
--- NOTE | 2019-06-13 21:01 | RAD REPORT ---
EXAM DESCRIPTION: RAD - Chest Single View - 06/13/2019 8:45 pm CLINICAL HISTORY: Cough COMPARISON: October 2018 TECHNIQUE: AP portable chest image was obtained 9 hours . FINDINGS: Lungs are clear. Heart and vasculature are normal. No measurable pleural effusion and no p neumothorax. No acute bony abnormality seen. No acute aortic findings suspected. IMPRESSION: No acute cardiopulmonary process. No significant interval change.
[2019-06-13 21:04] LABS: ALT/SGPT 24 U/L (12-78); AST/SGOT 19 U/L (15-37); Alkaline Phosphatase 95 U/L (45-117); BUN Blood Urea Nitrogen 15 mg/dL (7-18); Bicarbonate 28 mmol/L (21-32); Bilirubin Direct < 0.1 mg/dL (0-0.2); Bilirubin Total 0.3 mg/dL (0.2-1.0); Glucose Level 95 mg/dL (74-106); Lipase 139 U/L (73-393); Magnesium 2.2 mg/dL (1.8-2.4); NT PRO-BNP 75 pg/mL (<125); Potassium 3.8 mmol/L (3.5-5.1); Protein, Total 7.4 g/dL (6.4-8.2); Sodium Level 140 mmol/L (136-145); Troponin (Emerg Dept Use Only) < 0.02 ng/mL (0.0-0.045)
[2019-06-13 22:09] LABS: Urine Blood 1+ (NEG); Urine Glucose NEGATIVE (NEG); Urine Protein NEGATIVE (NEG)
--- NOTE | 2019-06-13 22:29 | EDPHYS ---
Physician Documentation [facility] Name: Brittany Schulte Age: 54 yrs Sex: Female : 1965 Arrival Date: 06/13/2019 Time: 18:55 Bed 6 Private MD: Rishi Alfaro H ED Physician Ezio Gilman HPI: 06/13 19:50 This 54 yrs old Female presents to ER via Ambulatory with complaints of Head kolby numbness. 19:50 The patient complains of pain to the top of head, left frontal area, right frontal area kolby and right temporal area. The patient describes the headache as aching. Onset: The symptoms/episode began/occurred 2 day(s) ago. The patient presents with dizziness. Context: occurred at an unknown location, occurred while the patient was at rest. Modifying factors: The symptoms are alleviated by nothing, the symptoms are aggravated by nothing. Associated signs and symptoms: The patient has no apparent associated signs or symptoms. Historical: - Allergies: 19:14 Lisinopril (Cough); ea - Home Meds: 19:14 lisinopril 10 mg Oral tab 1 tab once daily [Active]; ea - PMHx: 19:14 epilepsy; Hypertension; ea - PSHx: 19:14 Brain sx; ea - Immunization history:: Adult Immunizations up to date. - Social history:: Smoking status: Patient/guardian denies using tobacco. - Ebola Screening: : No symptoms or risks identified at this time. - Family history:: not pertinent. ROS: 19:50 Constitutional: Negative for fever, chills, and weight loss, Eyes: Negative for injury, kolby pain, redness, and discharge, ENT: Negative for injury, pain, and discharge, Neck: Negative for injury, pain, and swelling, Cardiovascular: Negative for chest pain, palpitations, and edema, Respiratory: Negative for shortness of breath, cough, wheezing, and pleuritic chest pain, Abdomen/GI: Negative for abdominal pain, nausea, vomiting, diarrhea, and constipation, Back: Negative for injury and pain, : Negative for injury, bleeding, discharge, and swelling, MS/Extremity: Negative for injury and deformity, Skin: Negative for injury, rash, and discoloration, Psych: Negative for depression, anxiety, suicide ideation, homicidal ideation, and hallucinations, Allergy/Immunology: Negative for hives, rash, and allergies, Endocrine: Negative for neck swelling, polydipsia, polyuria, polyphagia, and marked weight changes, Hematologic/Lymphatic: Negative for swollen nodes, abnormal bleeding, and unusual bruising. 19:50 Neuro: Positive for dizziness, headache. Exam: 19:50 Constitutional: This is a well developed, well nourished patient who is awake, alert, kolby and in no acute distress. Head/Face: Normocephalic, atraumatic. Eyes: Pupils equal round and reactive to light, extra-ocular motions intact. Lids and lashes normal. Conjunctiva and sclera are non-icteric and not injected. Cornea within normal limits. Periorbital areas with no swelling, redness, or edema. ENT: Nares patent. No nasal discharge, no septal abnormalities noted. Tympanic membranes are normal and external auditory canals are clear. Oropharynx with no redness, swelling, or masses, exudates, or evidence of obstruction, uvula midline. Mucous membranes moist. Neck: Trachea midline, no thyromegaly or masses palpated, and no cervical lymphadenopathy. Supple, full range of motion without nuchal rigidity, or vertebral point tenderness. No Meningismus. Chest/axilla: Normal chest wall appearance and motion. Nontender with no deformity. No lesions are appreciated. Cardiovascular: Regular rate and rhythm with a normal S1 and S2. No gallops, murmurs, or rubs. Normal PMI, no JVD. No pulse deficits. Respiratory: Lungs have equal breath sounds bilaterally, clear to auscultation and percussion. No rales, rhonchi or wheezes noted. No increased work of breathing, no retractions or nasal flaring. Abdomen/GI: Soft, non-tender, with normal bowel sounds. No distension or tympany. No guarding or rebound. No evidence of tenderness throughout. Back: No spinal tenderness. No costovertebral tenderness. Full range of motion. Skin: Warm, dry with normal turgor. Normal color with no rashes, no lesions, and no evidence of cellulitis. MS/ Extremity: Pulses equal, no cyanosis. Neurovascular intact. Full, normal range of motion. Neuro: Awake and alert, GCS 15, oriented to person, place, time, and situation. Cranial nerves II-XII grossly intact. Motor strength 5/5 in all extremities. Sensory grossly intact. Cerebellar exam normal. Normal gait. Psych: Awake, alert, with orientation to person, place and time. Behavior, mood, and affect are within normal limits. Vital Signs: 19:12 BP 163 / 99; Pulse 86; Resp 18; Temp 99; Pulse Ox 99% on R/A; Weight 70.31 kg; Height 5 ea ft. 4 in. (162.56 cm); 22:00 BP 144 / 80; Pulse 69; Resp 14 S; Pulse Ox 100% on R/A; bb 23:33 BP 144 / 88; Pulse 72; Resp 16 S; Temp 98.7(TE); Pulse Ox 100% on R/A; bb 19:12 Body Mass Index 26.61 (70.31 kg, 162.56 cm) ea MDM: 19:34 Patient medically screened. [facility] 19:52 Data reviewed: vital signs, nurses notes, lab test result(s), EKG, radiologic studies, [facility] CT scan, plain films. 06/13 19:50 Order name: Basic Metabolic Panel [facility] 06/13 19:50 Order name: CBC with Diff [facility] 06/13 19:50 Order name: LFT's [facility] 06/13 19:50 Order name: Magnesium [facility] 06/13 19:50 Order name: NT PRO-BNP [facility] 06/13 19:50 Order name: PT-INR; Complete Time: 21:07 [facility] 06/13 19:50 Order name: Troponin (emerg Dept Use Only); Complete Time: 21:07 [facility] 06/13 19:50 Order name: Lipase; Complete Time: 21:07 [facility] 06/13 19:50 Order name: Urine Culture [facility] 06/13 19:50 Order name: Basic Metabolic Panel; Complete Time: 21:07 [facility] 06/13 19:50 Order name: CBC with Automated Diff; Complete Time: 21:07 [facility] 06/13 19:50 Order name: Liver (Hepatic) Function; Complete Time: 21:07 [facility] 06/13 19:50 Order name: Magnesium; Complete Time: 21:07 [facility] 06/13 19:50 Order name: NT PRO-BNP; Complete Time: 21:07 [facility] 06/13 19:50 Order name: XRAY Chest (1 view); Complete Time: 21:07 [facility] 06/13 19:50 Order name: EKG; Complete Time: 19:51 [facility] 06/13 19:50 Order name: Cardiac monitoring; Complete Time: 20:27 [facility] 06/13 19:50 Order name: EKG - Nurse/Tech; Complete Time: 20:27 [facility] 06/13 19:50 Order name: IV Saline Lock; Complete Time: 20:27 [facility] 06/13 19:50 Order name: Labs collected and sent; Complete Time: 20:27 [facility] 06/13 19:50 Order name: O2 Per Protocol; Complete Time: 20:27 [facility] 06/13 19:50 Order name: O2 Sat Monitoring; Complete Time: 20:27 [facility] 06/13 19:50 Order name: CT Head Brain wo Cont [facility] 06/13 19:50 Order name: CT Head Angio [facility] 06/13 20:32 Order name: Urine Dipstick--Ancillary (enter results); Complete Time: 22:25 ar5 06/13 19:50 Order name: Urine Dipstick-Ancillary (obtain specimen); Complete Time: 21:50 [facility] Administered Medications: 20:27 Drug: NS 0.9% 500 ml Route: IV; Rate: bolus; Site: right antecubital; bb 21:00 Follow up: IV Status: Completed infusion; IV Intake: 500ml bb 21:00 Drug: NS 0.9% 1000 ml Route: IV; Rate: 125 ml/hr; Site: right antecubital; bb 23:35 Follow up: IV Status: Order to discontinue infusion; IV Intake: 375ml bb 22:42 Drug: Rocephin 1 grams Route: IV; Rate: per protocol; Site: right antecubital; bb 22:50 Follow up: IV Status: Completed infusion; IV Intake: 5ml bb 22:42 Drug: foLIC Acid 1 mg Route: IVPB; Site: right antecubital; bb 23:35 Follow up: IV Status: Completed infusion bb 22:43 Drug: Aspirin 81 mg Route: PO; bb 23:35 Follow up: Response: No adverse reaction bb Disposition: 06/13/19 22:27 Discharged to Home. Impression: Headache, Dizziness and giddiness, Urinary tract infection, site not specified. - Condition is Stable. - Discharge Instructions: Dizziness, General Headache Without Cause, Urinary Tract Infection, Adult, Urinary Tract Infection, Adult, [id number], Aspirin and Your Heart, General Headache Without Cause, [id number]-[id number], Dizziness, [id number]-[id number]. - Prescriptions for Meclizine 25 mg Oral Tablet - take 1 tablet by ORAL route every 8 hours As needed; 30 tablet. Macrobid 100 mg Oral Capsule - take 1 capsule by ORAL route every 12 hours for 7 days; 14 capsule. Folic Acid 1 mg Oral Tablet - take 1 tablet by ORAL route once daily; 30 tablet. - Medication Reconciliation Form, Thank You Letter, Antibiotic Education, Prescription Opioid Use form. - Follow up: Rishi Alfaro; When: 2 - 3 days; Reason: Recheck today's complaints, Continuance of care, Re-evaluation by your physician. Follow up: Stiven Wayne; When: 1 - 2 days; Reason: Recheck today's complaints, Re-evaluation by your physician. - Problem is new. - Symptoms have improved. Signatures: Dispatcher [employer] EDMS Ezio Gilman MD MD cha Ballard, Brenda RN RN Melida Campa RN RN justine Corrections: (The following items were deleted from the chart) 23:36 22:27 06/13/2019 22:27 Discharged to Home. Impression: Headache; Dizziness and bb giddiness; Urinary tract infection, site not specified. Condition is Stable. Discharge Instructions: Dizziness, General Headache Without Cause, Aspirin and Your Heart, General Headache Without Cause, Qllg-dl-[id number], Dizziness, [id number]. Prescriptions for Meclizine 25 mg Oral Tablet - take 1 tablet by ORAL route every 8 hours As needed; 30 tablet. and Forms are Medication Reconciliation Form, Thank You Letter, Antibiotic Education, Prescription Opioid Use. Follow up: Rishi Alfaro; When: 2 - 3 days; Reason: Recheck today's complaints, Continuance of care, Re-evaluation by your physician. Follow up: Stiven Wayne; When: 1 - 2 days; Reason: Recheck today's complaints, Re-evaluation by your physician. Problem is new. Symptoms have improved. kolby
--- NOTE | 2019-06-13 22:29 | ER ---
Nurse's Notes [facility] Name: Brittany Schulte Age: 54 yrs Sex: Female : 1965 Arrival Date: 06/13/2019 Time: 18:55 Bed 6 Private MD: Rishi Alfaro H Diagnosis: Headache;Dizziness and giddiness;Urinary tract infection, site not specified Presentation: 06/13 19:08 Presenting complaint: Patient states: Pt reports she has been having numbness to the ea top of the head since the beginning of the week, pt reports she saw her neurologist Dr. Child on the , pt reported he told her to see Dr. Horn at [facility]. Pt reports her symptoms have worsened and she is feeling pain to the right side of her face and burning watery eyes. Transition of care: patient was not received from another setting of care. Onset of symptoms was June 13, 2019. Risk Assessment: Do you want to hurt yourself or someone else? Patient reports no desire to harm self or others. Initial Sepsis Screen: Does the patient meet any 2 criteria? No. Patient's initial sepsis screen is negative. Does the patient have a suspected source of infection? No. Patient's initial sepsis screen is negative. Care prior to arrival: None. 19:08 Method Of Arrival: Ambulatory ea 19:08 Acuity: ANNMARIE 3 ea Triage Assessment: 23:35 Pain: Denies pain. bb Historical: - Allergies: 19:14 Lisinopril (Cough); ea - Home Meds: 19:14 lisinopril 10 mg Oral tab 1 tab once daily [Active]; ea - PMHx: 19:14 epilepsy; Hypertension; ea - PSHx: 19:14 Brain sx; ea - Immunization history:: Adult Immunizations up to date. - Social history:: Smoking status: Patient/guardian denies using tobacco. - Ebola Screening: : No symptoms or risks identified at this time. - Family history:: not pertinent. Screenin:11 Abuse screen: Denies threats or abuse. Nutritional screening: No deficits noted. ea Tuberculosis screening: No symptoms or risk factors identified. Fall Risk None identified. Assessment: 20:04 General: Appears in no apparent distress. Behavior is calm, cooperative. Neuro: Level bb of Consciousness is awake, alert, obeys commands, Oriented to person, place, time, situation, Gait is steady, Speech is normal, Facial symmetry appears normal. Cardiovascular: Heart tones S1 S2 present Capillary refill < 3 seconds Patient's skin is warm and dry. Pulses are all present. Edema is absent. Respiratory: Respiratory effort is even, unlabored, Respiratory pattern is regular, Breath sounds are clear bilaterally. GI: Abdomen is non-distended. Derm: Skin is pink, warm \T\ dry. Musculoskeletal: Circulation, motion, and sensation intact. 21:00 Reassessment: Patient and/or family updated on plan of care and expected duration. Pain bb level reassessed. Patient is alert, oriented x 3, equal unlabored respirations, skin warm/dry/pink. IV site intact, patent, with fluids infusing, family at bedside, awaiting diagnostic results. 22:00 Reassessment: Patient is alert, oriented x 3, equal unlabored respirations, skin bb warm/dry/pink. pt resting quietly, family at bedside. 23:33 Reassessment: Patient and/or family updated on plan of care and expected duration. Pain bb level reassessed. Patient is alert, oriented x 3, equal unlabored respirations, skin warm/dry/pink. pt verbalized understanding of and agrees to plan of care discharge instructions given pt ambulated with steady gait to exit accompanied by spouse. Vital Signs: 19:12 BP 163 / 99; Pulse 86; Resp 18; Temp 99; Pulse Ox 99% on R/A; Weight 70.31 kg; Height 5 ea ft. 4 in. (162.56 cm); 22:00 BP 144 / 80; Pulse 69; Resp 14 S; Pulse Ox 100% on R/A; bb 23:33 BP 144 / 88; Pulse 72; Resp 16 S; Temp 98.7(TE); Pulse Ox 100% on R/A; bb 19:12 Body Mass Index 26.61 (70.31 kg, 162.56 cm) ea ED Course: 18:55 Patient arrived in ED. mr 18:55 Rishi Alfaro DO is Private Physician. mr 19:11 Triage completed. ea 19:12 Patient has correct armband on for positive identification. Bed in low position. Call ea light in reach. 19:13 Patient placed in an exam room, on a stretcher, on pulse oximetry. ea 19:34 Ezio Gilman MD is Attending Physician. kolby 19:46 Omayra Bales, JENNY is Primary Nurse. bb 19:52 Radiology exam delayed due to lab results not completed at this time. (BUN/Creatinine). vm2 20:04 Placed in gown. bb 20:06 Radiology exam delayed due to lab results not completed at this time. (BUN/Creatinine). nj 20:26 Inserted saline lock: 20 gauge in right antecubital area, using aseptic technique. mt Blood collected. 20:46 XRAY Chest (1 view) In Process Unspecified. EDMS 20:58 Radiology exam delayed due to lab results not completed at this time. (BUN/Creatinine). vm2 21:29 CT Head Brain wo Cont In Process Unspecified. EDMS 21:31 CT Head Angio In Process Unspecified. EDMS 22:26 Rishi Alfaro DO is Referral Physician. kolby 22:26 Stiven Wayne MD is Referral Physician. kolby 23:34 No provider procedures requiring assistance completed. IV discontinued, intact, bb bleeding controlled, No redness/swelling at site. Pressure dressing applied. Administered Medications: 20:27 Drug: NS 0.9% 500 ml Route: IV; Rate: bolus; Site: right antecubital; bb 21:00 Follow up: IV Status: Completed infusion; IV Intake: 500ml bb 21:00 Drug: NS 0.9% 1000 ml Route: IV; Rate: 125 ml/hr; Site: right antecubital; bb 23:35 Follow up: IV Status: Order to discontinue infusion; IV Intake: 375ml bb 22:42 Drug: Rocephin 1 grams Route: IV; Rate: per protocol; Site: right antecubital; bb 22:50 Follow up: IV Status: Completed infusion; IV Intake: 5ml bb 22:42 Drug: foLIC Acid 1 mg Route: IVPB; Site: right antecubital; bb 23:35 Follow up: IV Status: Completed infusion bb 22:43 Drug: Aspirin 81 mg Route: PO; bb 23:35 Follow up: Response: No adverse reaction bb Intake: 21:00 IV: 500ml; Total: 500ml. bb 22:50 IV: 5ml; Total: 505ml. bb 23:35 IV: 375ml; Total: 880ml. bb Outcome: 22:27 Discharge ordered by . kolby 23:34 Discharged to home ambulatory, with family. bb 23:34 Condition: stable 23:34 Discharge instructions given to patient, Instructed on discharge instructions, follow up and referral plans. medication usage, Demonstrated understanding of instructions, follow-up care, medications, Prescriptions given X 3. 23:36 Patient left the ED. bb Signatures: Dispatcher [employer] EDMS Ezio Gilman MD MD cha Rivera, Omayra Huynh, RN RN Uzair Sarkar [facility] Sophie Horn mt, Elena RN RN justine
[2019-06-13] MEDS ORDERED: ASPIRIN 81 MG CHEWABLE TABLET ONE (22:41)
[2019-06-13] MEDS ORDERED: CEFTRIAXONE/SWI 1gm 1 GM/10 ML SYR ONE (22:43)
[2019-06-13] MEDS ORDERED: FOLIC ACID 5 MG/ML VIAL ONE (22:43)
[2019-06-13 23:44] VITALS: O2SAT 100
[2019-06-13 23:51] VITALS: BP 144/88; TEMP 98.7
--- NOTE | 2019-06-14 14:21 | EKG ---
Test Date: 2019-06-13 Test Time: 20:10:16 [employer]: BATSHEVA MEASUREMENT RESULTS: Intervals: Rate: 71 MN: 180 QRSD: 80 QT: 396 QTc: 430 [place]: P: 51 MN: 180 QRS: 8 T: 3 INTERPRETIVE STATEMENTS: Normal sinus rhythm Normal ECG Compared to ECG 11/05/2018 15:02:03 No significant changes Electronically Signed On 06-14-19 14:19:20 COLLECTOR OF AQUARIUM SPECIMENS by Lavelle Cortes
--- NOTE | 2019-06-16 14:17 | RAD REPORT ---
EXAM DESCRIPTION: Head Brain Wo Cont CLINICAL HISTORY: Dizziness. COMPARISON: None. TECHNIQUE: CT scan of the brain without IV contrast. This exam was performed according to our depa rtmental dose-optimization program, which includes automated exposure control, adjustment of the mA a nd/or kV according to patient size and/or use of iterative reconstruction technique. 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 No evidence of acute infarction, intracranial hemorrhage, extra-axial fluid collection, or midline shift. No air-fluid levels are seen in the para nasal sinuses to suggest acute sinusitis. There has been prior right frontotemporal craniotomy with o verlying surgical redd. IMPRESSION: No acute intracranial findings. Electronically signed by: Victor M Cardoza MD 06/13/2019 9:44 PM FERRYBOAT OPERATOR CABLE Due to temporary technical issues with the PACS/Fluency reporting system, reports are being signed by the in house radiologist as a courtesy to ensure prompt reporting. The interpreting radiologist is f ully responsible for the content of the report.
--- NOTE | 2019-06-16 14:20 | RAD REPORT ---
EXAM DESCRIPTION: CT Angiography Head With Intravenous Contrast CLINICAL HISTORY: The patient is 54 years old and is Female; DIZZINESS TECHNIQUE: Axial computed tomographic angiography images of the head with intravenous contrast. Sa gittal and coronal reformatted images were created and reviewed. This CT exam was performed using o ne or more of the following dose reduction techniques: automated exposure control, adjustment of th e mA and/or kV according to patient size, and/or use of iterative reconstruction technique. MIP reconstructed images were created and reviewed. COMPARISON: CT of the head performed the same day. FINDINGS: RIGHT INTERNAL CAROTID ARTERY: No acute findings. Intracranial segment is patent with no significant stenosis. No aneurysm. RIGHT ANTERIOR CEREBRAL ARTERY: Unremarkable. No occlusion or significant stenosis. No aneur ysm. RIGHT MIDDLE CEREBRAL ARTERY: Unremarkable. No occlusion or significant stenosis. No aneurys m. RIGHT POSTERIOR CEREBRAL ARTERY: Unremarkable. No occlusion or significant stenosis. No aneu rysm. RIGHT VERTEBRAL ARTERY: Unremarkable as visualized. LEFT INTERNAL CAROTID ARTERY: No acute findings. Intracranial segment is patent with no signif icant stenosis. No aneurysm. LEFT ANTERIOR CEREBRAL ARTERY: Unremarkable. No occlusion or significant stenosis. No aneury sm. LEFT MIDDLE CEREBRAL ARTERY: Unremarkable. No occlusion or significant stenosis. No aneurysm . LEFT POSTERIOR CEREBRAL ARTERY: There is persistent origin of the left posterior cerebral ar kenzie. No significant stenosis or occlusion. No aneurysm. LEFT VERTEBRAL ARTERY: Unremarkable as visualized. BASILAR ARTERY: Unremarkable. No significant stenosis. No occlusion. No aneurysm. IMPRESSION: Unremarkable head CTA. Electronically signed by: Ritu Drummond MD 06/13/2019 9:50 PM RIB KNITTER Due to temporary technical issues with the PACS/Fluency reporting system, reports are being signed by the in house radiologist as a courtesy to ensure prompt reporting. The interpreting radiologist is f ernaly responsible for the content of the report.
== END 2019-06-13 23:36 | disposition home or self-care (01) ==
LOC: ER 18:51
DX: N39.0 Urinary tract infection, site not specified (principal); R42 Dizziness and giddiness; I10 Essential (primary) hypertension; Z88.8 Allergy status to other drugs, medicaments and biological substances
CPT/HCPCS: 96365; 96361; 93005; 87088; 85025; 87086; 80048; 36415; 83735; 85610; 80076; 81003; 84484; 83690; 83880; 70450; 70496; 71045; 96375; 99284; Q9967; J0696; J7030

== ENCOUNTER 2019-06-20 11:12 | Emergency (ER) | payer OTHER ==
--- OUTSIDE RECORDS SUMMARY | 2019-06-20 11:21 | XMS REPORT ---
:1965 [facility] Address [address] [place] [address] [address] [place] [address] Care Team Providers Name Role Phone Unavailable Unavailable Unavailable Problems This patient has no known problems. Allergies, Adverse Reactions, Alerts This patient has no known allergies or adverse reactions. Medications This patient has no known medications.
[2019-06-20] MEDS ORDERED: DIAZEPAM 5 MG TABLET ONE (14:49)
[2019-06-20] MEDS ORDERED: MECLIZINE HCL 12.5 MG TAB ONE (14:49)
[2019-06-20 15:03] LABS: Absolute Lymphocytes (CBC) 1.9 K/uL (0.7-4.9); Basophils % 0.3 % (0-1.3); Hematocrit 41.1 % (36.0-45.0); Lymphocytes % 28.5 % (15.3-44.8); MPV 10.3 fL (7.6-11.3); RBC Red Blood Cell Count 4.66 M/uL (3.86-4.86)
--- NOTE | 2019-06-20 15:07 | RAD REPORT ---
EXAM DESCRIPTION: CT - Head Brain Wo Cont - 06/20/2019 2:53 pm CLINICAL HISTORY: Weakness, numbness, history of brain surgery COMPARISON: June 13 TECHNIQUE: Axial 5 mm thick images of the head were obtained without IV contrast. All CT scans are performed using dose optimization technique as appropriate and may include automated exposure control or mA/KV adjustment according to patient size. FINDINGS: No intracranial hemorrhage, mass, edema or shift of mid-line structures. No acute infarcti on changes seen. Postsurgical changes are present in the right temporal lobe/middle cranial fossa. No change from the short interval June 13 imaging. Ventricles are normal. Mastoid air cells and visualized portions of the paranasal sinuses are clear. No acute bony findings. IMPRESSION: Negative noncontrast CT head study for acute finding. No finding since June 13 imaging.
[2019-06-20 15:11] LABS: BUN Blood Urea Nitrogen 20 mg/dL (7-18); Bicarbonate 29 mmol/L (21-32); Glucose Level 95 mg/dL (74-106); Potassium 4.3 mmol/L (3.5-5.1); Sodium Level 138 mmol/L (136-145)
--- NOTE | 2019-06-20 17:46 | EDPHYS ---
Physician Documentation [facility] Name: Brittany Schulte Age: 54 yrs Sex: Female : 1965 Arrival Date: 06/20/2019 Time: 11:14 Bed 19 Private MD: Rishi Alfaro H ED Physician Abraham Carter HPI: 06/20 17:54 This 54 yrs old Female presents to ER via Ambulatory with complaints of kdr Numbness, General Weakness. 17:54 The patient's problem is reported as paresthesias, Dizziness. Onset: The kdr symptoms/episode began/occurred gradually, The pain and paresthesias have been ongoing for more than a week and she was seen here previously for similar c/o. Since the initial presentation, her s/s have not worsened but have persisted and today, she requested an MRI. Duration: The episode is continuous, Wax and wane. Context: symptoms became apparent at an unknown time, occurred at home. Severity of symptoms: At their worst the symptoms were mild moderate just prior to arrival, in the emergency department the symptoms are unchanged. Patient's baseline: Neuro: alert and fully oriented, Motor: no deficits, Ambulation: walks without assistance, Speech: normal. The patient has not experienced similar symptoms in the past. The patient has been recently seen at the [facility] Emergency Department, last week. Historical: - Allergies: 11:30 Lisinopril (Cough); aa5 - PMHx: 11:30 epilepsy; Hypertension; aa5 - PSHx: 11:30 Brain Sx 2014; aa5 - Immunization history:: Flu vaccine is not up to date. - Social history:: Smoking status: Patient/guardian denies using tobacco. - Ebola Screening: : No symptoms or risks identified at this time. ROS: 17:54 Constitutional: Negative for fever, chills, and weight loss, Eyes: Negative for injury, kdr pain, redness, and discharge, Neck: Negative for injury, pain, and swelling, Cardiovascular: Negative for chest pain, palpitations, and edema, Respiratory: Negative for shortness of breath, cough, wheezing, and pleuritic chest pain, Abdomen/GI: Negative for abdominal pain, nausea, vomiting, diarrhea, and constipation, Back: Negative for injury and pain, : Negative for injury, bleeding, discharge, and swelling, MS/Extremity: Negative for injury and deformity, Skin: Negative for injury, rash, and discoloration, Psych: Negative for depression, anxiety, suicide ideation, homicidal ideation, and hallucinations, Allergy/Immunology: Negative for hives, rash, and allergies, Endocrine: Negative for neck swelling, polydipsia, polyuria, polyphagia, and marked weight changes, Hematologic/Lymphatic: Negative for swollen nodes, abnormal bleeding, and unusual bruising. 17:54 Neuro: Positive for dizziness, numbness, Negative for hearing loss, loss of consciousness, seizure activity, speech changes, syncope, near syncope, weakness. Exam: 17:54 Radiologist reports: Normal kdr 17:54 Constitutional: This is a well developed, well nourished patient who is awake, alert, and in no acute distress. Head/Face: Normocephalic, atraumatic. Eyes: Pupils equal round and reactive to light, extra-ocular motions intact. Lids and lashes normal. Conjunctiva and sclera are non-icteric and not injected. Cornea within normal limits. Periorbital areas with no swelling, redness, or edema. Neck: Trachea midline, no thyromegaly or masses palpated, and no cervical lymphadenopathy. Supple, full range of motion without nuchal rigidity, or vertebral point tenderness. No Meningismus. Chest/axilla: Normal chest wall appearance and motion. Nontender with no deformity. No lesions are appreciated. Cardiovascular: Regular rate and rhythm with a normal S1 and S2. No gallops, murmurs, or rubs. Normal PMI, no JVD. No pulse deficits. Respiratory: Lungs have equal breath sounds bilaterally, clear to auscultation and percussion. No rales, rhonchi or wheezes noted. No increased work of breathing, no retractions or nasal flaring. Abdomen/GI: Soft, non-tender, with normal bowel sounds. No distension or tympany. No guarding or rebound. No evidence of tenderness throughout. Back: No spinal tenderness. No costovertebral tenderness. Full range of motion. Skin: Warm, dry with normal turgor. Normal color with no rashes, no lesions, and no evidence of cellulitis. MS/ Extremity: Pulses equal, no cyanosis. Neurovascular intact. Full, normal range of motion. Neuro: Awake and alert, GCS 15, oriented to person, place, time, and situation. Cranial nerves II-XII grossly intact. Motor strength 5/5 in all extremities. Sensory grossly intact. Cerebellar exam normal. Normal gait. Psych: Awake, alert, with orientation to person, place and time. Behavior, mood, and affect are within normal limits. Vital Signs: 11:30 BP 152 / 96; Pulse 84; Resp 16 S; Temp 98.8(O); Pulse Ox 100% on R/A; Weight 64.41 kg aa5 (R); Height 5 ft. 5 in. (165.10 cm) (R); Pain 8/10; 14:00 BP 146 / 85; Pulse 69; Resp 18; Pulse Ox 99% on R/A; Pain 8/10; em 15:00 BP 134 / 88; Pulse 86; Resp 16; Pulse Ox 99% on R/A; em 16:00 BP 153 / 89; Pulse 66; Resp 20; Pulse Ox 99% on R/A; em 17:12 BP 138 / 85; Pulse 64; Resp 18; Pulse Ox 99% on R/A; em 11:30 Body Mass Index 23.63 (64.41 kg, 165.10 cm) aa5 MDM: 17:45 Patient medically screened. kdr 17:54 Differential diagnosis: CVA, TIA, paralysis, metabolic disorder, drug effects. Data kdr reviewed: vital signs, nurses notes. Counseling: I had a detailed discussion with the patient and/or guardian regarding: the historical points, exam findings, and any diagnostic results supporting the discharge/admit diagnosis, lab results, radiology results, the need for outpatient follow up. 06/20 14:35 Order name: CBC with Diff kdr 06/20 14:35 Order name: Chem 7 kdr 06/20 14:35 Order name: CT Head Brain wo Cont kdr 06/20 15:05 Order name: CBC with Automated Diff; Complete Time: 15:28 EDMS 06/20 15:08 Order name: CT; Complete Time: 15:28 EDMS 06/20 15:11 Order name: Basic Metabolic Panel; Complete Time: 15:28 EDMS Administered Medications: 14:49 Drug: Meclizine 25 mg Route: PO; em 15:49 Follow up: Response: No adverse reaction; Marked relief of symptoms em 14:49 Drug: Valium 5 mg Route: PO; em 15:49 Follow up: Response: No adverse reaction; Marked relief of symptoms em Disposition: 06/20/19 17:45 Discharged to Home. Impression: Dizziness and giddiness, Vertiginous syndromes in diseases classified elsewhere. - Condition is Stable. - Discharge Instructions: Vertigo, Gpym-dn-[id number], Dizziness, Hkdt-ko-Mpod. - Prescriptions for Meclizine 25 mg Oral Tablet - take 1 tablet by ORAL route every 8 hours As needed; 15 tablet. Valium 2 mg Oral Tablet - take 1 tablet by ORAL route every 8 hours As needed; 12 tablet. Bactrim DS 800- 160 mg Oral Tablet - take 1 tablet by ORAL route every 12 hours for 10 days; 20 tablet. - Medication Reconciliation Form, Thank You Letter form. - Follow up: Rishi Alfaro DO; When: 2 - 3 days; Reason: If symptoms return, Further diagnostic work-up, Recheck today's complaints, Continuance of care, Re-evaluation by your physician. Follow up: Stiven Wayne MD; When: 2 - 3 days; Reason: If symptoms return, Further diagnostic work-up, Recheck today's complaints, Continuance of care, Re-evaluation by your physician. - Problem is an ongoing problem. - Symptoms have improved. Signatures: Dispatcher [employer] Abraham Haas MD MD [facility] Lance Cannon, POWER PLANT SUPERVISOR POWER PLANT SUPERVISOR Linda Collins, RN RN aa5 Corrections: (The following items were deleted from the chart) 18:04 17:45 06/20/2019 17:45 Discharged to Home. Impression: Dizziness and giddiness; em Vertiginous syndromes in diseases classified elsewhere. Condition is Stable. Forms are Medication Reconciliation Form, Thank You Letter, Antibiotic Education, Prescription Opioid Use. Follow up: Rishi Alfaro; When: 2 - 3 days; Reason: If symptoms return, Further diagnostic work-up, Recheck today's complaints, Continuance of care, Re-evaluation by your physician. Follow up: Stiven Wayne; When: 2 - 3 days; Reason: If symptoms return, Further diagnostic work-up, Recheck today's complaints, Continuance of care, Re-evaluation by your physician. Problem is an ongoing problem. Symptoms have improved. kdr
--- NOTE | 2019-06-20 17:46 | ER ---
Nurse's Notes [facility] Name: Brittany Schulte Age: 54 yrs Sex: Female : 1965 Arrival Date: 06/20/2019 Time: 11:14 Bed 19 Private MD: Rishi Alfaro H Diagnosis: Dizziness and giddiness;Vertiginous syndromes in diseases classified elsewhere Presentation: 06/20 11:25 Presenting complaint: Patient states: Numbness to top of head. Pt states "I was here aa5 last Sunday and they did a CT scan and blood work but I tried to follow-up but everybody is closed because of the holidays". Pt c/o generalized weakness today. Pt reports taking Macrobid for UTI. Transition of care: patient was not received from another setting of care. Onset of symptoms was May 2019. Risk Assessment: Do you want to hurt yourself or someone else? Patient reports no desire to harm self or others. Initial Sepsis Screen: Does the patient meet any 2 criteria? No. Patient's initial sepsis screen is negative. Does the patient have a suspected source of infection? Yes: Dysuria/Frequency/Urgency/UTI. Care prior to arrival: None. 11:25 Acuity: ANNMARIE 3 aa5 11:25 Method Of Arrival: Ambulatory aa5 Historical: - Allergies: 11:30 Lisinopril (Cough); aa5 - PMHx: 11:30 epilepsy; Hypertension; aa5 - PSHx: 11:30 Brain Sx 2014; aa5 - Immunization history:: Flu vaccine is not up to date. - Social history:: Smoking status: Patient/guardian denies using tobacco. - Ebola Screening: : No symptoms or risks identified at this time. Screenin:02 Abuse screen: Denies threats or abuse. Nutritional screening: No deficits noted. em Tuberculosis screening: No symptoms or risk factors identified. Fall Risk No fall in past 12 months (0 pts). Assessment: 14:02 General: Appears in no apparent distress. comfortable, Behavior is cooperative, em anxious, Denies fever. Pain: Complains of pain in head Pain currently is 8 out of 10 on a pain scale. Pain began 2 weeks ago. Neuro: Level of Consciousness is awake, alert, obeys commands, Oriented to person, place, time, situation, Appropriate for age Reports dizziness, headache paresthesias in right arm and left arm since 2 weeks. Cardiovascular: Capillary refill < 3 seconds Patient's skin is warm and dry. Respiratory: Airway is patent Respiratory effort is even, unlabored, Respiratory pattern is regular, symmetrical. GI: Abdomen is flat, Patient currently denies nausea, vomiting. Derm: Skin is intact, is healthy with good turgor, Skin is pink, warm \\T\\ dry. Musculoskeletal: Capillary refill < 3 seconds, Range of motion: intact in all extremities. 16:12 Reassessment: Patient appears in no apparent distress at this time. Patient and/or em family updated on plan of care and expected duration. Pain level reassessed. Patient is alert, oriented x 3, equal unlabored respirations, skin warm/dry/pink. Patient states feeling better. Patient states symptoms have improved. 17:32 Reassessment: Patient appears in no apparent distress at this time. Patient and/or em family updated on plan of care and expected duration. Pain level reassessed. Patient is alert, oriented x 3, equal unlabored respirations, skin warm/dry/pink. Patient denies pain at this time. Patient states feeling better. Patient states symptoms have improved. Vital Signs: 11:30 BP 152 / 96; Pulse 84; Resp 16 S; Temp 98.8(O); Pulse Ox 100% on R/A; Weight 64.41 kg aa5 (R); Height 5 ft. 5 in. (165.10 cm) (R); Pain 8/10; 14:00 BP 146 / 85; Pulse 69; Resp 18; Pulse Ox 99% on R/A; Pain 8/10; em 15:00 BP 134 / 88; Pulse 86; Resp 16; Pulse Ox 99% on R/A; em 16:00 BP 153 / 89; Pulse 66; Resp 20; Pulse Ox 99% on R/A; em 17:12 BP 138 / 85; Pulse 64; Resp 18; Pulse Ox 99% on R/A; em 11:30 Body Mass Index 23.63 (64.41 kg, 165.10 cm) aa5 ED Course: 11:14 Patient arrived in ED. am2 11:14 Rishi Alfaro DO is Private Physician. am2 11:25 Arm band placed on. aa5 11:28 Triage completed. aa5 13:34 Lance Cannon LVN is Primary Nurse. em 14:02 Patient has correct armband on for positive identification. Placed in gown. Bed in low em position. Side rails up X2. Pulse ox on. NIBP on. 14:06 Abraham Carter MD is Attending Physician. kdr 14:49 Initial lab(s) drawn, by ne, sent to lab. Inserted saline lock: 22 gauge in left jb1 antecubital area, using aseptic technique. Blood collected. 14:50 Chem 7 Sent. jb1 14:50 CBC with Diff Sent. jb1 14:52 CT completed. Patient tolerated procedure well. Patient moved to CT via wheelchair. wv Patient moved back from CT. 17:44 Rishi Alfaro DO is Referral Physician. kdr 17:44 Stiven Wayne MD is Referral Physician. kdr 17:57 No provider procedures requiring assistance completed. IV discontinued, intact, em bleeding controlled, No redness/swelling at site. Pressure dressing applied. Administered Medications: 14:49 Drug: Meclizine 25 mg Route: PO; em 15:49 Follow up: Response: No adverse reaction; Marked relief of symptoms em 14:49 Drug: Valium 5 mg Route: PO; em 15:49 Follow up: Response: No adverse reaction; Marked relief of symptoms em Outcome: 17:45 Discharge ordered by . kdr 17:57 Discharged to home ambulatory, with family. em 17:57 Condition: good 17:57 Discharge instructions given to patient, family, Instructed on discharge instructions, follow up and referral plans. medication usage, Demonstrated understanding of instructions, follow-up care, medications, Prescriptions given X 3. 18:04 Patient left the ED. em Signatures: David Corea jb1 Abraham Carter MD MD kdr Lance Cannon LVN SENSORY SCIENTIST em Linda Collins RN RN aa5 Uzair George Amanda am2 Corrections: (The following items were deleted from the chart) 11:31 11:30 BP 152 / 96; Pulse 84bpm; Resp 16bpm; Spontaneous; Pulse Ox 100% RA; Temp 98.8F aa5 Oral; 64.41 kg Reported; Height 5 ft. 5 in. Reported; BMI: 23.6; aa5 17:58 16:00 BP 134 / 88; Pulse 86bpm; Resp 16bpm; Pulse Ox 99% RA; em em
[2019-06-20 23:35] VITALS: TEMP 98.8
[2019-06-20 23:36] VITALS: O2SAT 99
[2019-06-20 23:40] VITALS: BP 138/85
== END 2019-06-20 18:04 | disposition home or self-care (01) ==
LOC: ER 11:12
DX: R42 Dizziness and giddiness (principal); H82.9 Vertiginous syndromes in diseases classified elsewhere, unspecified ear; I10 Essential (primary) hypertension; Z88.8 Allergy status to other drugs, medicaments and biological substances
CPT/HCPCS: 85025; 80048; 36415; 70450; 99284; J8597

== ENCOUNTER 2019-07-29 09:34 | Day surgery (SDC) | payer OTHER ==
--- OUTSIDE RECORDS SUMMARY | 2019-07-29 09:42 | XMS REPORT ---
:1965 [facility] Address [address] [place] [address] Dr. Riddle. [address] [place] [id number] Care Team Providers Name Role Phone Unavailable Unavailable Unavailable Problems This patient has no known problems. Allergies, Adverse Reactions, Alerts This patient has no known allergies or adverse reactions. Medications This patient has no known medications.
[2019-07-29 10:05] LABS: MPV 9.9 fL (7.6-11.3)
[2019-07-29 10:10] LABS: Protime INR 0.97
[2019-07-29 10:30] LABS: Platelet Estimate ADEQ
[2019-07-29 10:40] VITALS: BMI 24.9
--- NOTE | 2019-07-29 12:31 | RAD REPORT ---
EXAM DESCRIPTION: RAD - Lumbar Puncture For Dx - 07/29/2019 12:25 pm CLINICAL HISTORY: G40.919,R51 COMPARISON: None FINDINGS: The risks, benefits and alternatives to the procedure were explained to the patient and in formed consent obtained. The patient was placed prone into the fluoroscopy suite. The skin and subcutaneous tissues were anest hetized with lidocaine. Under fluoroscopic guidance a 22 gauge spinal needle was advanced into the th ecal sac at L2-3 level. 10 cc of clear CSF was removed and sent to the lab. Patient experienced no immediate complication IMPRESSION: Lumbar puncture
[2019-07-29 13:07] LABS: Appearance CLEAR (CLEAR); Body Fluid Source CSF; Body Fluid WBC 0 /mm^3; Color of fluid Colorless (COLORLESS)
[2019-07-29 13:27] LABS: CSF Glucose 52 mg/dL (40-70)
[2019-07-29 14:51] VITALS: BP 116/71; TEMP 98.4; O2SAT 99
== END 2019-07-29 14:15 | disposition home or self-care (01) ==
LOC: DS 09:34 → EDSTATUS 11:00 → DS 14:15
PROVIDERS: ATTEND Family Medicine
PROC: 009U3ZX Drainage of Spinal Canal, Percutaneous Approach, Diagnostic (ICD-10-PCS; principal; 2019-07-29)
DX: R51 Headache (principal); G40.909 Epilepsy, unspecified, not intractable, without status epilepticus
CPT/HCPCS: 36415; 77003; 82945; 84157; 85049; 85610; 85730; 87205; 89050

== ENCOUNTER 2019-09-16 09:59 | Emergency (ER) | payer OTHER ==
--- OUTSIDE RECORDS SUMMARY | 2019-09-16 10:01 | XMS REPORT ---
:1965 [facility] Address [address] [place] [address] Dr. Riddle. [address] [place] [id number] Care Team Providers Name Role Phone Unavailable Unavailable Unavailable Problems This patient has no known problems. Allergies, Adverse Reactions, Alerts This patient has no known allergies or adverse reactions. Medications This patient has no known medications.
[2019-09-16 10:38] LABS: Urine Blood TRACE (NEG); Urine Glucose NEGATIVE (NEG); Urine Protein NEGATIVE (NEG); Urine pH 8.5 (5.0-7.0)
[2019-09-16 10:49] LABS: Urine Bacteria <20 /HPF (<20); Urine Culture Reflex Order REFLEXED; Urine RBC <5 /HPF (NONE SEEN)
[2019-09-16 10:56] LABS: Absolute Lymphocytes (CBC) 1.4 K/uL (0.7-4.9); Basophils % 0.2 % (0-1.3); Hematocrit 40.3 % (36.0-45.0); Lymphocytes % 21.7 % (15.3-44.8); MPV 10.4 fL (7.6-11.3); RBC Red Blood Cell Count 4.58 M/uL (3.86-4.86)
[2019-09-16 11:27] LABS: ALT/SGPT 21 U/L (12-78); AST/SGOT 19 U/L (15-37); Albumin 3.7 g/dL (3.4-5.0); Alkaline Phosphatase 100 U/L (45-117); BUN Blood Urea Nitrogen 13 mg/dL (7-18); Bicarbonate 29 mmol/L (21-32); Bilirubin Direct < 0.1 mg/dL (0-0.2); Bilirubin Total 0.4 mg/dL (0.2-1.0); Glucose Level 109 mg/dL (74-106); Lipase 111 U/L (73-393); Potassium 4.1 mmol/L (3.5-5.1); Protein, Total 7.6 g/dL (6.4-8.2); Sodium Level 140 mmol/L (136-145)
--- NOTE | 2019-09-16 12:41 | RAD REPORT ---
EXAM DESCRIPTION: CTAbdomen Pelvis W Contrast - 09/16/2019 12:32 pm CLINICAL HISTORY: Abdominal pain. ABD PAIN COMPARISON: Abdomen Pelvis W Contrast dated 06/11/2017 TECHNIQUE: Biphasic CT imaging of the abdomen and pelvis was performed with 100 ml non-ionic IV cont rast. All CT scans are performed using dose optimization technique as appropriate and may include automated exposure control or mA/KV adjustment according to patient size. FINDINGS: The lung bases are clear. The liver, spleen, pancreas, adrenal glands and kidneys are within normal limits. Small cyst is seen inferior left kidney. No bowel obstruction, free air, free fluid or abscess. The appendix is normal. No evidence of signi ficant lymphadenopathy. No suspicious bony findings. IMPRESSION: No acute intra-abdominal or pelvic finding.
--- NOTE | 2019-09-16 12:44 | ER ---
Nurse's Notes [facility] Name: Brittany Schulte Age: 54 yrs Sex: Female : 1965 Arrival Date: 09/16/2019 Time: 10:01 Bed 6 Private MD: Rishi Alfaro H Diagnosis: Urinary tract infection, site not specified;Lower abdominal pain, unspecified Presentation: 09/16 10:03 Presenting complaint: Patient states: low back pain and suprapubic pain x 1 month has sv worsened the last week. Transition of care: patient was not received from another setting of care. Onset of symptoms was July 2019. Risk Assessment: Do you want to hurt yourself or someone else? Patient reports no desire to harm self or others. Care prior to arrival: None. 10:03 Method Of Arrival: Ambulatory sv 10:03 Acuity: ANNMARIE 3 sv 10:52 Initial Sepsis Screen: Does the patient meet any 2 criteria? No. Patient's initial jl7 sepsis screen is negative. Does the patient have a suspected source of infection? No. Patient's initial sepsis screen is negative. Historical: - Allergies: 10:02 Lisinopril (Cough); sv - Home Meds: 10:53 venlafaxine 37.5 mg oral cp24 1 cap once daily [Active]; Ambien 5 mg Oral tab 1 tab jl7 once daily [Active]; - PMHx: 10:02 epilepsy; Hypertension; sv - PSHx: 10:02 Brain Sx 2014; sv - Immunization history:: Adult Immunizations unknown. - Coronavirus screen:: The patient has NOT traveled to [place] in the past 14 days. Proceed with normal triage process as indicated. - Social history:: Smoking status: unknown. - Ebola Screening: : No symptoms or risks identified at this time. Screenin:30 Abuse screen: Denies threats or abuse. Denies injuries from another. Nutritional jl7 screening: No deficits noted. Tuberculosis screening: No symptoms or risk factors identified. Fall Risk IV access (20 points). Total Renteria Fall Scale indicates No Risk (0-24 pts). Assessment: 10:30 General: Appears in no apparent distress. uncomfortable, Behavior is cooperative, jl7 anxious. Pain: Complains of pain in abdomen diffusely and groin Pain currently is 9 out of 10 on a pain scale. Pain began x 1 month. Neuro: Level of Consciousness is awake, alert, obeys commands, Oriented to person, place, time, situation. Cardiovascular: Patient's skin is warm and dry. Respiratory: Airway is patent Respiratory effort is even, unlabored, Respiratory pattern is regular, symmetrical. GI: Patient currently denies diarrhea, nausea, vomiting. : Reports burning with urination. Derm: Skin is pink, warm \T\ dry. 11:30 Reassessment: Patient appears in no apparent distress at this time. No changes from jl7 previously documented assessment. Patient and/or family updated on plan of care and expected duration. Pain level reassessed. Patient is alert, oriented x 3, equal unlabored respirations, skin warm/dry/pink. 12:30 Reassessment: Patient appears in no apparent distress at this time. No changes from jl7 previously documented assessment. Patient and/or family updated on plan of care and expected duration. Pain level reassessed. Patient is alert, oriented x 3, equal unlabored respirations, skin warm/dry/pink. Vital Signs: 10:04 BP 147 / 89; Pulse 79; Resp 18; Temp 98.9(TE); Pulse Ox 97% ; Weight 62.6 kg; Height 5 sv ft. 5 in. (165.10 cm); 12:15 BP 140 / 81; Pulse 63; Resp 17; Pulse Ox 99% ; jl7 13:00 BP 141 / 80; Pulse 64; Resp 16 S; Pulse Ox 99% on R/A; jl7 10:04 Body Mass Index 22.97 (62.60 kg, 165.10 cm) sv ED Course: 10:01 Patient arrived in ED. rg4 10:01 Rishi Alfaro DO is Private Physician. rg4 10:02 Arm band placed on. sv 10:04 Triage completed. sv 10:07 Avani Schultz FNP-C is [facility]. kb 10:07 Abraham Carter MD is Attending Physician. kb 10:08 Jan Hsu RN is Primary Nurse. jl7 10:30 Patient has correct armband on for positive identification. Bed in low position. Call jl7 light in reach. Side rails up X 1. Pulse ox on. NIBP on. 10:30 Missed attempt(s): 20 gauge in left forearm. Bleeding controlled, band aid applied, jl7 catheter tip intact. 10:35 Initial lab(s) drawn, by me, sent to lab. Flu and/or RSV swab sent to lab. Inserted jl7 saline lock: 22 gauge in left antecubital area, using aseptic technique. Blood collected. 12:33 CT Abd/Pelvis - IV Contrast Only In Process Unspecified. EDMS 13:15 No provider procedures requiring assistance completed. IV discontinued, intact, jl7 bleeding controlled, No redness/swelling at site. Pressure dressing applied. Administered Medications: No medications were administered Outcome: 12:43 Discharge ordered by . kb 13:15 Discharged to home ambulatory. jl7 13:15 Condition: stable 13:15 Discharge instructions given to patient, Instructed on discharge instructions, follow up and referral plans. Demonstrated understanding of instructions, follow-up care. 13:28 Patient left the ED. jl7 Signatures: Dispatcher [employer] EDMS Avani Schultz, ASIA LONDONOP-Sandhya Reaves, RN RN Awa Odell 4 Jan Hsu RN RN jl7 Corrections: (The following items were deleted from the chart) 10:06 10:04 Pulse 79bpm; Resp 18bpm; Pulse Ox 97%; Temp 98.9F Temporal; 62.6 kg; Height 5 ft. sv 5 in.; BMI: 22.9; sv
--- NOTE | 2019-09-16 12:44 | EDPHYS ---
Physician Documentation [facility] Name: Brittany Schulte Age: 54 yrs Sex: Female : 1965 Arrival Date: 09/16/2019 Time: 10:01 Bed 6 Private MD: Rishi Alfaro H ED Physician Abraham Carter HPI: 09/16 11:10 This 54 yrs old Female presents to ER via Ambulatory with complaints of kb Urinary Problem, Low Back Pain. 11:11 The patient presents with abdominal pain in the lower abdomen. Onset: The kb symptoms/episode began/occurred 1 month(s) ago. The symptoms do not radiate. Associated signs and symptoms: Pertinent positives: dysuria, vaginal discharge. The symptoms are described as constant. Modifying factors: The symptoms are alleviated by nothing, the symptoms are aggravated by nothing. Severity of pain: At its worst the pain was mild moderate in the emergency department the pain is unchanged. The patient has not experienced similar symptoms in the past. The patient has not recently seen a physician. Pt reports lower abd pain for a month. Reports pain with urination, foul smelling urine and vaginal discharge as well. All started after a pap smear at the end of last month. Reports she now has pain from back of neck to knees as well. . Historical: - Allergies: 10:02 Lisinopril (Cough); sv - Home Meds: 10:53 venlafaxine 37.5 mg oral cp24 1 cap once daily [Active]; Ambien 5 mg Oral tab 1 tab jl7 once daily [Active]; - PMHx: 10:02 epilepsy; Hypertension; sv - PSHx: 10:02 Brain Sx 2014; sv - Immunization history:: Adult Immunizations unknown. - Coronavirus screen:: The patient has NOT traveled to [place] in the past 14 days. Proceed with normal triage process as indicated. - Social history:: Smoking status: unknown. - Ebola Screening: : No symptoms or risks identified at this time. ROS: 11:09 Constitutional: Negative for fever, chills, and weight loss, Cardiovascular: Negative kb for chest pain, palpitations, and edema, Respiratory: Negative for shortness of breath, cough, wheezing, and pleuritic chest pain, Back: Negative for injury and pain, MS/Extremity: Negative for injury and deformity, Skin: Negative for injury, rash, and discoloration, Neuro: Negative for headache, weakness, numbness, tingling, and seizure. 11:09 Abdomen/GI: Positive for abdominal pain. 11:09 : Positive for burning with urination, vaginal discharge. Exam: 11:10 Constitutional: This is a well developed, well nourished patient who is awake, alert, kb and in no acute distress. Head/Face: Normocephalic, atraumatic. ENT: Nares patent. No nasal discharge, no septal abnormalities noted. Tympanic membranes are normal and external auditory canals are clear. Oropharynx with no redness, swelling, or masses, exudates, or evidence of obstruction, uvula midline. Mucous membranes moist. Neck: Trachea midline, no thyromegaly or masses palpated, and no cervical lymphadenopathy. Supple, full range of motion without nuchal rigidity, or vertebral point tenderness. No Meningismus. Chest/axilla: Normal chest wall appearance and motion. Nontender with no deformity. No lesions are appreciated. Cardiovascular: Regular rate and rhythm with a normal S1 and S2. No gallops, murmurs, or rubs. Normal PMI, no JVD. No pulse deficits. Respiratory: Lungs have equal breath sounds bilaterally, clear to auscultation and percussion. No rales, rhonchi or wheezes noted. No increased work of breathing, no retractions or nasal flaring. Skin: Warm, dry with normal turgor. Normal color with no rashes, no lesions, and no evidence of cellulitis. MS/ Extremity: Pulses equal, no cyanosis. Neurovascular intact. Full, normal range of motion. Neuro: Awake and alert, GCS 15, oriented to person, place, time, and situation. Cranial nerves II-XII grossly intact. Motor strength 5/5 in all extremities. Sensory grossly intact. Cerebellar exam normal. Normal gait. 11:10 Abdomen/GI: Inspection: abdomen appears normal, Bowel sounds: normal, in all quadrants, Palpation: soft, in all quadrants, mild abdominal tenderness, in all quadrants. Vital Signs: 10:04 BP 147 / 89; Pulse 79; Resp 18; Temp 98.9(TE); Pulse Ox 97% ; Weight 62.6 kg; Height 5 sv ft. 5 in. (165.10 cm); 12:15 BP 140 / 81; Pulse 63; Resp 17; Pulse Ox 99% ; jl7 13:00 BP 141 / 80; Pulse 64; Resp 16 S; Pulse Ox 99% on R/A; jl7 10:04 Body Mass Index 22.97 (62.60 kg, 165.10 cm) sv MDM: 10:08 Patient medically screened. kb 11:08 Data reviewed: vital signs, nurses notes. Data interpreted: Pulse oximetry: on room air kb is 97 %. Interpretation: normal. 12:42 Counseling: I had a detailed discussion with the patient and/or guardian regarding: the kb historical points, exam findings, and any diagnostic results supporting the discharge/admit diagnosis, lab results, radiology results, the need for outpatient follow up, a family practitioner, an OB/Gyne specialist, to return to the emergency department if symptoms worsen or persist or if there are any questions or concerns that arise at home. 09/16 10:08 Order name: Urine Microscopic Only; Complete Time: 10:50 kb 09/16 10:21 Order name: Urine Dipstick--Ancillary (enter results); Complete Time: 10:40 bd 09/16 10:27 Order name: Basic Metabolic Panel; Complete Time: 11:29 kb 09/16 10:27 Order name: CBC with Diff; Complete Time: 11:06 kb 09/16 10:27 Order name: Hepatic Function; Complete Time: 11:29 kb 09/16 10:27 Order name: Lipase; Complete Time: 11:29 kb 09/16 10:08 Order name: Urine Dipstick-Ancillary (obtain specimen); Complete Time: 10:53 kb 09/16 10:27 Order name: IV Saline Lock; Complete Time: 10:53 kb 09/16 10:27 Order name: Labs collected and sent; Complete Time: 10:53 kb 09/16 10:27 Order name: Flu; Complete Time: 11:32 kb 09/16 10:50 Order name: Urine Culture EDRI 09/16 11:29 Order name: CT Abd/Pelvis - IV Contrast Only; Complete Time: 12:49 kb Administered Medications: No medications were administered Disposition: 09/17 06:51 Co-signature as Attending Physician, Abraham Carter MD I agree with the assessment and kdr plan of care. Disposition: 09/16/19 12:43 Discharged to Home. Impression: Urinary tract infection, site not specified, Lower abdominal pain, unspecified. - Condition is Stable. - Discharge Instructions: Urinary Tract Infection, Adult, [place]-ws-Ciot, Abdominal Pain, Adult, [id number]. - Prescriptions for Macrobid 100 mg Oral Capsule - take 1 capsule by ORAL route every 12 hours for 7 days; 14 capsule. - Medication Reconciliation Form, Thank You Letter, Antibiotic Education, Prescription Opioid Use form. - Follow up: Emergency Department; When: As needed; Reason: Worsening of condition. Follow up: Private Physician; When: 2 - 3 days; Reason: Recheck today's complaints, Continuance of care, Re-evaluation by your physician. Signatures: Dispatcher [employer] EDMS Avani Schultz, DYLAN-C [employer] M[employer] TENDER-Sandhya Reaves, RN RN Abraham Martinez MD MD kdr Leal, Jahala, RN RN jl7 Corrections: (The following items were deleted from the chart) 09/16 13:28 12:43 09/16/2019 12:43 Discharged to Home. Impression: Urinary tract infection, site jl7 not specified; Lower abdominal pain, unspecified. Condition is Stable. Forms are Medication Reconciliation Form, Thank You Letter, Antibiotic Education, Prescription Opioid Use. Follow up: Emergency Department; When: As needed; Reason: Worsening of condition. Follow up: Private Physician; When: 2 - 3 days; Reason: Recheck today's complaints, Continuance of care, Re-evaluation by your physician. kb
[2019-09-16 13:34] VITALS: TEMP 98.9
[2019-09-16 13:36] VITALS: O2SAT 99
[2019-09-16 13:37] VITALS: BP 141/80
== END 2019-09-16 13:28 | disposition home or self-care (01) ==
LOC: ER 09:59
DX: N39.0 Urinary tract infection, site not specified (principal); I10 Essential (primary) hypertension; G40.909 Epilepsy, unspecified, not intractable, without status epilepticus; Z88.8 Allergy status to other drugs, medicaments and biological substances
CPT/HCPCS: 87088; 85025; 87086; 80048; 36415; 80076; 83690; 87804 ×2; 74177; 99284; Q9967; 81003; 81015

== ENCOUNTER 2019-11-09 11:53 | Emergency (ER) | payer OTHER ==
--- OUTSIDE RECORDS SUMMARY | 2019-11-09 11:55 | XMS REPORT ---
:1965 Author Organization [facility] t Address [address] [place] [address] Dr. Whitlock [address] [place] [id number] Care Team Providers Name Role Phone Unavailable Unavailable Unavailable Problems This patient has no known problems. Allergies, Adverse Reactions, Alerts This patient has no known allergies or adverse reactions. Medications This patient has no known medications.
[2019-11-09 13:04] LABS: Urine Amorphous Sediment 4+ /HPF (NONE SEEN); Urine Bacteria <20 /HPF (<20); Urine Culture Reflex Order NOT NEEDED; Urine RBC <5 /HPF (NONE SEEN)
[2019-11-09 13:08] LABS: Urine Blood TRACE (NEG); Urine Glucose NEGATIVE (NEG); Urine Protein 1+ (NEG); Urine Specific Gravity 1.015 (1.005-1.030); Urine pH >8.5 (5.0-7.0)
[2019-11-09 13:10] LABS: Absolute Lymphocytes (CBC) 1.4 K/uL (0.7-4.9); Basophils % 0.5 % (0-1.3); Hematocrit 41.3 % (36.0-45.0); Lymphocytes % 33.4 % (15.3-44.8); MPV 12.2 fL (7.6-11.3); RBC Red Blood Cell Count 4.64 M/uL (3.86-4.86)
[2019-11-09 13:27] LABS: ALT/SGPT 40 U/L (12-78); AST/SGOT 24 U/L (15-37); Albumin 4.1 g/dL (3.4-5.0); Alkaline Phosphatase 97 U/L (45-117); BUN Blood Urea Nitrogen 15 mg/dL (7-18); Bicarbonate 31 mmol/L (21-32); Bilirubin Direct 0.1 mg/dL (0-0.2); Bilirubin Total 0.5 mg/dL (0.2-1.0); Glucose Level 88 mg/dL (74-106); Lipase 102 U/L (73-393); Potassium 5.1 mmol/L (3.5-5.1); Protein, Total 7.6 g/dL (6.4-8.2); Sodium Level 141 mmol/L (136-145)
--- NOTE | 2019-11-09 14:05 | RAD REPORT ---
EXAM DESCRIPTION: CT - Abdomen Pelvis W Contrast - 11/09/2019 1:50 pm CLINICAL HISTORY: ABD PAIN, dysuria COMPARISON: Abdomen Pelvis W Contrast dated 09/16/2019; Abdomen Pelvis W Contrast dated 7 TECHNIQUE: Biphasic, helical CT imaging of the abdomen and pelvis was performed following 100 ml non -ionic IV contrast. No oral contrast administered. All CT scans are performed using dose optimization technique as appropriate and may include automated exposure control or mA/KV adjustment according to patient size. FINDINGS: No suspicious findings in the lung bases. The liver, spleen, and pancreas show no suspicious findings. Gallbladder and biliary tree are also wi thout suspicious finding. Symmetric renal function is seen with no hydronephrosis or suspicious renal mass. No pyelonephritis o r acute parenchymal process. Bilateral renal cysts are unchanged from prior imaging. No adrenal abnor malities. Urinary bladder shows no wall thickening or abnormal enhancement. No uterine abnormality. O varies are isodense to the adjacent on opacified bowel. No suspicion for a primary ovarian process. No dilated bowel loops or bowel wall thickening. Minimal diverticulosis present in the sigmoid colon. Moderately large stool volume fills the colon from cecum to splenic flexure. The appendix is normal. No active colon process. No free air, free fluid or inflammatory stranding. No mass or bulky lympha denopathy. A very small 12 mm fat only umbilical hernia present and stable. No acute bone finding. Degenerative changes are present. Sclerotic foci in several vertebrae have not changed from 2017. IMPRESSION: No pyelonephritis or acute renal parenchymal finding. No CT evidence for cystitis. There are no active findings evident. No acute GI or SITE ENGINEER process. No acute finding is evident.
--- NOTE | 2019-11-09 14:19 | EDPHYS ---
Physician Documentation [facility] Name: Brittany Schulte Age: 54 yrs Sex: Female : 1965 Arrival Date: 11/09/2019 Time: 11:54 Bed 13 Private MD: Rishi Alfaro H ED Physician Dean Zacarias HPI: 11/08 12:09 This 54 yrs old Female presents to ER via Unassigned with complaints of rn Abdominal Pain, Low Back Pain. 12:30 The patient presents with pain that is acute. The symptoms are located in the low back. rn The pain does not radiate. Onset: The symptoms/episode began/occurred yesterday. Modifying factors: The patient symptoms are alleviated by nothing, the patient symptoms are aggravated by urinating. Severity of symptoms: At their worst the symptoms were mild, in the emergency department the symptoms are unchanged. The patient has experienced similar episodes in the past. The patient has not recently seen a physician. Reports feels like has another UTI, reports 2 days of suprapubic pain and lower back pain, + dysuria and increased frequency. No blood. No fever/vomiting/diarrhea. . Historical: - Allergies: 12:11 Lisinopril (Cough); iw - Home Meds: 12:11 Ambien 5 mg Oral tab 1 tab once daily [Active]; venlafaxine 37.5 mg Oral cp24 1 cap iw once daily [Active]; - PMHx: 12:11 epilepsy; Hypertension; iw - PSHx: 12:11 Brain Sx 2014; iw - Immunization history:: Adult Immunizations unknown. - Social history:: Smoking status: Patient denies any tobacco usage or history of. - Family history:: not pertinent. - Hospitalizations: : No recent hospitalization is reported. ROS: 12:30 Constitutional: Negative for fever, chills, and weight loss, Eyes: Negative for injury, rn pain, redness, and discharge, Neck: Negative for injury, pain, and swelling, Cardiovascular: Negative for chest pain, palpitations, and edema, Respiratory: Negative for shortness of breath, cough, wheezing, and pleuritic chest pain, Abdomen/GI: Negative for nausea, vomiting, diarrhea, and constipation, Back: + low back pain MS/Extremity: Negative for injury and deformity, Skin: Negative for injury, rash, and discoloration, Neuro: Negative for headache, weakness, numbness, tingling, and seizure. Exam: 12:30 Constitutional: This is a well developed, well nourished patient who is awake, alert, rn and in no acute distress. Cardiovascular: Regular rate and rhythm. No pulse deficits. Respiratory: No increased work of breathing, no retractions or nasal flaring. Abdomen/GI: soft, mild suprapubic tenderness, no rebound Back: No spinal or CVAT Skin: Warm, dry with normal turgor. Normal color with no rashes, no lesions, and no evidence of cellulitis. MS/ Extremity: Pulses equal, no cyanosis. Neurovascular intact. Full, normal range of motion. Equal circumference. Neuro: Awake and alert, GCS 15, oriented to person, place, time, and situation. Cranial nerves II-XII grossly intact. Motor strength 5/5 in all extremities. Sensory grossly intact. Cerebellar exam normal. Normal gait. 14:16 ECG was reviewed by the Attending Physician. rn Vital Signs: 12:08 BP 164 / 98; Pulse 80; Resp 16; Temp 98.7(O); Pulse Ox 98% on R/A; iw 13:00 BP 149 / 93; Pulse 66; Resp 17; Pulse Ox 100% ; rb1 14:07 BP 137 / 73; Pulse 65; Resp 14; Pulse Ox 100% on R/A; ls4 MDM: 12:03 Patient medically screened. rn 14:16 Differential diagnosis: UTI, viral process, MSK pain, UTI, referred GI process. Data rn reviewed: vital signs, nurses notes, lab test result(s), EKG, radiologic studies. Test interpretation: by ED physician or midlevel provider: ECG. 14:17 Counseling: I had a detailed discussion with the patient and/or guardian regarding: the rn historical points, exam findings, and any diagnostic results supporting the discharge/admit diagnosis, lab results, radiology results, the need for outpatient follow up, to return to the emergency department if symptoms worsen or persist or if there are any questions or concerns that arise at home. Special discussion: Based on the patient's Hx, exam, and Dx evaluation, there is no indication for emergent surgery or inpatient Tx. It is understood by the patient/guardian that if the Sx's persist or worsen they need to return immediately for re-evaluation. I discussed with the patient/guardian in detail that at this point there is no indication for admission to the hospital. It is understood, however, that if the symptoms persist or worsen the patient needs to return immediately for re-evaluation. ED course: No acute findings in bloodwork/UA/CT abdomen and pelvis. Will dc home with return precautions. Micro does not reveal signs of UTI.. 14:19 ED course: Reports is seeing GI for abd pain and issues, they have recommended scope rn but has not done yet, recommend going back to GI doctor for further studies and procedures given no acute findings here. . 11/08 12:08 Order name: Urine Microscopic Only; Complete Time: 13:29 11/08 12:08 Order name: Urine Culture rn 11/08 12:24 Order name: Urine Dipstick--Ancillary (enter results); Complete Time: 13:29 11/08 12:24 Order name: Urine --Ancillary (enter results); Complete Time: 13:29 11/08 12:37 Order name: Basic Metabolic Panel; Complete Time: 13:29 rn 11/08 12:37 Order name: CBC with Diff; Complete Time: 13:29 rn 11/08 12:08 Order name: Urine Dipstick-Ancillary (obtain specimen); Complete Time: 12:19 rn 11/08 12:37 Order name: Hepatic Function; Complete Time: 13:29 rn 11/08 12:37 Order name: Lipase; Complete Time: 13:29 rn 11/08 12:37 Order name: IV Saline Lock; Complete Time: 14:22 rn 11/08 12:37 Order name: Labs collected and sent; Complete Time: 14:22 rn 11/08 12:37 Order name: CT Abd/Pelvis - IV Contrast Only; Complete Time: 14:15 rn 11/08 13:40 Order name: EKG; Complete Time: 13:41 rn 11/08 13:40 Order name: EKG - Nurse/Tech; Complete Time: 14:07 rn EC:16 Rate is 60 beats/min. Rhythm is regular. QRS [place] is Normal. [place] interval is normal. QRS rn interval is normal. QT interval is normal. No Q waves. T waves are Normal. No ST changes noted. Clinical impression: Normal ECG. Interpreted by me. Reviewed by me. Administered Medications: No medications were administered Disposition: 11/09/19 14:19 Discharged to Home. Impression: Lower abdominal pain, unspecified, Low back pain. - Condition is Stable. - Discharge Instructions: Abdominal Pain, Adult, Back Pain, Adult, Pain Without a Known Cause. - Medication Reconciliation Form, Thank You Letter, Antibiotic Education, Prescription Opioid Use form. - Follow up: Private Physician; When: As needed; Reason: Recheck today's complaints, Re-evaluation by your physician. - Problem is new. - Symptoms have improved. Signatures: Dispatcher [employer] EDMichelle Jara RN RN iw Dean Zacarias MD MD rn Alana Rodriguez RN RN rb1 Corrections: (The following items were deleted from the chart) 14:33 14:19 11/09/2019 14:19 Discharged to Home. Impression: Lower abdominal pain, rb1 unspecified; Low back pain. Condition is Stable. Forms are Medication Reconciliation Form, Thank You Letter, Antibiotic Education, Prescription Opioid Use. Follow up: Private Physician; When: As needed; Reason: Recheck today's complaints, Re-evaluation by your physician. Problem is new. Symptoms have improved. rn
--- NOTE | 2019-11-09 14:19 | ER ---
Nurse's Notes [facility] Name: Brittany Schulte Age: 54 yrs Sex: Female : 1965 Arrival Date: 11/09/2019 Time: 11:54 Bed 13 Private MD: Rishi Alfaro H Diagnosis: Lower abdominal pain, unspecified;Low back pain Presentation: 11/08 12:08 Chief complaint: Patient states: has had abd pain, burning with urination and back pain iw X 6 days, worse yesterday. Coronavirus screen: Proceed with normal triage. Patient denies a cough. Patient denies shortness of breath or difficulty breathing. Patient denies measured and/or subjective temperature greater than 100.4F prior to today's visit. Patient denies travel on a cruise ship or to a country the [facility] currently lists as an affected area. Patient denies contact with known and/or suspected case of COVID-19. Ebola Screen: Patient negative for fever greater than or equal to 101.5 degrees Fahrenheit, and additional compatible Ebola Virus Disease symptoms Patient denies exposure to infectious person. Patient denies travel to an Ebola-affected area in the 21 days before illness onset. No symptoms or risks identified at this time. Initial Sepsis Screen: Does the patient meet any 2 criteria? No. Patient's initial sepsis screen is negative. Does the patient have a suspected source of infection? No. Patient's initial sepsis screen is negative. Risk Assessment: Do you want to hurt yourself or someone else? Patient reports no desire to harm self or others. Onset of symptoms was November 03, 2019. 12:08 Method Of Arrival: Ambulatory iw 12:08 Acuity: ANNMARIE 3 iw Historical: - Allergies: 12:11 Lisinopril (Cough); iw - Home Meds: 12:11 Ambien 5 mg Oral tab 1 tab once daily [Active]; venlafaxine 37.5 mg Oral cp24 1 cap iw once daily [Active]; - PMHx: 12:11 epilepsy; Hypertension; iw - PSHx: 12:11 Brain Sx 2014; iw - Immunization history:: Adult Immunizations unknown. - Social history:: Smoking status: Patient denies any tobacco usage or history of. - Family history:: not pertinent. - Hospitalizations: : No recent hospitalization is reported. Screenin:20 Abuse screen: Denies threats or abuse. Nutritional screening: No deficits noted. rb1 Tuberculosis screening: No symptoms or risk factors identified. Fall Risk None identified. Assessment: 12:20 General: Appears in no apparent distress. comfortable, Behavior is calm, cooperative, rb1 Denies fever. Pain: Complains of pain in lower abdominal pain and back pain Pain currently is 9 out of 10 on a pain scale. Pain began x 6 days. Neuro: Level of Consciousness is awake, alert, obeys commands, Oriented to person, place, time, situation. Cardiovascular: Capillary refill < 3 seconds is brisk in bilateral fingers. Respiratory: Airway is patent Respiratory effort is even, unlabored, Respiratory pattern is regular, symmetrical. GI: Bowel sounds present X 4 quads. Abd is soft. : Reports burning with urination. Derm: Skin is pink, warm \T\ dry. 13:20 Reassessment: Patient appears in no apparent distress at this time. No changes from rb1 previously documented assessment. 14:20 Reassessment: Patient appears in no apparent distress at this time. Patient and/or rb1 family updated on plan of care and expected duration. Pain level reassessed. Patient is alert, oriented x 3, equal unlabored respirations, skin warm/dry/pink. Vital Signs: 12:08 BP 164 / 98; Pulse 80; Resp 16; Temp 98.7(O); Pulse Ox 98% on R/A; iw 13:00 BP 149 / 93; Pulse 66; Resp 17; Pulse Ox 100% ; rb1 14:07 BP 137 / 73; Pulse 65; Resp 14; Pulse Ox 100% on R/A; ls4 ED Course: 11:54 Patient arrived in ED. ag5 11:55 Rishi Alfaro DO is Private Physician. ag5 12:03 Dean Zacarias MD is Attending Physician. rn 12:10 Triage completed. iw 12:16 Michelle Siddiqui, RN is Primary Nurse. iw 12:20 Patient has correct armband on for positive identification. Bed in low position. Call rb1 light in reach. Side rails up X 1. Pulse ox on. NIBP on. 12:21 Urine Culture Sent. kj1 12:21 Urine Microscopic Only Sent. kj1 12:26 Arm band placed on right wrist. rb1 12:43 Radiology exam delayed due to lab results not completed at this time. (BUN/Creatinine). bq 13:00 Inserted saline lock: 22 gauge in left antecubital area, using aseptic technique. kj1 13:00 Initial lab(s) drawn, by me, sent to lab. kj1 13:18 Radiology exam delayed due to lab results not completed at this time. (BUN/Creatinine). mw3 13:49 CT completed. Patient tolerated procedure well. Patient moved back from CT. bq 13:50 CT Abd/Pelvis - IV Contrast Only In Process Unspecified. EDMS 14:08 No provider procedures requiring assistance completed. ls4 14:30 IV discontinued, intact, bleeding controlled, No redness/swelling at site. Pressure rb1 dressing applied. Administered Medications: No medications were administered Outcome: 14:19 Discharge ordered by MD. rn 14:30 Discharged to home ambulatory. rb1 14:30 Condition: stable 14:30 Discharge instructions given to patient, Instructed on discharge instructions, follow up and referral plans. Demonstrated understanding of instructions, follow-up care, Prescriptions given X none 14:33 Patient left the ED. rb1 Signatures: Dispatcher [employer] EDMS Montse Gracia Michelle Siddiqui, JENNY RN iw Dean Zacarias MD MD rn Barber, Rebecca, RN RN rb1 Rocío Nunes mw3 Janette Leyva, JENNY RN ls4 Eliceo Hardy ag5 Crystal Schultz kj1 Corrections: (The following items were deleted from the chart) 13:07 13:06 Initial lab(s) drawn, by me, sent to lab. kj1 kj1
[2019-11-09 14:40] VITALS: TEMP 98.7
[2019-11-09 14:43] VITALS: O2SAT 100
[2019-11-09 14:44] VITALS: BP 137/73
--- NOTE | 2019-11-10 16:25 | EKG ---
Test Date: 2019-11-09 Test Time: 14:02:52 Canteen Manager: BECKI MEASUREMENT RESULTS: Intervals: Rate: 60 SC: 190 QRSD: 66 QT: 410 QTc: 410 Donaldson: P: 70 SC: 190 QRS: 54 T: 43 INTERPRETIVE STATEMENTS: Normal sinus rhythm Septal infarct, age undetermined Abnormal ECG Compared to ECG 06/13/2019 20:10:16 Myocardial infarct finding now present Electronically Signed On 11-10-19 16:22:29 CDT by Lavelle Cortes
== END 2019-11-09 14:33 | disposition home or self-care (01) ==
LOC: ER 11:53
DX: R10.30 Lower abdominal pain, unspecified (principal); I10 Essential (primary) hypertension; G40.909 Epilepsy, unspecified, not intractable, without status epilepticus; Z88.8 Allergy status to other drugs, medicaments and biological substances
CPT/HCPCS: 93005; 87088; 85025; 87086; 80048; 36415; 81025; 80076; 83690; 74177; Q9967; 81003; 81015; 99284

== ENCOUNTER 2020-11-01 11:04 | Emergency (ER) | payer OTHER ==
--- OUTSIDE RECORDS SUMMARY | 2020-11-01 11:09 | XMS REPORT | Continuity of Care Document ---
:1965 Author Organization [facility] t Address [address] [place] [address] Care Team Providers Name Role Phone Doctor Unassigned, Name Attending Clinician Unavailable Yarelis Attending Clinician Juarez Horn Attending Clinician Yarelis Admitting Clinician Juarez Horn Admitting Clinician Problems Condition Condition Condition Status Onset Resolution Last Treating Co mments Source Name Details Category Date Date Treatment Clinician Date LOCALIZATI Diagnosis Active 2015-08-16 Memoria ON RELATED 03-17 06:58:00 l EPILEPSY 00:00: [place] AND EPILEP LOCALIZATI 00 ON RELATED EPILEPSY AND EPILEP Active 03/17/2015 [facility] LOCALIZATI Condition Active 2015-03-08 Memoria ON-RELATED 12-10 13:44:01 l (FOCAL) 00:00: [place] (PARTIAL) LOCALIZATI 00 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, WITH WITH COMPLEX INTRACTABL PARTIAL E EPILEPSY SEIZURES, WITH INTRACTABL E EPILEPSY Active 12/10/2014 Condition [facility] SEIZURES Diagnosis Active 2015-01-20 M emoria 12-10 10:52:00 l SEIZURES 00:00: Lucian n 00 Active 12/10/2014 [facility] INTRACTABL Diagnosis Active 2014-11-19 Memoria E SEIZURES 11-06 08:17:00 l 00:00: [place] INTRACTABL 00 E SEIZURES Active 11/06/2014 [facility] Final: Problem 2015-01-24 Memor ia 00:21:56 l Final: [place] 01/24/2015 [facility] Seizure Problem Resolve 2015-08-19 Mem oria (finding) d 01:03:35 l Seizure [place] (finding) Resolved Problem 08/19/2015 [facility] PSYMOTR Diagnosis Active 2015-01-20 Me moria EPIL W 10:52:00 l INTR EPIL PSYMOTR Herm francien EPIL W INTR EPIL Active [facility] FEBRILE Diagnosis Active 2014-11-19 Me moria CONVULSION 08:17:00 l S NOS FEBRILE [place] CONVULSION S NOS Active [facility] Allergies, Adverse Reactions, Alerts This patient has no known allergies or adverse reactions. Social History Social Habit Start Date Stop Date Quantity Comments Source Social History 2014-11-15 2014-11-15 [facility] candy 19:29:31 19:29:31 Medications Ordered Filled Start Stop Current Ordering Indication Dosage Frequency Signature Comments Components Source Medication Medication Date Date Medication? Clinician (SIG) Name Name Sodium No 1,000 mL, Memori a Chloride 01-21 1,000 l 0.154 15:15: ml/hr, [place] MEQ/ML 00 Infuse Injectable Over: 1 Solution hr, Route: IV, 1,000, Drug form: INJ, ONCE, Priority: STAT, Dosing Weight 70 kg, Start date: 01/21/15 10:15:00, Duration: 1 doses or times, Stop date: 01/21/15 10:15:00 Milk of Yes 2.4 gm = Memori a Magnesia 8% 01-21 30 mL, PO, l oral 14:23: Daily, PRN [place] suspension 00 Constipati on, X 10 day, # 300 mL, 0 Refill(s) Citrate of No Notes: Memor ia Magnesia 01-21 (Same as: l 13:11: Citrate of [place] Magnesia) magnesium No Notes: Memori a citrate 01-21 (Same as: l 10:58: Citrate of [place] Magnesia) Acetaminoph Yes 1 tab, PO, Memoria en 300 MG / 01-21 Q4H, PRN l Codeine 10:57: Pain, X 10 Herm francine Phosphate 00 day, # 60 30 MG Oral tab, 0 Tablet Refill(s) [Tylenol with Codeine #3] heparin No Notes: Memoria sodium, 01-21 porcine l porcine 05:00: heparin [place] 2500 UNT/ML 00 Injectable Solution levETIRAcet No Notes: Huang bj am 01-20 (Same l 02:00: as:Keppra) [place] 00 Divalproex No Notes: Memor ia Sodium 500 01-20 (Same as: l MG Enteric 02:00: Depakote Her jc Coated Delayed Tablet Release) [Depakote] Do not confuse with the extended-r elease tablet. Delayed absorption enteric coated tablet. Do not crush Ondansetron No 4 mg, Memor ia 01-19 Route: l 18:19: IVP, ONCE, [place] 00 Dosing Weight 70, kg, PRN Nausea & Vomiting, Start date: 01/19/15 13:19:00 Naloxone No 0.04 mg, Memor ia 01-19 Route: l 18:19: IVP, [place] 00 Q2MIN, Dosing Weight 70, kg, PRN Narcotic Reversal, Start date: 01/19/15 13:19:00, Duration: 8 doses or times, Stop date: Limited # of times Flumazenil No 0.2 mg, Huang bj 01-19 Route: l 18:19: IVP, PRN, [place] 00 Dosing Weight 70, kg, PRN Benzodiaze pine Reversal, Initial dose, Start date: 01/19/15 13:19:00, Duration: 30 day, Stop date: 02/18/15 13:18:00 Hydromorpho No 0.5 mg, Mem oria ne 01-19 Route: l 18:19: IVP, [place] 00 Q5Min, Dosing Weight 70, kg, PRN Pain Score 7-10, Start date: 01/19/15 13:19:00, Duration: 4 doses or times, Stop date: Limited # of times Keppra No Notes: Memoria 6-30 Same as l 18:04: Keppra [place] 00 Mix with 100 mL NS, LR or D5W MEDICATION WASTE Product Size: 500 mg Product Wasted: ___ mg Dexamethaso No Notes: Huang bj ne 6-30 Concentrat l 17:00: ion: [place] 00 4mg/ml Docusate No Notes: Memoria 6-30 (Same as: l 14:00: Colace) [place] 00 (Do Not Crush) senna 8.6 No Notes: Memori a mg oral 6-30 (Same as: l tablet 14:00: Senokot) [place] 00 Famotidine No Notes: Memor ia 6-30 (Same as: l 14:00: Pepcid) [place] 00 Can be dilute in 5-10cc NS IVP: Slow IV push over at least 2 minutes. Ancef No 2 gm, Memoria 6-30 Route: l 13:40: IVPB, [place] 00 ONCE, Dosing Weight 70, kg, Start date: 01/19/15 8:40:00, Duration: 1 doses or times, Stop date: 01/19/15 8:40:00 Cefazolin No Notes: Memori a 6-30 (Same As: l 12:00: Ancef, [place] 00 Kefzol) Cefazolin FOR IV SET ONLY MEDICATION WASTE Product Size: 1000 mg Product Wasted: ___ mg Vancomycin No 2000 mg: Me moria 6-30 infuse l 12:00: over 2.5 [place] 00 hours MEDICATION WASTE Product Size: 1000 mg Product Wasted: ___ mg Regular No 60 Memoria Insulin, 6-30 units) l Human 100 11:36: Stable for He rmann UNT/ML 00 28 days at Injectable room Solution temperatur e Expires in days from ____Date Dextrose No 6.25 gm, Memor ia 50% Syringe 01-19 12.5 mL, l 11:36: Route: [place] 00 IVP, Drug Form: INJ, Dosing Weight 70, kg, PRN, PRN Abnormal Lab Result, Start date: 01/19/15 6:36:00, Duration: 30 day, Stop date: 07/30/15 6:35:00 Ondansetron No Notes: Huang bj 4 MG 6-30 (Same as: l Disintegrat 11:34: Zofran Herm francine ing Tablet 00 ODT) Ondansetron No Notes: Huang bj 6-30 (Same as: l 11:34: Zofran) [place] 00 MEDICATION WASTE Product Size: 4 mg Product Wasted: ___ mg NS + KCL No Notes: Memoria 20mEq/L 6-30 PREMIX IV l 1000ml 11:34: - Do Not [place] (Premix) 00 Alter 1,000 mL Acetaminoph No Notes: Do M emoria en 6-30 not exceed l 11:32: 4 gm/day. [place] 00 (Same as: Tylenol) Acetaminoph No Notes: Huang bj en 325 MG / 6-30 (Same as: l Hydrocodone 11:32: [place] nn Bitartrate 00 325/5) Do 5 MG Oral not exceed Tablet 4gm/day of [[place] acetaminop 5/325] hen. Morphine No Notes: Memoria 6-30 (Same l 11:32: as:MORPhin [place] 00 e Sulfate) Hydralazine No Notes: Huang bj 6-30 (Same as: l 11:32: Apresoline [place] 00 ) Push over 5 minutes LEVETIRACET Yes 1 daily Mem oria AM ER 750 5-21 l MG 00:00: [place] [id number] 00 DEPAKOTE Yes 1 po bid Memor ia 500 MG TBEC 5-21 l 00:00: [place] 00 DEPAKOTE Yes 1 po bid Memor ia 500 MG TBEC 5-21 l 00:00: [place] 00 Divalproex No Notes: Memor ia Sodium 500 4-30 (Same as: l MG Enteric 15:05: Depakote Her jc Coated 00 Delayed Tablet Release) Do not confuse with the extended-r elease tablet. Delayed absorption enteric coated tablet. Do not crush Keppra XR No Keppra XR Mem oria 750mg 4-28 750mg l tablet 02:00: tablet, [place] 00 750 mg, Drug form: MISC, Route: PO, Bedtime, 11/16/14 21:00:00, Duration: 30 day, Stop date: 12/15/14 21:00:00 Keppra XR No 750 mg, Memor ia -27 Route: PO, l 14:00: Drug form: [place] 00 ERTAB, Daily, Dosing Weight 70.455, kg, Start date: 11/16/14 9:00:00, Duration: 30 day, Stop date: 12/15/14 9:00:00 Divalproex No 500 mg, 1 Me moria Sodium 500 4-27 tab, l MG Enteric 14:00: Route: PO, H ermann Coated 00 Drug form: Tablet ECTAB, [Depakote] Q12H, Dosing Weight 70.455, kg, Start date: 11/16/14 9:00:00, Duration: 30 day, Stop date: 12/15/14 21:00:00 24 HR Yes 750 mg = 1 Memori a Levetiracet 4-26 tab, PO, l am 750 MG 17:55: Daily [place] Extended 00 Release Tablet [Keppra] Levetiracet No 750 mg = 1 Memoria am 750 MG 4-26 tab, PO, l Oral Tablet 16:51: Bedtime, 0 [place] [Keppra] 00 Refill(s) Divalproex Yes 500 mg = 1 M emoria Sodium 500 4-26 tab, PO, l MG Enteric 16:51: BID, 0 [place] nn Coated 00 Refill(s) Tablet [Depakote] Saline No Notes: Memoria Flush 0.9% 4-26 (Same as: l 14:00: BD [place] 00 Posiflush) Saline No Notes: Memoria Flush 0.9% 4-26 (Same as: l 13:32: BD [place] 00 Posiflush) Vital Signs Vital Name Observation Time Observation Value Comments Source Weight 2015-03-08 18:44:01 [facility] Height 2015-03-08 18:44:01 [facility] Temperature Oral (F) 2015-03-08 18:44:01 98.0 F [facility] Heart Rate 2015-03-08 18:44:01 [facility] [place] Systolic (mm Hg) 2015-03-08 18:44:01 Huang rial [place] Diastolic (mm Hg) 2015-03-08 18:44:01 Mem orial [place] Weight 2015-02-01 20:09:20 [facility] [place] Height 2015-02-01 20:09:20 [facility] [place] Temperature Oral (F) 2015-02-01 20:09:20 97.6 F [facility] [place] Heart Rate 2015-02-01 20:09:20 [facility] [place] Systolic (mm Hg) 2015-02-01 20:09:20 Huang rial [place] Diastolic (mm Hg) 2015-02-01 20:09:20 Mem orial [place] Respitory Rate 2015-01-21 15:09:00 Memori al [place] Systolic (mm Hg) 2015-01-21 15:09:00 Huang rial [place] Diastolic (mm Hg) 2015-01-21 15:09:00 Mem orial [place] Heart Rate 2015-01-21 15:09:00 [facility] [place] Respitory Rate 2015-01-21 15:00:00 Memori al [place] Heart Rate 2015-01-21 15:00:00 [facility] [place] Systolic (mm Hg) 2015-01-21 15:00:00 Huang rial [place] Diastolic (mm Hg) 2015-01-21 15:00:00 Mem orial [place] Systolic (mm Hg) 2015-01-21 14:50:00 Huang rial [place] Diastolic (mm Hg) 2015-01-21 14:50:00 Mem orial [place] Respitory Rate 2015-01-21 14:50:00 [facility] [place] Heart Rate 2015-01-21 14:50:00 [facility] [place] Temperature Oral (F) 2015-01-21 13:00:00 98.1 F [facility] [place] Temperature Oral (F) 2015-01-21 09:00:00 97 F [facility] [place] Temperature Oral (F) 2015-01-21 05:00:00 98 F [facility] [place] Height 2015-01-19 11:57:00 162.56 cm [facility] [place] Weight 2015-01-19 11:57:00 [facility] [place] BMI Calculated 2015-01-19 11:57:00 Mem[facility] al [place] Height 2015-01-07 20:38:00 162.56 cm [facility] [place] BMI Calculated 2015-01-07 20:38:00 [facility] [place] Weight 2015-01-07 20:38:00 [facility] [place] Weight 2014-12-10 20:55:49 [facility] [place] Height 2014-12-10 20:55:49 [facility] [place] Heart Rate 2014-12-10 20:55:49 [facility] [place] Systolic (mm Hg) 2014-12-10 20:55:49 Huang rial [place] Diastolic (mm Hg) 2014-12-10 20:55:49 Mem orial [place] Temperature Oral (F) 2014-11-20 13:32:00 97.8 F [facility] [place] Heart Rate 2014-11-20 13:32:00 [facility] [place] Respitory Rate 2014-11-20 13:32:00 [facility] [place] Systolic (mm Hg) 2014-11-20 13:32:00 Huang rial [place] Diastolic (mm Hg) 2014-11-20 13:32:00 Mem o[facility] [place] Heart Rate 2014-11-20 00:45:00 [facility] [place] Temperature Oral (F) 2014-11-20 00:45:00 97.3 F [facility] [place] Systolic (mm Hg) 2014-11-20 00:45:00 Huang rial [place] Diastolic (mm Hg) 2014-11-20 00:45:00 Mem orial [place] Respitory Rate 2014-11-20 00:45:00 [facility] [place] Temperature Oral (F) 2014-11-19 13:47:00 98.1 F [facility] [place] Systolic (mm Hg) 2014-11-19 13:47:00 Huang rial [place] Diastolic (mm Hg) 2014-11-19 13:47:00 Mem orial [place] Respitory Rate 2014-11-19 13:47:00 [facility] [place] Heart Rate 2014-11-19 13:47:00 [facility] [place] Weight 2014-11-15 13:44:00 [facility] [place] Height 2014-11-15 13:44:00 162.56 cm [facility] [place] BMI Calculated 2014-11-15 13:44:00 [facility] [place] Procedures This patient has no known procedures. Encounters Start End Encounter Admission Attending Care Care Encounter Source Date/Time Date/Time Type Type Clinicians Facility Department ID 2019-02-03 2019-02-03 Mary Grace RUEDA [id number] 00:00:00 00:00:00 Only Unassigned, NITESH [id number] [place] [facility] [id number] 2015-08-16 2015-08-16 Outpatient Yarelis, [facility] [id number] 06:50:00 23:59:00 Jean-Pierre 2015-01-19 2015-01-21 Outpatient Yarelis, [facility] [id number] 05:45:00 11:25:00 Jean-Pierre 2014-11-15 2014-11-20 Outpatient Kory, [facility] [id number] 08:35:00 09:35:00 Erik 00 Juarez Results Test Description Test Time Test Comments Results Result Comments Source CHEM PANEL 2015-01-20 155 [facility] [place] [facility] 06:02:00 CHEM PANEL 2015-01-20 14.1 [facility] [place] [facility] 06:02:00 HEMATOLOGY 2015-01-20 0.2 [facility] [place] [facility] 06:02:00 HEMATOLOGY 2015-01-20 90.3 [facility] [place] nn 06:02:00 HEMATOLOGY 2015-01-20 1.8 [facility] [place] nn 06:02:00 HEMATOLOGY 2015-01-20 0.1 [facility] [place] [facility] 06:02:00 HEMATOLOGY 2015-01-20 7.6 [facility] [place] [facility] 06:02:00 HEMATOLOGY 2015-01-20 0.7 [facility] [place] nn 06:02:00 HEMATOLOGY 2015-01-20 7.8 [facility] [place] nn 06:02:00 HEMATOLOGY 2015-01-20 12.9 [facility] [place] nn 06:02:00 HEMATOLOGY 2015-01-20 30.9 [facility] [place] nn 06:02:00 HEMATOLOGY 2015-01-20 92.2 [facility] [place] nn 06:02:00 HEMATOLOGY 2015-01-20 06:02:00 Test Item Value Reference Range Interpretation Comme nts MCH (test code = MCH) 31.5 pg 27.0-31.0 [facility] EuckqzvFIHCHXYVDD5281-45-68 06:02:0034.2[facility]ann[facility] 2015-01-20 06:02:15906Znnjtuic ZveylpeTKKVNEXIEJ9708-44-37 06:02:009.9[facility] KnitcbcNHELIQJWJK9146-63-73 06:02:0010.6[facility] QghersrHIRBUZTQLR1042-03-86 06:02:003.35[facility] XnumhmjURKMSZKUDL2069-06-47 06:02:008.5[facility] [place] WQQASOUPRD4343-84-75 06:02:001.10[facility] CrvmodkEYGQJMMFXN5527-37-92 06:02:00 Test Item Value Reference Range Interpretation Comments PTT (test code = PTT) 27.4 s 22.9-35.8 [facility] XjfdegrPYCITTVMVM0019-12-35 06:02:00 Test Item Value Reference Range Interpretation Comments PT (test code = PT) 14.3 s 12.0-14.7 [facility]ann[facility] [id number] 06:02:0074[facility]annCHEM PANEL 2015-01-20 06:02:74240Mbsvpodl HermannCHEM YZYQC4833-30-61 06:02:0022[facility]annCHE[facility] CNALJ1826-41-54 06:02:004.1[facility]annCHE[facility] RCERM6651-98-90 06:02:19916Eofxlnas HermannCHEM GFWXY4921-91-80 06:02:000.9[facility]annCHE[facility] ERWUT3794-79-87 06:02:0012[facility]ann[facility] GPYXH4327-17-44 06:02:009.1 [facility] IfmvxqbVWMQZDFDNJ9350-82-67 17:01:00Negative *NA*(01/19/15 12:01 PM) [facility] JQOAFAH5238-69-95 12:16:00Negative (01/19/15 7:16 AM) [facility] MXEJIKO6847-88-15 11:26:00Product available (01/19/15 6:26 AM)[facility] ZEJEC0201-59-68 20:30:000.6[facility]annCHE[facility] PCNDX7659-22-23 20:30:0014[facility]ann[facility] JUBPQ5152-42-92 20:30:0031 [facility] EIHSD9757-59-46 20:30:53616Wzmbdjmg HermannCHEM PANEL 2015-01-07 20:30:004.4[facility]ann[facility] KPWSH3977-09-73 20:30:47683Anuvsijs HermannCHEM PANWQ6713-44-30 20:30:007.6[facility]annCHE[facility] PHUXG6493-63-38 20:30:009.6[facility]ann[facility] KXMJZ8616-06-80 20:30:0098[facility]ann[facility] PTHIY7456-47-65 20:30:0012.4[facility]annCHE[facility] WVSMK6167-47-70 20:30:001.3 [facility]ann[facility] EDMGI6201-53-55 20:30:003.3[facility]annCHEM PANEL 2015-01-07 20:30:0023[facility] QavkhipOREMEDWWKB1937-93-48 20:30:000.94[facility] GaxslmlEZZKRHQVUJ5555-66-87 20:30:00 Test Item Value Reference Range Interpretation Comments PT (test code = PT) 12.5 s 12.0-14.7 [facility] ZoecukwNNABSANPPQ5835-87-64 20:30:00 Test Item Value Reference Range Interpretation Comments PTT (test code = PTT) 30.3 s 22.9-35.8 [facility] WrsnxaxNJJSWNSKMP9916-48-02 20:30:72058Wntshptt HermannHEMATOLOGY 2015-01-07 20:30:0013.4[facility] MbjbmecPOYKFXFHCG0842-82-26 20:30:009.8[facility] MwungeiIUAVERFOCN9201-66-71 20:30:0093.3[facility] XhqjgkoEFGOFCQYLL3706-74-73 20:30:0032.5[facility] CcdvexjJVRNCMENUI2070-05-69 20:30:00 Test Item Value Reference Range Interpretation Comments MCH (test code = MCH) 30.4 pg 27.0-31.0 [facility] TskdrioJEABUUPSBU1410-05-84 20:30:0042.1[facility]annHEMATOLOGY 2015-01-07 20:30:004.51[facility] QqbmspmOHCHABKJJH1802-78-93 20:30:004.7[facility] VqdqqosUADAWDZTVU3472-93-82 20:30:0013.7[facility] OojhfjwRFVVTLNWAI6414-23-01 20:30:002.3[facility] IwukkdcLZLLSPNHRF4416-20-24 20:30:000.3[facility] [place] NJPXUVMXKG2808-77-56 20:30:000.1[facility] XeeeigzYOWWPYKTDK3147-17-82 20:30:00 42.7[facility] RqvdghsZQUMWMWXJK5481-36-97 20:30:000.2[facility]annHEMATOLOGY 2015-01-07 20:30:002.0[facility] OoitidyJEQQJECRRL6409-22-66 20:30:0049.5[facility] IwziyonHGXPIQMIVB2187-65-70 20:30:006.4[facility] KsyvxomUYIEPYWRWN5481-44-95 20:30:001.2[facility]annCHEM VASEJ6854-64-55 20:30:002.2[facility]annCHE[facility] GNRSQ6865-88-19 20:30:06529Yfzbldnv HermannCHEM LYCXY1360-87-25 20:30:000.5 [facility]annCHE[facility] NELNI4010-02-11 20:30:0011[facility]annCHEM PANEL 2015-01-07 20:30:0091[facility]annCHEM UVRZL9706-65-76 20:30:0022[facility]annCHEM UCMKB8986-45-12 20:30:004.3[facility]annCHE[facility] XPVHR4253-49-37 16:11:003.4[facility]annCHEM PSASL8077-85-03 16:11:001.2[facility]annCHE[facility] YXGHB0108-68-54 16:11:000.4[facility]annCHE[facility] DFJGE4883-43-97 16:11:004.0 [facility]annCHE[facility] POORS7778-38-12 16:11:0020[facility] HermannCHEM PANEL 2014-11-15 16:11:0014[facility]annCHEM FSNSS8251-47-99 16:11:007.4[facility]annCHE[facility] PDTKX6775-47-47 16:11:000.1[facility]annCHE[facility] ARAWQ3288-38-33 16:11:0078[facility]annCHEM LEWJP5631-59-23 16:11:000.5[facility] [place] VBWLINBKGBZX3494-26-49 16:11:009.1[facility] YmbnlkgGGXOSEKVMTVR7118-80-16 16:11:63994Gswrhoea UivqavmQWFGVPEYHQRQ9534-39-57 16:11:0017[facility] [place] KXCSGPTFONUD8789-23-56 16:11:0081[facility] AxdbzwiWKRNBXADTKHE8048-55-27 16:11:00 9.0[facility] TwuvhhzVTYXXFFCEPII4823-38-40 16:11:0031[facility] HermannELECTROLYTES 2014-11-15 16:11:000.6[facility] UpgbdkdOTGCNWPLRBMF0743-92-59 16:11:99725Zpaowwdj EbbxggxPSDRUNDVCPSK1902-45-91 16:11:57695Ptkbyijz YkwhuhrEKBXHVKAAWSI1183-56-96 16:11:004.1[facility] DvzrcklWDQGCALWVS2869-82-60 16:11:000.3[facility] [place] KXCATCDKHJ5329-47-21 16:11:000.7[facility] IyteoueWIDUSUJVVM6356-31-38 16:11:009.1 [facility] RpuyiuuYHXMZZQCNC0478-65-13 16:11:0046.9[facility] HermannHEMATOLOGY 2014-11-15 16:11:0043.0[facility] AbskzrbYACZOSYGTJ4678-65-06 16:11:002.4[facility] QijlejgHJSICILNHE5469-67-60 16:11:002.emorial NkvmornSBFORAUIWA7420-09-34 16:11:000.5[facility] AymmhihMRVJRBTSYW9997-09-90 16:11:0011.1[facility] [place] MSGNFJJBKT5138-62-23 16:11:004.47[facility] UcbknnqGVIPXXLZFT3049-75-45 16:11:00 13.3[facility] MezpxrhSFRSLFCJFF4481-29-58 16:11:0013.2[facility] HermannHEMATOLOGY 2014-11-15 16:11:78251Hiibmsok OuccddkLILFLMOYUC2906-87-24 16:11:005.1[facility] JzxfklrFKSGKHAOSG2372-02-27 16:11:0041.7[facility] EzdppceKOABREOVGX2340-01-14 16:11:00 Test Item Value Reference Range Interpretation Comments MCH (test code = MCH) 29.7 pg 27.0-31.0 [facility] AwubbsqJYIRIFXDWO1212-32-77 16:11:0031.9[facility] HermannHEMATOLOGY 2014-11-15 16:11:0093.2[facility] MdbimrmINJWFVBCJK4487-77-40 16:11:0011[facility] LrvxfgmRKRXRWKGVX0447-55-49 16:11:13446Ejmivpuy [place]
--- NOTE | 2020-11-01 12:25 | RAD REPORT ---
EXAM DESCRIPTION: Jorge Single View11/01/2020 12:16 pm CLINICAL HISTORY: Cough COMPARISON: 2018 FINDINGS: The lungs appear clear of acute infiltrate. The heart is normal size IMPRESSION: No acute abnormalities displayed
--- NOTE | 2020-11-01 12:43 | RAD REPORT ---
EXAM DESCRIPTION: CT - Head Brain Wo Cont - 11/01/2020 12:27 pm CLINICAL HISTORY: Headache COMPARISON: 2019 TECHNIQUE: Computed axial tomography of the head was obtained. IV contrast was not requested. All CT scans are performed using dose optimization technique as appropriate and may include automated exposure control or mA/KV adjustment according to patient size. FINDINGS: An intracranial bleed is not seen . The ventricles are normal in caliber. No extra-axial fluid collection is noted. Right craniotomy. 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 Fluid within the sphenoid sinus IMPRESSION: No acute intracranial abnormality is seen. If patient's symptoms persist MRI of the bra in would be recommended. Fluid within the sphenoid sinus may indicate acute sinusitis
[2020-11-01 12:48] LABS: Urine Blood 1+ (Negative); Urine Glucose Negative (Negative); Urine Protein Negative (Negative); Urine Specific Gravity >=1.030 (1.005-1.030); Urine pH 5.5 (5.0-7.0)
[2020-11-01 12:50] LABS: Basophils % 0.4 % (0-1.3); Hematocrit 42.3 % (36.0-45.0); Lymphocytes % 24.1 % (15.3-44.8); MPV 9.5 fL (7.6-11.3); RBC Red Blood Cell Count 4.78 M/uL (3.86-4.86)
[2020-11-01 12:51] LABS: Absolute Lymphocytes (CBC) 1.6 K/uL (0.7-4.9)
[2020-11-01 13:06] LABS: ALT/SGPT 22 U/L (12-78); AST/SGOT 19 U/L (15-37); Albumin 4.2 g/dL (3.4-5.0); Alkaline Phosphatase 96 U/L (45-117); BUN Blood Urea Nitrogen 18 mg/dL (7-18); Bicarbonate 28 mmol/L (21-32); Bilirubin Direct 0.1 mg/dL (0-0.2); Bilirubin Total 0.6 mg/dL (0.2-1.0); Glucose Level 94 mg/dL (74-106); Lipase 112 U/L (73-393); Potassium 4.1 mmol/L (3.5-5.1); Protein, Total 7.7 g/dL (6.4-8.2); Sodium Level 139 mmol/L (136-145)
[2020-11-01] MEDS ORDERED: KETOROLAC 30 MG/ML INJ ONE (14:26)
[2020-11-01] MEDS ORDERED: CEFTRIAXONE/SWI 1gm 1 GM/10 ML SYR ONE (14:26)
[2020-11-01] MEDS ORDERED: NA CHLORIDE 0.9% 100 ML ONE (14:26)
--- NOTE | 2020-11-01 14:37 | ER ---
Nurse's Notes [facility] Name: Brittany Schulte Age: 55 yrs Sex: Female : 1965 Arrival Date: 11/01/2020 Time: 11:06 Bed 14 Private MD: Rishi Alfaro H Diagnosis: Acute sinusitis;Headache Presentation: 11/01 11:14 Chief complaint: Chief complaint: Patient states: 3 years ago, my whole body started ca1 tingling and numb. They did a bunch of test and found nothing. A week ago, started having headache on the R side that goest down to my neck and to my back. Reports dizziness and nausea. Coronavirus screen: Client denies travel out of the [place] in the last 14 days. headache, nausea, Client presents with at least one sign or symptom that may indicate coronavirus-19. Standard/surgical mask placed on the client. Provider contacted for isolation considerations. Ebola Screen: Patient negative for fever greater than or equal to 101.5 degrees Fahrenheit, and additional compatible Ebola Virus Disease symptoms Patient denies exposure to infectious person. Patient denies travel to an Ebola-affected area in the 21 days before illness onset. No symptoms or risks identified at this time. Initial Sepsis Screen: Does the patient meet any 2 criteria? No. Patient's initial sepsis screen is negative. Does the patient have a suspected source of infection? No. Patient's initial sepsis screen is negative. Risk Assessment: Do you want to hurt yourself or someone else? Patient reports no desire to harm self or others. Note [employer] #[id number]. Onset of symptoms was November 01, 2020. 11:14 Method Of Arrival: Ambulatory ca1 11:14 Acuity: ANNMARIE 3 ca1 Triage Assessment: 11:30 General: Appears in no apparent distress. uncomfortable, Behavior is cooperative, bp appropriate for age, anxious. Pain: Complains of pain in head. EENT: No deficits noted. Neuro: Reports numbness in GENERALIZED. Cardiovascular: No deficits noted. Respiratory: No deficits noted. GI: No signs and/or symptoms were reported involving the gastrointestinal system. : No signs and/or symptoms were reported regarding the genitourinary system. Derm: No deficits noted. Musculoskeletal: Circulation, motion, and sensation intact. Range of motion: intact in all extremities, Reports pain in back. Historical: - Allergies: 11:22 Lisinopril (Cough); ca1 - PMHx: 11:22 epilepsy; Hypertension; ca1 - PSHx: 11:22 Brain Sx 2014; ca1 - Immunization history:: Adult Immunizations not up to date. - Social history:: Smoking status: Patient denies any tobacco usage or history of. Screenin:49 Abuse screen: Denies threats or abuse. Denies injuries from another. Nutritional bp screening: No deficits noted. Tuberculosis screening: No symptoms or risk factors identified. Fall Risk None identified. Assessment: 11:30 General: SEE TRIAGE NOTE. bp 12:30 Reassessment: No changes from previously documented assessment. Patient and/or family bp updated on plan of care and expected duration. Pain level reassessed. Neuro: Level of Consciousness is awake, alert, obeys commands, Oriented to Appropriate for age. 14:00 Reassessment: No changes from previously documented assessment. Patient and/or family bp updated on plan of care and expected duration. Pain level reassessed. Patient states symptoms have improved. 15:23 Reassessment: PT D/C HOME AMBULATORY, DX WITH SINUSITIS. bp Vital Signs: 11:14 BP 156 / 85; Pulse 80; Resp 16 S; Temp 97.8(TE); Pulse Ox 97% on R/A; Weight 65.77 kg ca1 (R); Height 5 ft. 5 in. (165.10 cm) (R); Pain 9/10; 12:30 BP 138 / 82; Pulse 79; Resp 17; Pulse Ox 98% ; bp 14:00 BP 132 / 75; Pulse 64; Resp 13; Pulse Ox 100% ; bp 15:00 BP 114 / 85; Pulse 70; Resp 15; Pulse Ox 100% ; bp 11:14 Body Mass Index 24.13 (65.77 kg, 165.10 cm) ca1 ED Course: 11:06 Patient arrived in ED. am2 11:06 Rishi Alfaro DO is Private Physician. am2 11:21 Triage completed. ca1 11:22 Arm band placed on right wrist. ca1 11:30 Patient has correct armband on for positive identification. Bed in low position. Call bp light in reach. Side rails up X2. 11:33 Marinas, Dann, SALES PLANNING MANAGER is PHCP. pm1 11:33 Ezio Gilman MD is Attending Physician. pm1 11:47 Dennis Menjivar, RN is Primary Nurse. bp 12:11 Placed in gown. Adult w/ patient. Warm blanket given. equipment monitor phototypesetting on. Pulse ox on. 5 NIBP on. 12:11 EKG done, by ED staff, reviewed by Ezio Gilman MD. [facility] 12:16 Chest Single View XRAY In Process Unspecified. EDMS 12:26 CT Head Brain wo Cont In Process Unspecified. EDMS 12:30 Inserted saline lock: 20 gauge in right forearm, using aseptic technique. Blood bp collected. 15:24 No provider procedures requiring assistance completed. IV discontinued, intact, bp bleeding controlled, No redness/swelling at site. Pressure dressing applied. Administered Medications: 14:10 Drug: Rocephin (cefTRIAXone) 1 grams Route: IV; Rate: calculated rate; Site: right bp antecubital; 15:25 Follow up: IV Status: Completed infusion; IV Intake: 50ml bp 14:10 Drug: TORadol - (ketorolac) 15 mg Route: IVP; Site: right antecubital; bp 15:25 Follow up: Response: Pain is decreased bp Intake: 15:25 IV: 50ml; Total: 50ml. bp Outcome: 14:36 Discharge ordered by . pm1 15:24 Discharged to home ambulatory. bp 15:24 Condition: stable 15:24 Discharge instructions given to patient, Instructed on discharge instructions, follow up and referral plans. medication usage, Demonstrated understanding of instructions, follow-up care, medications, Prescriptions given X 1. 15:25 Patient left the ED. bp Signatures: Dispatcher [employer] EDMS Dann Wade NP SALES PLANNING MANAGER pm1 Brittany Corbett 5 Katie Flores am2 Dennis Menjivar, RN RN bp Su Waller RN RN ca1 Corrections: (The following items were deleted from the chart) 12:50 11:30 Maintain EMS IV. Dressing intact. Good blood return noted. Site clean \T\ dry. bp bp
--- NOTE | 2020-11-01 14:37 | EDPHYS ---
Physician Documentation [facility] Name: Brittany Schulte Age: 55 yrs Sex: Female : 1965 Arrival Date: 11/01/2020 Time: 11:06 Bed 14 Private MD: Rishi Alfaro H ED Physician Ezio Gilman HPI: 11/01 12:06 This 55 yrs old Female presents to ER via Ambulatory with complaints of Back pm1 Pain, Headache - Right side. 12:06 The patient complains of pain to the right side of head. The patient describes the pm1 headache as aching. Onset: The symptoms/episode began/occurred Onset: The symptoms/episode began/occurred 3 year(s) ago. Associated signs and symptoms: Pertinent positives: right sided neck pain and left sided lower back pain. Severity of symptoms: in the emergency department the pain headache is worse the past 1 week. Headache History: The patient has had previous headaches and this one is similar to previous episodes. The patient has been recently seen by a physician: the patient's primary care provider, with similar presenting complaints, Ordered MRI for the patient and the patient was hoping to get the MRI completed in the ER. Patient with a history of epilepsy. Had a craniotomy to relieve her seizures. Since having the surgery, she has had right sided headaches, right neck sided posterior neck pain, and left lower back pain. Patient reports that the headache is worse the past 1 week and saw her PCP for the same complaint. Had an outpatient MRI ordered. Historical: - Allergies: 11:22 Lisinopril (Cough); ca1 - PMHx: 11:22 epilepsy; Hypertension; ca1 - PSHx: 11:22 Brain Sx 2014; ca1 - Immunization history:: Adult Immunizations not up to date. - Social history:: Smoking status: Patient denies any tobacco usage or history of. ROS: 12:06 Constitutional: Negative for fever, chills, and weight loss, Eyes: Negative for injury, pm1 pain, redness, and discharge, ENT: Negative for injury, pain, and discharge. 12:06 Cardiovascular: Negative for chest pain, palpitations, and edema, Respiratory: Negative for shortness of breath, cough, wheezing, and pleuritic chest pain, Abdomen/GI: Negative for abdominal pain, nausea, vomiting, diarrhea, and constipation. 12:06 : Negative for injury, bleeding, discharge, and swelling, MS/Extremity: Negative for injury and deformity, Skin: Negative for injury, rash, and discoloration. 12:06 Neck: Positive for tenderness, of the right trapezius, Negative for stiffness, bony tenderness. 12:06 Back: Positive for of the left low back pain. 12:06 Neuro: Positive for headache, Negative for numbness, tingling, weakness. Exam: 12:06 Constitutional: This is a well developed, well nourished patient who is awake, alert, pm1 and in no acute distress. Head/Face: Normocephalic, atraumatic. 12:06 Back: No spinal tenderness. No costovertebral tenderness. Full range of motion. 12:06 Skin: Warm, dry with normal turgor. Normal color with no rashes, no lesions, and no evidence of cellulitis. MS/ Extremity: Pulses equal, no cyanosis. Neurovascular intact. Full, normal range of motion. 12:06 Neck: External neck: tenderness, that is mild, of the right trapezius, C-spine: vertebral tenderness, is not appreciated, ROM/movement: is normal, is supple. 12:06 Cardiovascular: Exam negative for acute changes, Rate: normal, Rhythm: regular, Pulses: no pulse deficits are appreciated. 12:06 Respiratory: Exam negative for acute changes, respiratory distress, shortness of breath, Breath sounds: are clear throughout. 12:06 Abdomen/GI: Inspection: abdomen appears normal, Palpation: abdomen is soft and non-tender, in all quadrants. 12:06 Back: pain, is absent, normal spinal alignment noted, vertebral tenderness, is not appreciated. 12:06 Neuro: Orientation: is normal, Mentation: is normal, Cerebellar function: Romberg testing is negative, normal finger to nose testing, Motor: moves all fours, strength is normal, strength is 5/5 in all extremities, Sensation: is normal, no obvious gross deficits, Gait: is steady, at a normal pace, without difficulty. Vital Signs: 11:14 BP 156 / 85; Pulse 80; Resp 16 S; Temp 97.8(TE); Pulse Ox 97% on R/A; Weight 65.77 kg ca1 (R); Height 5 ft. 5 in. (165.10 cm) (R); Pain 9/10; 12:30 BP 138 / 82; Pulse 79; Resp 17; Pulse Ox 98% ; bp 14:00 BP 132 / 75; Pulse 64; Resp 13; Pulse Ox 100% ; bp 15:00 BP 114 / 85; Pulse 70; Resp 15; Pulse Ox 100% ; bp 11:14 Body Mass Index 24.13 (65.77 kg, 165.10 cm) ca1 MDM: 11:34 Patient medically screened. [facility] 11:59 Data reviewed: vital signs. Data interpreted: Pulse oximetry: on room air is 97 %. pm1 Interpretation: normal. 14:34 Counseling: I had a detailed discussion with the patient and/or guardian regarding: the pm1 historical points, exam findings, and any diagnostic results supporting the discharge/admit diagnosis, lab results, radiology results, the need for outpatient follow up, to return to the emergency department if symptoms worsen or persist or if there are any questions or concerns that arise at home. 11/01 12:00 Order name: Basic Metabolic Panel; Complete Time: 13:25 pm1 11/01 12:00 Order name: CBC with Diff; Complete Time: 13:25 pm1 11/01 12:00 Order name: CT Head Brain wo Cont; Complete Time: 13:25 pm1 11/01 12:00 Order name: Hepatic Function; Complete Time: 13:25 pm1 11/01 12:00 Order name: Lipase; Complete Time: 13:25 pm1 11/01 12:48 Order name: Urine Dipstick-Ancillary; Complete Time: 13:25 EDMS 11/01 12:00 Order name: IV Saline Lock; Complete Time: 12:49 pm1 11/01 12:00 Order name: Labs collected and sent; Complete Time: 12:49 pm1 11/01 12:00 Order name: Chest Single View XRAY; Complete Time: 12:26 pm1 11/01 12:00 Order name: Urine Dipstick-Ancillary (obtain specimen); Complete Time: 12:49 pm1 11/01 12:00 Order name: Urine Test (obtain specimen); Complete Time: 12:49 pm1 11/01 12:19 Order name: EKG; Complete Time: 12:19 pm1 11/01 12:19 Order name: EKG - Nurse/Tech; Complete Time: 12:49 pm1 Administered Medications: 14:10 Drug: Rocephin (cefTRIAXone) 1 grams Route: IV; Rate: calculated rate; Site: right bp antecubital; 15:25 Follow up: IV Status: Completed infusion; IV Intake: 50ml bp 14:10 Drug: TORadol - (ketorolac) 15 mg Route: IVP; Site: right antecubital; bp 15:25 Follow up: Response: Pain is decreased bp Disposition: 11/01/20 14:36 Discharged to Home. Impression: Acute sinusitis, Headache. - Condition is Stable. - Discharge Instructions: General Headache Without Cause, Sinusitis, Adult. - Prescriptions for Augmentin 875- 125 mg Oral Tablet - take 1 tablet by ORAL route every 12 hours for 10 days; 20 tablet. - Medication Reconciliation Form, Thank You Letter, Antibiotic Education, Prescription Opioid Use form. - Follow up: Emergency Department; When: As needed; Reason: Worsening of condition. Follow up: Private Physician; When: 2 - 3 days; Reason: Recheck today's complaints, Continuance of care, Re-evaluation by your physician. - Problem is new. - Symptoms have improved. Addendum: 11/03/2020 06:38 Co-signature as Attending Physician, Ezio Gilman MD I agree with the assessment and c huynh plan of care. Signatures: Dispatcher [employer] EDEzio Cohen MD MD cha Marinas, Patrick, PRESERVATIVE FILLER MACHINE OPERATOR PRESERVATIVE FILLER MACHINE OPERATOR pm1 Dennis Menjivar RN RN bp Acob, Cheryl, RN RN ca1 Corrections: (The following items were deleted from the chart) 11/01 15:25 14:36 11/01/2020 14:36 Discharged to Home. Impression: Acute sinusitis; Headache. bp Condition is Stable. Forms are Medication Reconciliation Form, Thank You Letter, Antibiotic Education, Prescription Opioid Use. Follow up: Emergency Department; When: As needed; Reason: Worsening of condition. Follow up: Private Physician; When: 2 - 3 days; Reason: Recheck today's complaints, Continuance of care, Re-evaluation by your physician. Problem is new. Symptoms have improved. pm1
[2020-11-01 15:32] VITALS: TEMP 97.8
[2020-11-01 15:35] VITALS: O2SAT 100
[2020-11-01 15:36] VITALS: BP 114/85
--- NOTE | 2020-11-02 16:37 | EKG ---
Test Date: 2020-11-01 Test Time: 12:15:10 Human Resources Consultant: BRIAN MEASUREMENT RESULTS: Intervals: Rate: 72 ME: 176 QRSD: 62 QT: 386 QTc: 422 [place]: P: 64 ME: 176 QRS: 50 T: 40 INTERPRETIVE STATEMENTS: Normal sinus rhythm Normal ECG Compared to ECG 11/09/2019 14:02:52 Myocardial infarct finding no longer present Electronically Signed On 11-02-20 16:33:19 CDT by Lavelle Cortes
== END 2020-11-01 15:25 | disposition home or self-care (01) ==
LOC: ER 11:04
DX: J01.90 Acute sinusitis, unspecified (principal); I10 Essential (primary) hypertension; Z88.8 Allergy status to other drugs, medicaments and biological substances
CPT/HCPCS: 93005; 85025; 80048; 36415; 80076; 81003; 83690; 70450; 71045; J0696; 96365; 96375; 99285